=== PATIENT | female | born 1975 | race Caucasian/White ===

== ENCOUNTER 2016-10-31 08:42 | Day surgery (SDC) | payer OTHER ==
[~2016-10-31] VITALS: Ht 162.6 cm; Wt 87.5 kg
[2016-10-31] VITALS (10 sets, daily range): BP systolic 93–108; BP diastolic 40–65; PULSE 70–94; RESP 12–23; O2SAT 93–100
[~2016-10-31 08:42] MED LIST: ALBU8.5H4 IH; CARI350T PO; CeFAZolin Inj 2 GM in IV Premix 1 EACH IV SCH; DULO60CA42 PO; ESOM40CA41 PO; HYDR-3740 PO; HYDR-4150 PO; LEVO100T6 PO; MULT-1018 PO; ONDA8TAB10 PO; OXYC1TAB24 PO; PREG150C PO; RES15 PO; SIMV40TA5 PO; SUMA100T2 PO; TAMS0.4C98 PO
[2016-10-31] MEDS ORDERED: fentaNYL-PF 50 mCg/mL 2 mL Inj ONE (08:43)
[2016-10-31] MEDS ORDERED: Rocuronium 10 mg/mL 5 mL Inj ONE (08:43)
[2016-10-31] MEDS ORDERED: Dexamethasone 4 mg/mL Inj ONE (08:43)
[2016-10-31] MEDS ORDERED: Ondansetron 2 mg/mL 2 mL Inj ONE (08:43)
[2016-10-31] MEDS ORDERED: EPHEDrine/NS 5 mg/mL 5 mL Syringe ONE (08:43)
[2016-10-31] MEDS ORDERED: Propofol 10,000 mCg/mL 20 mL Inj ONE (08:43)
[2016-10-31] MEDS ORDERED: Neostigmine 1 mg/mL 5 mL Inj ONE (08:43)
[2016-10-31] MEDS ORDERED: Morphine PF 1 mg/mL 10 mL Inj ONE (08:43)
[2016-10-31] MEDS ORDERED: Remifentanil 1 mg/3 mL Inj ONE (08:43)
[2016-10-31] MEDS ORDERED: Glycopyrrolate 0.2 mg/mL 5 mL Inj ONE (08:43)
[2016-10-31] MEDS ORDERED: Phenylephrine 10,000 mCg/mL Inj ONE (08:43)
[2016-10-31] MEDS: Lactated Ringer's 1,000 ML IV SCH ×2 (09:13→11:51)
[2016-10-31] MEDS ORDERED: ALBU8.5H2 INHALATION (09:47)
[2016-10-31] MEDS ORDERED: LEVE10006 PO (09:59)
[2016-10-31] MEDS ORDERED: LEVO112T4 PO (09:59)
[2016-10-31] MEDS ORDERED: OXYC30TA77 PO (10:01)
[2016-10-31] MEDS ORDERED: BACL10TA PO (10:01)
[2016-10-31] MEDS ORDERED: CeFAZolin 2 Gm/50 mL D5W Duplex Bag IV ONE (11:47)
[2016-10-31] MEDS ORDERED: Bupivacaine-MPF 0.5% W/EPI 30 mL Inj INFILTRATE ONE (12:17)
[2016-10-31] MEDS ORDERED: Lactated Ringer's 1,000 ML IV SCH (12:23)
[2016-10-31] MEDS ORDERED: Lactated Ringer's 500 ML IV PRN (12:23)
[2016-10-31] MEDS ORDERED: hydrALAZINE 20 mg/mL Inj IVPUSH PRN (12:25)
[2016-10-31] MEDS ORDERED: Ondansetron 2 mg/mL 2 mL Inj IVPUSH PRN (12:25)
[2016-10-31] MEDS ORDERED: Atropine 0.4 mg/mL Inj IVPUSH PRN (12:25)
[2016-10-31] MEDS ORDERED: Labetalol 5 mg/mL 4 mL Inj IV PRN (12:25)
[2016-10-31] MEDS ORDERED: Phenylephrine 10,000 mCg/mL Inj IVPUSH PRN (12:25)
[2016-10-31] MEDS ORDERED: EPHEDrine Sulfate 50 mg/mL Inj IVPUSH PRN (12:25)
--- NOTE | 2016-10-31 12:25 | PCM.HPANE ---
Patient Data Date of Service: Oct 31, 2016 ([id number]) Surgeon Admitting Provider: Attending Provider:Nilesh Garrett MD Primary Care Physician:Dallin Schaefer Other Provider:Edenilson Ferrara Anesthesia Reason for Visit Right Breast Cancer Ht/WT & BMI Height (Feet): 5 Height (Inches): 4.00 Weight (Kilograms): 87.5 Body Mass Index 32.00 Allergies Coded Allergies: hydromorphone (Verified Allergy, Unknown, MAKES HER SICK, 03/01/16) meperidine (Verified Allergy, Unknown, IV - RUINS IV SITES, 03/01/16) metoclopramide (Verified Allergy, Unknown, MAKES HER FEEL LIKE SKIN CRAWLS BAD, 03/01/16) prochlorperazine (Verified Allergy, Unknown, 03/01/16) prochlorperazine edisylate (Verified Allergy, Unknown, 03/01/16) prochlorperazine maleate (Verified Allergy, Unknown, 03/01/16) promethazine (Verified Allergy, Unknown, 03/01/16) Uncoded Allergies: FLU VACCINE (Allergy, Unknown, 02/05/14) Past Anesthesia History Anesthesia History: Positive for:: Anesthesia Reactions (N/V WITH GASES ), Denies:: Abnormal Airway, Difficult Intubation, Fam Anesthesia Reaction, Fam Malignant Hypertherm, Malignant Hyperthermia Diabetes History Hx Diabetes?: No MRSA MRSA: No Medications Home Meds Incl Beta Nikolas: No Active Scripts Ondansetron ODT 8 Mg Tab.rapdis8 Mg PO QID PRN For Nausea #20 TABLET Prov:Mandeep Pickard MD 03/02/16 oxyCODONE-Acetaminophen 5-325 mg 1 Each Tablet1 Tab PO Q4H PRN For Pain #20 TABLET Prov:Mandeep Pickard MD 03/02/16 Reported Medications Baclofen 10 Mg Icubkj02 Mg PO QID #112 10/31/16 Oxycodone ER (Oxycontin)30 Mg Tab.er.12h30 Mg PO BID #60 10/31/16 Levothyroxine 112 Mcg Qdhnfe801 Mcg PO DAILY #30 10/31/16 Levetiracetam 1,000 Mg Tablet1,000 Mg PO BID #60 10/31/16 Albuterol HFA (Proair HFA)8.5 Gm Hfa.aer.ad2 Puffs INHALATION Q4H #1 INHALER 10/31/16 Duloxetine (Cymbalta)60 Mg Capsule.dr60 Mg PO DAILY Ref 0 06/08/15 Esomeprazole Magnesium (Nexium)40 Mg Capsule.dr40 Mg PO DAILY 30 Days Ref 0 03/06/15 Simvastatin 40 Mg Gyzomu78 Mg PO HS 30 Days Ref 0 03/06/15 Pregabalin (Lyrica)150 Mg Sdszvvq223 Mg PO TID Ref 0 03/06/15 Multivitamin (Multi Vitamin Daily)1 Each Tablet1 Each PO DAILY 02/05/14 Sumatriptan Succinate 100 Mg Ooqfhl76 PO PRN PRN headache Please verify dose/frequency, patient states 250mg QID. Maximum daily dosage is 200mg of sumatriptan succinate. 02/05/14 Discontinued Reported Medications Hydrocodone/Acetaminophen ([place]erson 5-325 Tablet)1 Each Tablet1 Each PO QID 06/08/15 Temazepam 15 Mg Deqiyot54 Mg PO HS PRN For Insomnia 30 Days Ref 0 03/06/15 Levothyroxine 100 Mcg Lggcfh852 Mcg PO DAILY For Thyroid Replacement Ref 0 03/06/15 Carisoprodol (Soma)350 Mg Zksbrc525 Mg PO QID PRN For Spasm 03/06/15 Ondansetron ODT 8 Mg Tab.rapdis8 Mg PO PRN PRN prn 02/20/15 Albuterol HFA 8.5 Gm Hfa.aer.ad2 Puff IH Q4-6H PRN prn Ref 0 02/05/14 Nadolol 20 Mg Agwxac92 Mg PO DAILY 30 Days Ref 0 02/05/14 Discontinued Scripts Tamsulosin (Flomax)0.4 Mg Capsule0.4 Mg PO DAILY #2 CAPSULE Ref 0 Prov:Mandeep Pickard MD 02/09/16 Ondansetron ODT 8 Mg Tab.rapdis8 Mg PO QID #10 TABLET Prov:Mandeep Pickard MD 02/09/16 Hydrocodone-Acetaminophen 10-325 mg 1 Each Tablet2 Tablet PO Q6H PRN For Pain # 30 TABLET Ref 0 Prov:Mandeep Pickard MD 02/09/16 History History of ENT Problems?: No HEENT History: Positive for:: Sinus Problem (sinus allergies) Denies:: Abnormal Airway Cataracts Difficult Intubation Dysphagia Glaucoma Hearing Problem Hx of Heart Problems?: No Cardiovascular History: Positive for:: Chest Pain (cardiology seen here in ER , everything "fine") Denies:: AICD Atrial Fibrillation Congestive Heart Failure Hypertension Pacemaker Valvular Heart Disease Hx of Respiratory Problem?: Yes Respiratory History: Positive for:: Asthma Use of Inhalers / NEBS Denies:: COPD Cough Hemoptysis Pneumonia Tuberculosis Hx Neurologic Problems?: No Neurological History: Positive for:: Headaches (migraine h/aches) Seizures (MILD COLONICS) Denies:: CVA Dementia Hx of GI Problems?: No Gastrointestinal History: Positive for:: Gastroesphageal Reflux Hiatal Hernia (FIXED WITH GASTRIC SLEEVE PROCEDURE 2013 ) Denies:: Cirrhosis Diverticulitis Rectal Bleeding Hx of Problems?: No Genitourinary History: Positive for:: Kidney Stones Urinary Tract Infection Female Hx: Denies:: Currently Endometriosis Pelvic Inflammatory Problems with Breasts? Skin History: Denies:: History Skin Disorders? Hx Musculoskeletal Problems?: Yes Musculoskeletal History: Positive for:: Back Injury (past injuries,NEURO STIMULATOR IN PLACE) Fibromyalgia Musculoskeletal Trauma (WRIST, ANKEL) Osteoarthritis (SPINE) Denies:: Joint Replacement Hx of Psycho/Social Problems?: Yes Psycho Social History: Positive for:: Anxiety (CHRONIC) Hx Depression (MAJOR) Suicide Attempt (at age 18) Denies:: Bipolar Disorder Hx Surgeries?: Yes (BREAST REDUCTION, SPINAL CORD STIM, GASTRIC SLEAVE, LAP DEVIN.) Hx Any Other Health Problems?: Yes Other History: Positive for:: Cancer (R BREAST) Hospitalization Thyroid Disease (HYPO) Denies:: Endocrine Disease History Blood Transfusions: Denies:: Blood Transfusions Hx Diabetes: No Hx Alcohol Use: NoHx Substance Use: No Smoking Status: Never Smoker Have You Smoked inLast 12 mo: No Stop/Bang S-Snoring: Do You Snore Loudly: No T-Tired: feel tired, fatigued: Yes O-Obsered: Observed not breath: No P-Blood Pressure: treated: No B- Body Mass Index > 35 kg/m2: No A- Age over 50: No N- Neck Large Circumference: No G- Gender Male: No MILLY Total Score: 1 Risk Assessment Category Category 1A: Patient has history of documented sleep apnea, and HAS NOT received any narcotic, sedative or anesthesia administration during this stay. Category 1B: Patient has history of documented sleep apnea, and HAS received any narcotic , sedative or anesthesia administration during this stay Category 2: Patient has SUSPECTED Obstructive Sleep Apnea, and HAS received any narcotic , sedative or anesthesia administration during this stay. Category 3: Patient has SUSPECTED Obstructive Sleep Apnea and HAS NOT received narcotic, sedative or anesthesia administration during this stay. Category 4: Outpatient in Procedural Areas with known sleep apnea or who screen positive for High Risk via the STOP/BANG questionnaire. Exam Exam Vital Signs Vital Signs Date Time Temp Pulse Resp B/P Pulse Ox O2 Delivery O2 Flow Rate FiO2 10/31/16 10:23 CPAP/BIPAP 10/31/16 10:22 36.4 82 16 98/65 97 Room Air General Appearance: Alert, Oriented X3, Cooperative, No Acute Distress HEENT/AIRWAY: MP 2 Lungs: Clear to Auscultation, Normal Air Movement Heart: Exam Unremarkable, Regular Rate/Rhythm, No Murmurs/Rubs/Gallops Meds/Labs/Diagnostics Admission Meds Current Medications Lactated Ringer's (Lr) 1,000 ml @ 120 mls/hr Q8H20M IV Last administered on 11:51; Start 10/31/16 at 05:00; Stop 10/31/16 at 13:19 Bupivacaine HCl/ Epinephrine Bitart (Sensorcaine-MPF 0.5% W/EPI Inj) 30 ml STK- MED ONCE INFILTRATE Last administered on 10/31/16 12:17; Start 10/31/16 at 12: 17; Stop 10/31/16 at 12:18; Status DC Plan Impression Patient chart reviewed, patient interviewed and anesthestic plan with risks, benefits, and alternatives discussed, and informed consent obtained. NPO Status: 2100 10/30/16 ASA Physical Status: ASA3 Severe Disease (Breast cancer) Anesthetic Plan: GA Bene/Risks/Altern/Consents: Yes HP Complete Prior to Induction: Yes Baltazar Paniagua MD Oct 31, 2016 12:25
--- NOTE | 2016-10-31 13:17 | PCM.SURGOP ---
Surgical Operative Report Date of Service: Oct 31, 2016 Pre Operative Diagnosis Right breast cancer Post Operative Diagnosis Same Procedure: Wire localized right partial mastectomy, right axillary sentinel lymph node biopsy Surgeon and Director Of Midwifery/Staff Midwife: Surgeon: Nilesh Garrett MD Assistants: Rosalind Melo PA-C Indication for Procedure 40-year-old woman who was found on screening mammogram to have branching heterogeneous calcifications in the right breast 11 o'clock position. 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 She could not have an MRI because of a spinal neurostimulator. After discussion of risks and benefits, she agreed to proceed with wire localized right partial mastectomy and right axillary sentinel lymph node biopsy. Findings: There were 2 sentinel nodes. The first sentinel node had an ex vivo gamma count of 509, the second sentinel node had an ex vivo count of 516, and the background count was 7. Procedure Details Preoperatively, the patient underwent wire localization in the [facility]. She then underwent right breast radiotracer injection for sentinel node identification, which was done just lateral to her breast reduction scar. She was then brought to the operating room, where she underwent smooth induction of general anesthesia with an LMA. The right breast was prepped and draped in wide sterile fashion. A procedural pause was performed according to the SCOAP checklist, and all were found to be in agreement. A transverse incision was made in the upper outer quadrant of the right breast, encompassing the wire into the lateral aspect of the incision. Skin flaps were raised superiorly and inferiorly. Once the thick part of the wire was encountered, the wire was used as a guide to perform partial mastectomy. Right breast tissue was dissected free around the wire, and the wire was not encountered during dissection. The tissue was oriented with suture, labeled as right breast tissue, upper outer quadrant, and a specimen radiograph was obtained. This confirmed that the mammographic clip and calcifications had been localized successfully. That tissue was sent for permanent pathology. Separate shave margins were sent separately from the inferior, medial, and lateral aspects of the cavity. Those specimens were 5-10 mm in thickness. There is oriented with suture, and sent for permanent pathology, labeled as inferior margin, medial margin, lateral margin respectively. The cavity was then marked with hemoclips circumferentially. The breast parenchyma was closed with a single deep 3-0 Vicryl suture. [place] lymph node biopsy was then performed through a separate incision made at the inferior border of the hairbearing skin of the right axilla. Dissection was carried down through the subcutaneous tissue until the axillary fascia was incised. Using the gamma counter as a guide, the area of maximum radiotracer activity was identified and dissected free from the surrounding tissue. There were actually 2 separate sentinel nodes. The first sentinel node had an ex vivo count of 509. The second sentinel node had an ex vivo count of 516. Both nodes were small, and not particularly firm by palpation. There were sent separately for permanent pathology. The background count in the right axilla was 7. The axillary fascia was closed with a single deep 3-0 Vicryl suture. Both skin incisions were closed using running 4-0 Vicryl subcuticular stitches. Dermabond was applied to the skin as a dressing. At the end of the case all needle and sponge counts were correct 2. The patient was awakened from anesthesia without difficulty, and taken to the recovery room in satisfactory condition, having tolerated the procedure well. Complications There were no periprocedural complications identified. Surgical Specimen Removed: Yes Specimen sent to Pathology: Yes Surgical Specimen description: Right breast tissue, upper outer quadrant. Inferior margin. Medial margin. Lateral margin. Right axillary sentinel lymph node #1. Right axillary sentinel lymph node #2. Anesthetic Plan: GA Grafts, Implants: None Output, Estimated Blood Loss: 20 Blood Administration during gurrola: No Drains: None Catheters: None copies to: Kel Santiago MD; Scott Weber MD; Dallin Schaefer Joshua D MD Oct 31, 2016 13:17
[2016-10-31] MEDS: fentaNYL-PF 50 mCg/mL 2 mL Inj IVPUSH PRN ×2 (13:30→13:38)
--- NOTE | 2016-10-31 16:24 | PCM.ANEP1 ---
Post Anesthesia Phase 1 PACU Phase 1 Assessment Date of Service: Oct 31, 2016 Vital Signs Vital Signs Date Time Temp Pulse Resp B/P Pulse Ox O2 Delivery O2 Flow Rate FiO2 10/31/16 15:15 72 13 101/48 96 Room Air 10/31/16 14:15 36.5 70 14 99/54 96 Room Air 10/31/16 14:03 36.4 77 12 98/50 93 Room Air 10/31/16 14:00 80 13 93/43 95 Room Air 10/31/16 13:50 78 15 97/40 96 Room Air 10/31/16 13:35 85 16 100/59 96 Room Air 10/31/16 13:30 89 16 96/55 96 Room Air 10/31/16 13:25 88 23 101/48 96 Room Air 10/31/16 13:21 36.4 94 13 108/63 100 Simple Mask 8 10/31/16 10:23 CPAP/BIPAP 10/31/16 10:22 36.4 82 16 98/65 97 Room Air Anesthetic Administered: GA Level of Alertness: Awake, talking SALINAS's with Equal Strength: Yes Pain: No Nausea or Vomiting: No Oxygen Delivery: Simple Mask Lungs: Clear to Auscultation, Normal Air Movement Dermatome Level: Full Sensation Baltazar Paniagua MD Oct 31, 2016 16:24
--- NOTE | 2016-10-31 16:24 | PCM.ANEP2 ---
Post Anesthesia Evaluation ASA/CMS Post Anesthesia VS in Patient's Normal Range?: Yes Resp Stable; Airway Patent?: Yes CV Function & Hydration Stable: Yes Mental Status Recovered?: Yes Pain control Satisfactory?: Yes N/V Control Satisfactory?: Yes Baltazar Paniagua MD Oct 31, 2016 16:24
--- NOTE | 2016-10-31 17:59 | DRSVH ---
PROCEDURE: NM SENTINEL NODE INJECTION ONLY, RIGHT BREAST RADIOPHARMACEUTICAL: 0.5 mCi Millipore filtered Tc-99m sulfur colloid. INDICATIONS: BREAST CANCER PROCEDURE: The indications, alternatives, benefits, risks, and complications of the procedure were explained to the patient. Written informed consent was obtained and placed in the chart. The area around the nip ple was prepped and draped in a sterile fashion. Tc-99m sulfur colloid was injected in the outer edg e of the areola in the right breast. No image was obtained. IMPRESSION: Administration of radiotracer into the right breast periareolar region for intra-operati ve sentinel lymph node localization. Dictated by: Andie Meier M.D. on 10/31/2016 at 17:58 Approved by: Andie Meier M.D. on 10/31/2016 at 17:58
--- NOTE | 2016-11-01 07:20 | DRSVH ---
SPECIMEN RIGHT BREAST: 10/31/2016 CLINICAL: Breast specimen. Correlation is made to exams dated: 10/31/2016 localization, 10/31/2016 mammogram, 10/02/2016 mammogra m, and 09/19/2016 mammogram - [facility]. A lumpectomy specimen was imaged for the concerning area of grouped pleomorphic calcifications locat ed in the right breast at 9 o'clock anterior depth. This was described on the previous mammography a nd biopsy reports. IMPRESSION: SPECIMEN The imaged specimen includes the calcifications, a biopsy clip, and the distal portion of the localiz ation wire. Waiting for pathology results. A final report will be issued when these become availabl e. This exam was interpreted at Station ID: [id number]. Mitchell butler/vivienne:10/31/2016 12:57:01 copy to: FLOYD WALDEN Additional referring physicians: EFRAIN VERMA JONATHAN WOLJO
--- NOTE | 2016-11-06 15:41 | PATH ---
SURGICAL PATHOLOGY Attending Physician:Leslye Norman CASE STATUS: Signed Out PATIENT NAME: MATTHEW PALOMARES PID: [id number] : 1975 DATE COLLECTED:10/31/2016 20:37 SPECIMEN: 1: Breast mass, oriented 2: Breast Margin 3: Breast Margin 4: Breast Margin 5: Molino Lymph Node 6: [place] Lymph Node CLINICAL HISTORY: RIGHT BREAST CANCER 1). RIGHT BREAST TISSUE LONG LATERAL SHORT SUPERIOR 2). INFERIOR MARGIN LONG LATERAL SHORT ANTERIOR 3). MEDIAL MARGIN SHORT SUPERIOR LONG ANTERIOR 4). LATERAL MARGIN SHORT SUPERIOR LONG ANTERIOR 5). SENTINEL NODE #1 6). SENTINEL NODE #2 FINAL DIAGNOSIS: 1. Right Breast Tissue: Invasive carcinoma of the breast. Procedure: Excision with image-guided localization. Lymph node sampling: Molino lymph nodes (see parts 5 and 6). Specimen laterality: Right. Tumor site: Not specified. Tumor size: Size of invasive carcinoma: 7 mm. Histologic type: Invasive ductal carcinoma, NOS. Histologic grade: ([place] histologic score): Tubular differentiation: Score 3. Nuclear pleomorphism: Score 3. Mitotic score: Score 1. Overall grade : Grade 2 (score 7/9). Tumor focality: Single focus of invasive carcinoma. Ductal carcinoma (DCIS): DCIS is present. Positive for EIC. Size (extent of DCIS): Estimated 20 mm extent plus a 2 mm focus near the lateral margin, see comment. Architectural pattern: Solid. Nuclear grade: High. Necrosis: Present. Lobular carcinoma in situ: Not identified. Margins: Invasive carcinoma: Margins are uninvolved by invasive carcinoma. Distance from closest margin: 1 mm from inferior margin (see part 2 for additional inferior margin). DCIS margin: Margin positive for DCIS: Inferior, approximately 7 mm extent (see part 2 for additional inferior margin). Lymph nodes (see parts 5 and 6): Total number of lymph nodes examined: Two. Number of sentinel lymph nodes examined: Two. Number of lymph nodes with metastases: Zero. Lymph-vascular invasion: Not identified. Pathologic staging (pTNM): Primary tumor: pT1b. Regional lymph nodes: pN0(sn). Additional pathologic findings: Core biopsy cavity identified in region of tumor. Ancillary studies: See prior core biopsy report for results of ER, MD and HER-2 studies. Microcalcifications: Present in DCIS and invasive carcinoma. 2. Inferior Margin: 2 mm focus of DCIS, 2 mm from the inferior margin. Final inked inferior margin is negative for in situ and invasive carcinoma. 3. Medial Margin: Benign breast tissue. No in situ or invasive carcinoma identified. 4. Lateral Margin: Benign breast tissue. No in situ or invasive carcinoma identified. 5. Molino Lymph Node #1: One lymph node identified, negative for metastatic carcinoma. 6. [place] Lymph Node #2: One lymph node, negative for metastatic carcinoma. ICD10: C50.411 NOTE: DCIS is present in contiguous slices from the medial portion of the lumpectomy specimen (slices 3-8), representing approximately a 20 mm span. In addition, there is a 2 mm focus of DCIS at the lateral margin (slice 14) of the lumpectomy specimen. The focus of invasive carcinoma is in slice 7, associated with the larger area of DCIS. No DCIS is present in the tissue sampled between slices 8 and 14, and the additional lateral margin tissue (specimen 4) is negative for DCIS or invasive carcinoma. There is also a 2 mm focus of DCIS in the additional inferior margin tissue (specimen 2). This is 2 mm from the final (inked) inferior margin. GROSS DESCRIPTION: The specimens are received in formalin, labeled with the patient's name, and sublabeled as the following: (1) right breast tissue; (2) inferior margin; (3) medial margin; (A4) lateral margin; (5) sentinel node #1; (6) sentinel node #2. (1) The specimen consists of a piece of breast tissue (2.8 cm AP, 3.4 cm SI, 4.6 cm ML) with no overlying skin. The specimen is oriented with 2 black sutures (long/lateral, short-superior). A localization wire is present. The specimen is serially sectioned ML into 14 slices with the medial and lateral resection margins has slices #1 and #14 respectively. The breast tissue is fatty and contains a pale yellow solid firm irregular mass (3.5 x 1.5 x 1.1 cm) within slices #2-#12. The mass is 0.6 cm from the anterior, 0.4 cm from the posterior, 1.1 cm from the superior, 0.1 cm from the inferior, 0.5 cm from the medial, and 0.6 cm of the lateral resection margins. No other nodules, masses or lesions are identified. Ink code: purple-anterior; yellow-posterior; black-superior; orange-inferior; green-medial; blue-lateral. Section code: (1A) medial resection margin, perpendicularly sectioned, entirely submitted; (1B) slice #2, entirely submitted; (1C) slice #3, entirely submitted; (1D) slice #5, entirely submitted; (1E) slice #7, trisected AP, middle third submitted; (1F) slice #8, bisected AP, anterior half submitted; (1G) slice #9, bisected SI, inferior half submitted; (1H-1I) slice #10, bisected and submitted as side, entirely submitted; (1J) slice #12, entirely submitted; (1K) slice #13, entirely submitted; (1L) lateral resection margin, perpendicularly sectioned, entirely submitted. (2) The specimen consists of a piece of breast tissue (2.7 cm AP, 1.1 cm SI, 4.6 cm ML) with no overlying skin. The specimen is oriented with 2 black sutures (long-lateral, short-anterior). No localization wire is present. The breast tissue is fatty with no nodules masses or lesions identified. Ink code: purple-anterior; yellow-posterior; black-superior; orange-inferior; green-medial; blue-lateral. Section code: (2A-2C) breast tissue, serially sectioned ML with the medial and lateral resection margins particularly sectioned, videotape sales representative. (3) The specimen consists of a piece of breast tissue (3.0 cm AP, 4.1 cm SI, 1.2 cm ML) with no overlying skin. The specimen is oriented with 2 black sutures (long-anterior, short-superior). No localization wire is present. The breast tissue is fatty with no nodules masses or lesions identified. Ink code: purple-anterior; yellow-posterior; black-superior; orange-inferior; green-medial; blue-lateral. Section code: (3A-3C) breast tissue, serially sectioned SI with the superior and inferior resection margins particularly sectioned, videotape sales representative. (4) The specimen consists of a piece of breast tissue (2.2 cm AP, 3.5 cm SI, 0.7 cm ML) with no overlying skin. The specimen is oriented with 2 black sutures (long-anterior, short-superior). No localization wire is present. The breast tissue is fatty with no nodules masses or lesions identified. Ink code: purple-anterior; yellow-posterior; black-superior; orange-inferior; green-medial; blue-lateral. Section code: (4A, 4B) breast tissue, serially sectioned SI with the superior and inferior resection margins particularly sectioned, videotape sales representative. (5) The specimen consists of a piece of adipose tissue (3.2 x 2.4 x 0.7 cm) containing a lymph node (1.1 x 0.7 x 0.5 cm). Section code: (5A) one lymph node, serially sectioned. (6 the specimen consists of a lymph node (0.8 x 0.4 x 0.2 cm). Section code: (6A) one lymph node, serially sectioned. Specimen entirely submitted. Note: Approximate total fixation time in formalin for all specimens-29 hours calculated using a collection date of October 31, 2016 with times in fixative of 6084-1959. 11/01/16 JM MICRO DESCRIPTION: 1. Sections show ductal carcinoma in situ in slices 3, 5, 7 and 8 (1C, 1D, 1E, 1F) and a focus in 1L. An area of possible invasion is identified in 1F. Immunohistochemical stains are performed to further characterize this area. The focus near the lateral margin (1L) is also evaluated with immunohistochemical stains to rule out invasion. The following blocks of patient tissue are stained with the following antibodies, with the following results. Positive and negative controls stain appropriately. Cell block 1E: Smooth muscle myosin heavy chain:No staining around the atypical cell groups in question. Interpretation: This result supports the H&E impression of invasive carcinoma. Block 1L: Smooth muscle myosin heavy chain:Patchy staining around atypical groups in question. p63: Patchy staining around atypical groups. Interpretation: This staining pattern supports the H&E impression of DCIS, but no invasion. * This test was developed and its performance characteristics determined by [facility]. It has not been cleared or approved by the U.S. Food and Drug Administration. The FDA has determined that such clearance or approval is not necessary. This test is used for clinical purposes. It should not be regarded as investigational or for research. ICD-9 CODES: CPT CODES: 1: 00374, 33534, 77195, 42605 2: 74728 3: 87995 4: 87402 5: 24659 6: 88110 PROCEDURE/ADDENDA: Addendum SPI Addendum Diagnosis Slides reviewed at [facility] Anatomic Pathology by Elba Shannon MD, PhD Pathologist Right breast, lumpectomy: Invasive ductal carcinoma with the following features (part 1): -Mirela grade 2 of 3: Poor tubule formation, high nuclear grade, low mitotic activity -Size: 0.7 cm in greatest dimension -Ductal carcinoma in-situ, high nuclear grade with necrosis and microcalcifications -No definitive lymphovascular invasion identified -Margins: oInvasive carcinoma focally present within 0.1 cm from the inferior and 0.2 cm from the lateral margins DCIS present at the inked inferior margin (approximately 0.7 cm span); see comment. Inferior margin, excision (part 2): -Negative for invasive carcinoma -Ductal carcinoma in-situ, high nuclear grade with necrosis, 0.2 cm from the final margin Medial margin, excision (part 3): -Breast tissue, negative for carcinoma Lateral margin, excision (part 4): -Breast tissue, negative for carcinoma Molino lymph node #1, excisional biopsy (part5): -1 lymph node, negative for carcinoma [place]ino lymph node #2, excisional biopsy (part 6): -1 lymph node, negative for carcinoma COMMENT: Thank you for sending us this interesting and challenging case in consultation. The focus of concern in block 1L shows a combination of regular nests of neoplastic cells with a lobular architectural pattern, as well as separate irregular nests with an infiltrative patter, morphologically similar to the dominant invasive carcinoma present within the lumpectomy. Immunohistochemical stains performed at the outside institution and reviewed at [facility] show few cells with weak staining for SMMHC, and complete loss of p63 staining around the foci suspicious for invasive carcinoma. Overall, given the loss of both myoepithelial markers around the totality of several suspicious nests, we consider this to represent invasive ductal carcinoma with an associated in-situ component. In summary, the lumpectomy specimen contains a dominant focus of invasive ductal carcinoma (0.7 cm) with a separate satellite focus of invasion lateral to the main tumor mass. Ductal carcinoma in situ spans approximately 2.0 cm within the lumpectomy. Once again, thank you for sending this challenging case. Please do not hesitate to contact us if you have any additional questions. Addendum Comment Please see [facility] report [id number] for complete details. Electronically Signed Out Leia Malave MD Addendum SPI Addendum Diagnosis TEST: Oncotype DX Breast Recurrence Score Recurrence Score Result: 33 ER Score: 9.6 Positive MD Score: 6.5 Positive HER2 Score:8.0 Negative Addendum Comment Please see [email or web address] report [id number] for complete details. Testing performed and Interpreted by [email or web address], [place], [place]. Electronically Signed Out Swathi Marques MD Electronically Signed Out Leia Malave MD [facility] Pathology [facility] [address], [place] [address] Technical component performed at [facility], [address], [place], [address]
[2016-12-20] MEDS ORDERED: DOXE10CA PO (10:52)
== END 2016-10-31 23:59 | disposition home or self-care (01) ==
LOC: SAS 08:42
PROVIDERS: ATTEND Student in an Organized Health Care Education/Training Program
DX: C50.411 Malignant neoplasm of upper-outer quadrant of right female breast (principal); Z17.0 Estrogen receptor positive status [ER+]; J45.909 Unspecified asthma, uncomplicated; M79.7 Fibromyalgia; G47.30 Sleep apnea, unspecified
CPT/HCPCS: 19301; 38745; 38792; 76098; A9541; J0690; J1100; J2250; J2270; J2274; J2370; J2405; J2710; J7120

== ENCOUNTER 2016-12-07 04:56 | Emergency (ER) | payer OTHER ==
[~2016-12-07] VITALS: Ht 162.6 cm; Wt 86.4 kg
[~2016-12-07 04:56] MED LIST changes: +ALBU8.5H2 INHALATION; -ALBU8.5H4 IH; +BACL10TA PO; -CARI350T PO; -CeFAZolin Inj 2 GM in IV Premix 1 EACH IV SCH; -HYDR-3740 PO; -HYDR-4150 PO; +LEVE10006 PO; -LEVO100T6 PO; +LEVO112T4 PO; +OXYC30TA77 PO; -RES15 PO; -TAMS0.4C98 PO
[2016-12-07 05:03] VITALS: BP 109/66; PULSE 78; RESP 16; O2SAT 97
[2016-12-07] MEDS ORDERED: Albuterol-Ipratropium 3 mL Inhalation Solution NEB ONE (05:35)
[2016-12-07] MEDS ORDERED: Albuterol 2.5 mg/3 mL Inhalation Solution NEB ONE (05:35)
[2016-12-07 05:41] VITALS: PULSE 74; RESP 20; O2SAT 97
[2016-12-07] MEDS ORDERED: GUAI400T57 PO (06:09)
[2016-12-07] MEDS ORDERED: ONDA-54 PO (06:09)
[2016-12-07] MEDS ORDERED: DOCU-41 PO (06:09)
[2016-12-07] MEDS ORDERED: LEVE500T3 PO (06:09)
[2016-12-07] MEDS ORDERED: IBUP-1827 PO (06:09)
[2016-12-07] MEDS ORDERED: 0.9% Sodium Chloride 1,000 ML IV ONE (06:18)
[2016-12-07 06:39] LABS: BASOPHILS % (AUTO) 0.2 % (0-3); EOSINOPHILS % (AUTO) 0.2 % (0-5); MONOCYTES % (AUTO) 4.1 % (4-12); Mean Corpuscular Volume 81.6 fL (81-100); NEUTROPHILS % (AUTO) 71.1 % (40-74); Platelet Count 208 bil/L (150-400)
[2016-12-07] MEDS ORDERED: CETI10CA PO (06:52)
[2016-12-07] MEDS ORDERED: ARIP20TA8 PO (06:52)
[2016-12-07] MEDS ORDERED: PRE10 PO (07:05)
[2016-12-07 07:24] LABS: TROPONIN T < 0.010 ug/L (0.0-0.011)
--- NOTE | 2016-12-07 07:30 | ED.REPORT ---
HPI-General Illness Date of Service Dec 07, 2016 ED Provider: Liliane Hooper MD Patient is a 40 year old female w/ recently diagnosed DCIS and invasive breast cancer on the right breast who presents to the ED via EMS due to chest pressure and SOB early this morning. She was seen at a walk in clinic 8 days ago for asthma symptoms and a cough, where they gave her a prednisone taper and cough suppressant. Patient heart rate is at 120 and states that it, "feels my heart is racing and an elephant is sitting on my chest." Last month, she had a partial mastectomy and 2 lymph nodes removed. Nursing Notes Stated Complaint: COUGH Chief Complaint: Respiratory Distress Nursing Notes Reviewed: Yes Allergies: Coded Allergies: hydromorphone (Verified Allergy, Unknown, MAKES HER SICK, 12/07/16) meperidine (Verified Allergy, Unknown, IV - RUINS IV SITES, 12/07/16) metoclopramide (Verified Allergy, Unknown, MAKES HER FEEL LIKE SKIN CRAWLS BAD, 12/07/16) prochlorperazine (Verified Allergy, Unknown, 12/07/16) prochlorperazine edisylate (Verified Allergy, Unknown, 03/01/16) prochlorperazine maleate (Verified Allergy, Unknown, 03/01/16) promethazine (Verified Allergy, Unknown, 03/01/16) Uncoded Allergies: FLU VACCINE (Allergy, Unknown, 02/05/14) Scheduled Albuterol HFA (Proair HFA) 8.5 Gm Hfa.aer.ad 2 PUFFS INHALATION Q4H Aripiprazole (Abilify) 20 Mg Tablet 20 MG PO DAILY Baclofen (Baclofen) 10 Mg Tablet 10 MG PO QID Cetirizine HCl (Zyrtec) 10 Mg Capsule 10 MG PO HS Duloxetine (Cymbalta) 60 Mg Capsule. 60 MG PO DAILY Esomeprazole Magnesium (Nexium) 40 Mg Capsule.dr 40 MG PO DAILY Guaifenesin (Guaifenesin) 400 Mg Tablet 400 MG PO BID Levetiracetam (Levetiracetam) 500 Mg Tablet 500 MG PO BID Levothyroxine (Levothyroxine) 112 Mcg Tablet 112 MCG PO DAILY Multivitamin (Multi Vitamin Daily) 1 Each Tablet 1 EACH PO DAILY Ondansetron (Ondansetron) 8 Mg Tablet 8 MG PO TID Oxycodone ER (Oxycontin) 30 Mg Tab.er.12h 30 MG PO BID Prednisone (PredniSONE) 10 Mg Tablet 10 MG PO DAILY 3 tabs x2 days, 2 tabs x2 days, then 1 tab x2 days Prednisone (PredniSONE) 20 Mg Tablet 20 MG PO DAILY 12/08 60mg, 12/09 40mg, 12/10,27 20mg 12/12,29 10mg then stop Pregabalin (Lyrica) 150 Mg Capsule 150 MG PO TID Simvastatin (Simvastatin) 40 Mg Tablet 40 MG PO HS Scheduled PRN Docusate Sodium (Colace) 100 Mg Capsule 200 MG PO DAILY PRN PRN For Constipation Ibuprofen (Ibuprofen) 600 Mg Tablet 600 MG PO TID PRN PRN For Pain Sumatriptan Succinate (Sumatriptan Succinate) 100 Mg Tablet 100 MG PO PRN PRN PRN headache Please verify dose/frequency, patient states 250mg QID. Maximum daily dosage is 200mg of sumatriptan succinate. oxyCODONE-Acetaminophen 5-325 mg (oxyCODONE-Acetaminophen 5-325 mg) 1 Each Tablet 1 TAB PO Q4H PRN PRN For Pain General Time Seen by MD: 06:03 Chief Complaint Other (shortness of breath) Hx Obtained From: Patient Arrived By: Ambulance Sudden in Onset?: Yes Onset Occurred: Just prior to arrival Symptom Duration: Since onset Location: : Chest Quality: Pressure Severity: Current: Mild Recent Healthcare: Recent doctor visit, Recent hospitalization, Previous surgery Similar Sx Previous: No Past Medical History Past Medical History DCIS and invasive breast cancer on right breast Fibromyalgia Sleep apnea IBS Hypothyroid Kidney stones hiatal hernia recent pyelonephritis Reports: Asthma, GERD Reports: Depression, Migraines, Thyroid disease, Urinary tract infection Past Surgical History Lithotripsy Breast reduction 2008 spinal chord stimulator 04/2015 gastric sleeve 2014 Reports: Cholecystectomy (2006) Family History A-fib Smoking History Never Smoker Social History Alcohol Use: Denies alcohol use Drug Use: Denies drug use Ambulatory Status Independent Review of Systems Full Review of Systems Respiratory: Reports: Non-productive cough, Shortness of breath Cardiovascular: Reports: Chest pain Complete sys rev & neg: except as marked. Physical Exam surgical scar on right breast healed Vital Signs Vital Signs Date Time Temp Pulse Resp B/P Pulse Ox O2 Delivery O2 Flow Rate FiO2 12/07/16 11:02 36.7 84 10 95/62 97 Room Air 1 12/07/16 10:40 84 10 95/62 97 Room Air 12/07/16 09:07 81 9 100/51 95 Nasal Cannula 1 12/07/16 05:41 74 20 97 Room Air 12/07/16 05:03 36.7 78 16 109/66 97 Nasal Cannula 2 Initial VS: Reviewed Head / Eyes: Atraumatic, Normocephalic, PERRL ENT: Mucous membranes moist, Conjunctiva normal, No scleral icterus Neck: Supple, Non-tender, Full range of motion Abdomen / GI: Soft, Non-tender, No guarding, No rebound, No distention Skin: Warm, Dry, No cyanosis Neurologic: Alert, Oriented, Nonfocal Psychiatric: Mood/affect normal, Behavior normal, Normal thought content General/Constitutional: Awake, Alert Respiratory / Chest: Atraumatic, Breath sounds NL, Breath sounds = bilat, No respiratory distress, No rales, No rhonchi, No wheezing Heart Rate / Rhythm: Positive: Tachycardia Heart Sounds / Murmur: Positive: Murmur location... (heard at upper border ), Murmur radiation... (radiating into the neck ), Systolic murmur present.. (IV/ ) Abdomen: Atraumatic, Soft, Non-tender, No guarding, No rebound, BS normoactive Lower Extremity / Pelvis / MS: No edema Interpretation & Diagnostics ANGIOGRAPHY CT IMPRESSION: 1. No evidence of pulmonary embolism. 2. Postsurgical changes in the right breast consistent with partial mastectomy. No lymphadenopathy in the chest by CT criteria. 3. Small to moderate-sized hiatal hernia with concentric wall thickening in the distal esophagus which may reflect reflux esophagitis. Dictated by: Bhupendra Cheng M.D. on 12/07/2016 at 9:00 Approved by: Bhupendra Cheng M.D. on 12/07/2016 at 9:06 Lab Results Interpretation Result Diagram: 12/07/16 0625 12/07/16 0625 Test 12/07/16 06:25 12/07/16 06:55 12/07/16 07:49 White Blood Count 4.7th/mm3 (3.8-10.1) Red Blood Count 4.35mil/mm3 (3.90-5.20) Hemoglobin 11.3g/dL (12.0-15.6) Hematocrit 35.5% (35.0-46.0) Mean Corpuscular Volume 81.6fL (81-100) Mean Corpuscular Hemoglobin 26.0pg (27.0-35.0) Mean Corpuscular Hemoglobin Concent 31.8% (32.0-37.0) Red Cell Distribution Width 14.9% (12.3-15.4) Platelet Count 208bil/L (150-400) Neutrophils (%) (Auto) 71.1% (40-74) Lymphocytes (%) (Auto) 24.0% (14-46) Monocytes (%) (Auto) 4.1% (4-12) Eosinophils (%) (Auto) 0.2% (0-5) Basophils (%) (Auto) 0.2% (0-3) Sodium Level 141mEq/L (134-144) Potassium Level 3.6mEq/L (3.5-5.2) Chloride Level 102mEq/L (97-108) Carbon Dioxide Level 24mmol/L (18-29) Blood Urea Nitrogen 12mg/dL (6-24) Creatinine 0.95mg/dL (0.57-1.00) Estimat Glomerular Filtration Rate 92mL/min (>59) Glucose Level 137mg/dL (60-99) Lactic Acid Level 2.9mmol/L (0.4-2.0) Calcium Level 8.7mg/dL (8.5-10.1) Total Bilirubin 0.2mg/dL (0.0-1.2) Aspartate Amino Transf (AST/SGOT) 18U/L (0-50) Alanine Aminotransferase (ALT/SGPT) 19U/L (0-32) Alkaline Phosphatase 121U/L (25-150) Troponin T < 0.010ug/L (0.0-0.011) Total Protein 6.9g/dL (6.4-8.4) Albumin 3.9g/dL (3.4-5.0) Hold Johnson Top Tube Received (Received) Urine Color Straw (YELLOW) Urine Appearance Clear (CLEAR,HAZY) Urine pH 7.0 (5.0-8.0) Urine Specific [place] 1.010 (1.003-1.035) Urine Protein Negativemg/dL (NEG,TRACE) Urine Glucose (UA) Negativemg/dL (NEGATIVE) Urine Ketones Negativemg/dL (NEGATIVE) Urine Occult Blood Trace (NEGATIVE) Urine Nitrite Negative (NEGATIVE) Urine Bilirubin Negative (NEGATIVE) Urine Urobilinogen Normalmg/dL (NORMAL) Urine Leukocyte Esterase Trace (NEGATIVE) Urine RBC 0-2/hpf (0-2) Urine WBC 0-5/hpf (0-5) Urine Epithelial Cells Occasional/hpf (NONE-MOD) Urine Crystals None seen (NONE SEEN) Urine Bacteria Moderate/hpf (NONE-FEW) Urine Hyaline Casts None/lpf (NONE) Urine Granular Casts None seen (NONE SEEN) Urine Waxy Casts None seen (NONE SEEN) Urine Red Blood Cell Casts None seen (NONE SEEN) Urine White Blood Cell Casts None seen (NONE SEEN) Urine Mucus None seen (None Seen) Urine Trichomonas None seen (NONE SEEN) Urine Yeast None (NONE SEEN) Urinalysis Comment None Urine Culture Reflexed Indicated Lab Results Interpretation: ua with mod bacteria (clean catch) no sx, will await cx ECG Interpretation Time: 06:35 Interpreted by: ED physician Normal ECG Interpretation: No acute ischemic changes Rhythm / Conduction: Tachycardia (105) Re-Eval/Medical Decision Med Decision/Clinical Course presenting with dyspnea (nl sats), chest heaviness, feels like asthma but minimal wheeze and already completed PO steroid course. Recent surgery and cancer diagnosis, unexplained tach - high risk for PE. PE, STEMI, pneumonia, pneumothorax, pericardial effusion, sepsis all ruled out. Blood cx have been drawn and doubt endocarditis. Most likely remaining dx is continued actue asthma exacerbation. Loud heart murmur noted. Pt has never been told she had a murmur. Will benefit from ECHO as an out patient. Shared this recommendation with her and encouraged out pt follow up Counseled Regarding: Diagnosis, Lab results, Need for follow-up, When/why to return to ED Discharge & Departure Primary Impression: Acute asthma exacerbation Asthma severity: unspecified severity Qualified Code: J45.901 - Unspecified asthma with (acute) exacerbation Additional Impression: Heart murmur Ruled Out: Pulmonary embolism, STEMI (ST elevation myocardial infarction), Pneumonia, Sepsis Disposition: Home Discharge Condition All VS Reviewed: Yes Condition: Stable Additional Instructions: Your CT scan does not show any signs of a blood clot, pneumonia, inflammation or heart problems. Your symptoms are most likely due to asthma exacerbation. I am going to put you on a longer prednisone taper. Continue the inhalers. Please discuss your heart murmur with you doctor. I've given you a dose of steroid via IV, so you don't need to start the taper by mouth until tomorrow. Referrals: Dallin Schaefer (PCP) Scribe Attestation Portion of this note were transcribed by Stephen Rodriguez. I, Dr. Hooper, personally performed the history, physical exam, and medical decision-making: I reviewed and confirmed the accuracy for the information in the transcribed note. Signed by: guerrero Healy, 12/07/16 1100 copies to: Dallin Schaefer Shawna L MD Dec 07, 2016 07:29 STEPHEN RODRIGUEZ Dec 07, 2016 07:32
[2016-12-07] MEDS ORDERED: Ondansetron 2 mg/mL 2 mL Inj ONE (08:00)
[2016-12-07 08:04] LABS: APPEARANCE,URINE CLEAR (CLEAR,HAZY); COLOR,URINE STRAW (YELLOW); OCCULT BLOOD,URINE TRACE (NEGATIVE); UROBILINOGEN,URINE NORMAL (NORMAL)
[2016-12-07] MEDS ORDERED: Ondansetron 2 mg/mL 2 mL Inj IVPUSH PRN (08:55)
[2016-12-07 09:07] VITALS: BP 100/51; PULSE 81; RESP 9; O2SAT 95
--- NOTE | 2016-12-07 09:08 | DRSVH ---
PROCEDURE: CT ANGIO CHEST PULMONARY EMBOLISM ([id number]) INDICATIONS: 40 year-old female with recent diagnosis of breast cancer presenting with dyspnea and ta chycardia. TECHNIQUE: After the administration of intravenous contrast, 2 mm thick sections acquired from the pulmonary api felipe to the posterior costophrenic angles. 3-dimensional maximum intensity projection (MIP) coronal a nd sagittal reformats were then acquired through the thorax. For radiation dose reduction, the follo wing was used: automated exposure control, adjustment of mA and/or kV according to patient size. COMPARISON: [facility], CT, CT KUB, 02/09/2016, 20:14. [facility], CR, XR C HEST 2VW, 09/15/2016, 12:57. FINDINGS: Image quality: Excellent. Pulmonary arteries: Pulmonary arteries are normal in size, and demonstrate no intraluminal filling d efects to suggest central pulmonary embolism. Lungs and pleura: There is dependent atelectasis bilaterally. No acute consolidation. No pleural e ffusions or pneumothorax. Central and peripheral airways are patent. Mediastinum: Heart size is normal, without pericardial effusion. No mediastinal or hilar adenopathy . Thoracic aorta is normal in caliber and enhancement. There is a small to moderate-sized hiatal he rnia with post surgical changes along the visualized stomach. Mild concentric wall thickening is dem onstrated in the distal esophagus. Bones and chest wall: There are multiple surgical clips in the right breast as well as associated sc arring. No axillary or supraclavicular adenopathy. No suspicious bony lesions. Ribs and thoracic s pine appear intact throughout. There are epidural neurostimulator leads partially visualized and the spinal canal. Thyroid gland is partially visualized with no discrete nodules identified. Abdomen: Visualized upper abdomen demonstrates postsurgical changes along the stomach which is parti ally visualized. There is also surgical absence of the gallbladder with mild biliary ductal dilatati on redemonstrated likely related to prior cholecystectomy. IMPRESSION: 1. No evidence of pulmonary embolism. 2. Postsurgical changes in the right breast consistent with partial mastectomy. No lymphadenopathy in the chest by CT criteria. 3. Small to moderate-sized hiatal hernia with concentric wall thickening in the distal esophagus whi ch may reflect reflux esophagitis. Dictated by: Bhupendra Cheng M.D. on 12/07/2016 at 9:00 Approved by: Bhupendra Cheng M.D. on 12/07/2016 at 9:06
[2016-12-07] MEDS ORDERED: PRE20 PO (10:02)
[2016-12-07] MEDS: fentaNYL-PF 50 mCg/mL 2 mL Inj IVPUSH PRN ×2 (10:36→10:37)
[2016-12-07] MEDS: MethylprednisoLONE Sodium Succinate 62.5 mg/mL 2 mL Inj IVPUSH ONE ×2 (10:38→11:00)
[2016-12-07 10:40] VITALS: BP 95/62; PULSE 84; RESP 10; O2SAT 97
[2016-12-07 11:02] VITALS: BP 95/62; PULSE 84; RESP 10; O2SAT 97
[2016-12-20] MEDS ORDERED: DOXE10CA PO (10:52)
== END 2016-12-07 11:08 | disposition home or self-care (01) ==
LOC: SED 04:56
DX: J45.901 Unspecified asthma with (acute) exacerbation (principal); R01.1 Cardiac murmur, unspecified; K21.9 Gastro-esophageal reflux disease without esophagitis; Z87.442 Personal history of urinary calculi; Z98.84 Bariatric surgery status; Z86.39 Personal history of other endocrine, nutritional and metabolic disease; Z85.3 Personal history of malignant neoplasm of breast; Z90.11 Acquired absence of right breast and nipple; Z79.52 Long term (current) use of systemic steroids; Z79.51 Long term (current) use of inhaled steroids; Z88.5 Allergy status to narcotic agent; Z88.8 Allergy status to other drugs, medicaments and biological substances
CPT/HCPCS: 36415; 71275; 80053; 81000; 83605; 84484; 85025; 87040; 87086; 87088; 93005; 96361; 96374; 96375; 99285; J2405; J2930; J7030; J7613; J7620; Q9967

== ENCOUNTER 2016-12-12 07:00 | Day surgery (SDC) | payer OTHER ==
--- NOTE | 2016-12-08 14:56 | PCM.ANEPRE ---
Anesthesia Pre-Op Review Reason for Review: asthma, murmre Anesthesia Recommendations: Proceed with Procedure Additional Comments recent asthma exacerbation on steroids murmer heard in ER, Echo F/U recommended. Proceed with portacath under MAC after evaluation Ricki Phan MD Dec 08, 2016 14:56
[~2016-12-12] VITALS: Ht 162.6 cm; Wt 92.0 kg
[2016-12-12] VITALS (7 sets, daily range): BP systolic 96–117; BP diastolic 48–73; PULSE 63–100; RESP 14–18; O2SAT 95–99
[~2016-12-12 07:00] MED LIST changes: +ARIP20TA8 PO; +CETI10CA PO; +CeFAZolin Inj 2 GM in IV Premix 1 EACH IV ONE; +DOCU-41 PO; +GUAI400T57 PO; +IBUP-1827 PO; -LEVE10006 PO; +LEVE500T3 PO; +Lactated Ringer's 1,000 ML IV SCH; +ONDA-54 PO; -ONDA8TAB10 PO; +PRE10 PO; +PRE20 PO
[2016-12-12] MEDS ORDERED: Dexamethasone 4 mg/mL Inj ONE (07:01)
[2016-12-12] MEDS ORDERED: Ondansetron 2 mg/mL 2 mL Inj ONE (07:01)
[2016-12-12] MEDS ORDERED: Propofol 10,000 mCg/mL 20 mL Inj ONE (07:01)
[2016-12-12] MEDS ORDERED: CeFAZolin Inj 2 gm / 50mL D5W IV ONE (07:08)
--- NOTE | 2016-12-12 09:59 | PCM.HPANE ---
Patient Data Surgeon Admitting Provider: Attending Provider:Casimiro Lewis MD Primary Care Physician:Dallin Schaefer Other Provider:Edenilson Ferrara Anesthesia Reason for Visit Right Breast Cancer Ht/WT & BMI Height (Feet): 5 Height (Inches): 4.00 Weight (Kilograms): 92.0 Body Mass Index 34.00 Allergies Coded Allergies: hydromorphone (Verified Allergy, Unknown, MAKES HER SICK, 12/07/16) meperidine (Verified Allergy, Unknown, IV - RUINS IV SITES, 12/07/16) metoclopramide (Verified Allergy, Unknown, MAKES HER FEEL LIKE SKIN CRAWLS BAD, 12/07/16) prochlorperazine (Verified Allergy, Unknown, 12/07/16) prochlorperazine edisylate (Verified Allergy, Unknown, 03/01/16) prochlorperazine maleate (Verified Allergy, Unknown, 03/01/16) promethazine (Verified Allergy, Unknown, 03/01/16) Uncoded Allergies: FLU VACCINE (Allergy, Unknown, 02/05/14) Past Anesthesia History Anesthesia History: Denies:: Abnormal Airway, Anesthesia Reactions (nausea), Difficult Intubation, Fam Anesthesia Reaction, Fam Malignant Hypertherm, Malignant Hyperthermia Diabetes History Hx Diabetes?: No MRSA MRSA: No Medications Home Meds Incl Beta Nikolas: No Active Scripts Prednisone (PredniSONE)20 Mg Prjwni66 Mg PO DAILY #10 TABLET 12/08 60mg, 12/09 40mg, 12/10,27 20mg 12/12,29 10mg then stop Prov:Liliane Hooper MD 12/07/16 oxyCODONE-Acetaminophen 5-325 mg 1 Each Tablet1 Tab PO Q4H PRN For Pain #20 TABLET Prov:Mandeep Pickard MD 03/02/16 Reported Medications Prednisone (PredniSONE)10 Mg Qdjdam25 Mg PO DAILY Ref 0 3 tabs x2 days, 2 tabs x2 days, then 1 tab x2 days 12/07/16 Aripiprazole (Abilify)20 Mg Rtoayx91 Mg PO DAILY Ref 0 12/07/16 Cetirizine HCl (Zyrtec)10 Mg Aiwhqmq89 Mg PO HS #30 CAPSULE Ref 0 12/07/16 Levetiracetam 500 Mg Mmrqgd029 Mg PO BID 12/07/16 Docusate Sodium (Colace)100 Mg Rathmec121 Mg PO DAILY PRN For Constipation Ref 0 12/07/16 Ibuprofen 600 Mg Gtxwop177 Mg PO TID PRN For Pain Ref 0 12/07/16 Guaifenesin 400 Mg Yekstt201 Mg PO BID 30 Days 12/07/16 Ondansetron 8 Mg Tablet8 Mg PO TID 12/07/16 Baclofen 10 Mg Ubswte34 Mg PO QID #112 10/31/16 Oxycodone ER (Oxycontin)30 Mg Tab.er.12h30 Mg PO BID #60 10/31/16 Levothyroxine 112 Mcg Mmfhby340 Mcg PO DAILY #30 10/31/16 Albuterol HFA (Proair HFA)8.5 Gm Hfa.aer.ad2 Puffs INHALATION Q4H #1 INHALER 10/31/16 Duloxetine (Cymbalta)60 Mg Capsule.dr60 Mg PO DAILY Ref 0 06/08/15 Esomeprazole Magnesium (Nexium)40 Mg Capsule.dr40 Mg PO DAILY 30 Days Ref 0 03/06/15 Simvastatin 40 Mg Ojyrgg84 Mg PO HS 30 Days Ref 0 03/06/15 Pregabalin (Lyrica)150 Mg Xtapjyp582 Mg PO TID Ref 0 03/06/15 Multivitamin (Multi Vitamin Daily)1 Each Tablet1 Each PO DAILY 02/05/14 Sumatriptan Succinate 100 Mg Gzaulw847 Mg PO PRN PRN headache Please verify dose/frequency, patient states 250mg QID. Maximum daily dosage is 200mg of sumatriptan succinate. 02/05/14 Discontinued Reported Medications Levetiracetam 1,000 Mg Tablet1,000 Mg PO BID #60 10/31/16 Discontinued Scripts Ondansetron ODT 8 Mg Tab.rapdis8 Mg PO QID PRN For Nausea #20 TABLET Prov:Mandeep Pickard MD 03/02/16 History History of ENT Problems?: No HEENT History: Positive for:: Sinus Problem (sinus allergies) Denies:: Abnormal Airway Cataracts Difficult Intubation Dysphagia Hearing Problem Hx of Heart Problems?: No Cardiovascular History: Positive for:: Chest Pain (cardiology seen here in ER , everything "fine") Heart Murmur (loud murmur heard on ED visit 12/07/16) Denies:: AICD Atrial Fibrillation Congestive Heart Failure Hypertension Pacemaker Valvular Heart Disease Hx of Respiratory Problem?: Yes Respiratory History: Positive for:: Asthma (exacerbation 12/07- currently on prednisone taper pack) Use of C-PAP Machine Use of Inhalers / NEBS Denies:: COPD Cough Hemoptysis Pneumonia Tuberculosis Hx Neurologic Problems?: No Neurological History: Positive for:: Headaches (migraine h/aches) Seizures (mild colonic) Denies:: CVA Dementia Hx of GI Problems?: No Gastrointestinal History: Positive for:: Gall Bladder Disease (removed) Gastroesphageal Reflux Hiatal Hernia (gastric sleeve procedure) Denies:: Cirrhosis Diverticulitis Rectal Bleeding Hx of Problems?: No Genitourinary History: Positive for:: Kidney Stones Urinary Tract Infection Female Hx: Positive for:: Problems with Breasts? (right brest cancer- recent rt partial mastectomy,ax node) Denies:: Currently Endometriosis Pelvic Inflammatory Skin History: Denies:: History Skin Disorders? Hx Musculoskeletal Problems?: Yes Musculoskeletal History: Positive for:: Back Injury (spinal cord stim in place ) Fibromyalgia (chronic pain) Musculoskeletal Trauma (past hx of) Osteoarthritis Denies:: Joint Replacement Hx of Psycho/Social Problems?: Yes Psycho Social History: Positive for:: Anxiety Hx Depression Suicide Attempt (at age 18) Denies:: Bipolar Disorder Hx Surgeries?: Yes (mj, breast reduction, right partial mastectomy, gastric sleeve.) Hx Any Other Health Problems?: Yes Other History: Positive for:: Cancer (right breast) Hospitalization Thyroid Disease (hypo) Denies:: Endocrine Disease History Blood Transfusions: Denies:: Blood Transfusions Hx Diabetes: No Hx Alcohol Use: NoHx Substance Use: No Smoking Status: Never Smoker Have You Smoked inLast 12 mo: No Stop/Bang Treated for Sleep Apnea?: Yes Do You Have a CPAP Machine?: Yes P-Blood Pressure: treated: No B- Body Mass Index > 35 kg/m2: No A- Age over 50: No N- Neck Large Circumference: No G- Gender Male: No MILLY Risk Assessment: High Risk, =/>3 Yes Risk Assessment Category Category 1A: Patient has history of documented sleep apnea, and HAS NOT received any narcotic, sedative or anesthesia administration during this stay. Category 1B: Patient has history of documented sleep apnea, and HAS received any narcotic , sedative or anesthesia administration during this stay Category 2: Patient has SUSPECTED Obstructive Sleep Apnea, and HAS received any narcotic , sedative or anesthesia administration during this stay. Category 3: Patient has SUSPECTED Obstructive Sleep Apnea and HAS NOT received narcotic, sedative or anesthesia administration during this stay. Category 4: Outpatient in Procedural Areas with known sleep apnea or who screen positive for High Risk via the STOP/BANG questionnaire. Exam Exam Vital Signs Vital Signs Date Time Temp Pulse Resp B/P Pulse Ox O2 Delivery O2 Flow Rate FiO2 12/12/16 07:29 CPAP/BIPAP 12/12/16 07:28 36.3 78 16 117/73 96 Room Air General Appearance: Oriented X3 HEENT/AIRWAY: MP 2 Lungs: Normal Air Movement Heart: Regular Rate/Rhythm Plan Impression Patient chart reviewed, patient interviewed and anesthestic plan with risks, benefits, and alternatives discussed, and informed consent obtained. NPO Status: 12/11 at 2200 ASA Physical Status: ASA2 Mod Systemic Disease Anesthetic Plan: GA Bene/Risks/Altern/Consents: Yes HP Complete Prior to Induction: Yes Senthil Higginbotham MD Dec 12, 2016 09:59
[2016-12-12] MEDS ORDERED: Bupivacaine-MPF 0.5% 30 mL Inj INJ ONE (10:13)
[2016-12-12] MEDS ORDERED: HepLOK Flush 100 unit/mL 5 mL Inj IVFLUSH ONE (10:13)
[2016-12-12] MEDS ORDERED: Lactated Ringer's 1,000 ML IV SCH (10:28)
[2016-12-12] MEDS ORDERED: Lactated Ringer's 500 ML IV PRN (10:28)
[2016-12-12] MEDS ORDERED: Labetalol 5 mg/mL 4 mL Inj IV PRN (10:30)
[2016-12-12] MEDS ORDERED: Dexamethasone 4 mg/mL Inj IVPUSH PRN (10:30)
[2016-12-12] MEDS ORDERED: Phenylephrine 10,000 mCg/mL Inj IVPUSH PRN (10:30)
[2016-12-12] MEDS ORDERED: Ondansetron 2 mg/mL 2 mL Inj IVPUSH PRN (10:30)
[2016-12-12] MEDS ORDERED: EPHEDrine Sulfate 50 mg/mL Inj IVPUSH PRN (10:30)
[2016-12-12] MEDS: fentaNYL-PF 50 mCg/mL 2 mL Inj IVPUSH PRN ×2 (11:42→11:48)
--- NOTE | 2016-12-12 12:16 | OP ---
[address] [address] OPERATIVE REPORT PATIENT: MATTHEW PALOMARES : 1975 MR#: [id number] ADMIT: 12/12/2016 JOB ID: [id number] DATE OF SURGERY: 12/12/2016 PREOPERATIVE DIAGNOSIS(ES): Right breast cancer. POSTOPERATIVE DIAGNOSIS(ES): Right breast cancer. PROCEDURE PERFORMED: Left subclavian tunneled central venous catheter placement with subcutaneous port, intraoperative fluoroscopy. SURGEON: Casimiro Lewis MD KNOTTER HAND: None. 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 Scott Weber. She had wire localized right partial mastectomy with right axillary sentinel lymph node biopsy by Dr. Broderick Garrett on October 31, 2016. After discussing the risks, benefits, and alternatives, she is here today for a central venous catheter placement with port. PROCEDURE DETAILS: She was placed in a supine position and underwent smooth induction of general anesthesia. The neck and chest were prepped and draped in the usual sterile fashion. Surgical time-out was undertaken using safety checklist, and all were in agreement. She was placed in steep Trendelenburg position, and the left subclavian vein was accessed using Seldinger technique. Wire placement was confirmed fluoroscopically, and the required length of the catheter was measured based on the wire position. I then made a subcutaneous pocket for the port and then attached the port to the catheter and cut the catheter to the right upper quadrant. I then dilated the wire with introducer dilator and then threaded the catheter through the introducer sheath and removed the tear away sheath. After confirming good placement, the catheter also was found to be flushing and aspirating well. The sutures anchoring the port with PDS were tied down, and the skin was reapproximated with two layers of 4-0 Monocryl. Dermabond was applied as a dressing. Patient was recovered from anesthesia and was taken to the recovery room in stable condition.
--- NOTE | 2016-12-12 13:07 | DRSVH ---
PROCEDURE: X-RAY CHEST ONE VIEW ([id number]) INDICATIONS: PORT PLACEMENT TECHNIQUE: One view of the chest was acquired. COMPARISON: [facility], , XR CHEST 2VW, 09/15/2016, 12:57. FINDINGS: Surgical changes and devices: Left Port-A-Cath is present with distal tip overlying the distal SVC/ri ght atrial junction. Lungs and pleura: No pleural effusions or pneumothorax. Mild increased pulmonary vascularity. Mediastinum: Mediastinal contours appear normal. Heart size is enlarged. Bones and chest wall: No suspicious bony lesions. Overlying soft tissues appear unremarkable. IMPRESSION: Port placement as above. Dictated by: Andie Meier M.D. on 12/12/2016 at 13:05 Approved by: Andie Meier M.D. on 12/12/2016 at 13:06
--- NOTE | 2016-12-12 15:04 | PCM.ANEP2 ---
Post Anesthesia Evaluation ASA/CMS Post Anesthesia VS in Patient's Normal Range?: Yes Resp Stable; Airway Patent?: Yes CV Function & Hydration Stable: Yes Mental Status Recovered?: Yes Pain control Satisfactory?: Yes N/V Control Satisfactory?: Yes Snethil Higginbotham MD Dec 12, 2016 15:04
--- NOTE | 2016-12-12 15:04 | PCM.ANEP1 ---
Post Anesthesia Phase 1 PACU Phase 1 Assessment Vital Signs Vital Signs Date Time Temp Pulse Resp B/P Pulse Ox O2 Delivery O2 Flow Rate FiO2 12/12/16 12:45 73 18 96/50 95 Room Air 12/12/16 12:01 63 18 101/48 97 Room Air 12/12/16 11:30 100 15 100/62 95 12/12/16 11:25 66 17 100/62 95 Room Air 12/12/16 11:20 69 14 96/53 99 Simple Mask 10 12/12/16 11:15 36.7 65 15 103/49 99 Simple Mask 10 12/12/16 07:29 CPAP/BIPAP 12/12/16 07:28 36.3 78 16 117/73 96 Room Air Anesthetic Administered: GA Level of Alertness: Awake, talking Pain: No Nausea or Vomiting: No Oxygen Delivery: Room Air Lungs: Normal Air Movement Senthil Higginbotham MD Dec 12, 2016 15:04
[2016-12-20] MEDS ORDERED: DOXE10CA PO (10:52)
== END 2016-12-12 23:59 | disposition home or self-care (01) ==
LOC: SAS 07:00
PROVIDERS: ATTEND Student in an Organized Health Care Education/Training Program
DX: C50.411 Malignant neoplasm of upper-outer quadrant of right female breast (principal); M79.7 Fibromyalgia; G89.29 Other chronic pain; F41.9 Anxiety disorder, unspecified; F32.9 Major depressive disorder, single episode, unspecified; E03.9 Hypothyroidism, unspecified; J45.909 Unspecified asthma, uncomplicated; K21.9 Gastro-esophageal reflux disease without esophagitis; E78.5 Hyperlipidemia, unspecified; E66.9 Obesity, unspecified; Z68.32 Body mass index [BMI] 32.0-32.9, adult; Z87.442 Personal history of urinary calculi
CPT/HCPCS: 36561; 71010; 77001; C1788; C1894; J0690; J1100; J1642; J2405; J3010; J7120

== ENCOUNTER 2016-12-27 22:38 | Observation (INO) | payer OTHER ==
[~2016-12-27] VITALS: Ht 162.6 cm; Wt 88.2 kg
[~2016-12-27 22:38] MED LIST changes: -CeFAZolin Inj 2 GM in IV Premix 1 EACH IV ONE; +DOXE10CA PO; -Lactated Ringer's 1,000 ML IV SCH
--- NOTE | 2016-12-27 23:08 | ED.REPORT ---
HPI-NVD Date of Service Dec 27, 2016 ED Provider: Denisha Irvin MD Patient is a 41 year old female with a history of resected stage Ia HER2- negative breast cancer on adjuvant chemotherapy, fibromyalgia with chronic pain , generalized anxiety disorder, depression, and hypothyroidism who presents to the ED via EMS with nausea, vomiting, and diarrhea since starting chemotherapy 1 week ago, worsening since starting a Zarxio this afternoon. Patient states that she has generally felt unwell since chemotherapy, with malaise and diffuse aches. She has a history of fibromyalgia, with her current pain above what she typically experiences. Patient subsequently developed nausea, vomiting, and diarrhea. Patient was seen by her oncologist today due to her ongoing symptoms. Patient was found to have a WBC of 800 today, started on Zarxio. Patient reports feeling worse since starting this medication. Her oncologist is Dr. Weber, who sent the patient to the ED tonight with the intent of hospital admission. Patient denies a fever, shortness of breath, chest pain or cough. Nursing Notes Stated Complaint: DIZZINESS, ON CHEMO Chief Complaint: General Complaint Nursing Notes Reviewed: Yes Allergies: Coded Allergies: Cantaloupe (Verified Allergy, Mild, 12/28/16) Makes ears itch Influenza Virus Vaccines (Verified Allergy, Unknown, 12/28/16) hydromorphone (Verified Allergy, Unknown, MAKES HER SICK, 12/27/16) meperidine (Verified Allergy, Unknown, IV - RUINS IV SITES, 12/27/16) metoclopramide (Verified Allergy, Unknown, MAKES HER FEEL LIKE SKIN CRAWLS BAD, 12/27/16) prochlorperazine (Verified Allergy, Unknown, 12/27/16) prochlorperazine edisylate (Verified Allergy, Unknown, 12/27/16) prochlorperazine maleate (Verified Allergy, Unknown, 12/27/16) promethazine (Verified Allergy, Unknown, 12/27/16) Uncoded Allergies: Honey Dew Melon (Allergy, Mild, 12/28/16) Makes ears itch Scheduled Albuterol HFA (Proair HFA) 8.5 Gm Hfa.aer.ad 2 PUFFS INHALATION Q4H Baclofen (Baclofen) 10 Mg Tablet 10 MG PO QID Cetirizine HCl (Zyrtec) 10 Mg Capsule 10 MG PO HS Doxepin (Doxepin) 10 Mg Capsule 10 MG PO HS Duloxetine (Cymbalta) 60 Mg Capsule.dr 60 MG PO DAILY Esomeprazole Magnesium (Nexium) 40 Mg Capsule.dr 40 MG PO DAILY Levetiracetam (Levetiracetam) 500 Mg Tablet 500 MG PO BID Levothyroxine (Levothyroxine) 112 Mcg Tablet 112 MCG PO DAILY Ondansetron (Ondansetron) 8 Mg Tablet 8 MG PO TID Oxycodone ER (Oxycontin) 30 Mg Tab.er.12h 30 MG PO BID Pregabalin (Lyrica) 150 Mg Capsule 150 MG PO TID Simvastatin (Simvastatin) 40 Mg Tablet 40 MG PO HS Scheduled PRN Docusate Sodium (Colace) 100 Mg Capsule 200 MG PO DAILY PRN PRN For Constipation Ibuprofen (Ibuprofen) 600 Mg Tablet 600 MG PO TID PRN PRN For Pain Sumatriptan Succinate (Sumatriptan Succinate) 100 Mg Tablet 100 MG PO PRN PRN PRN headache Please verify dose/frequency, patient states 250mg QID. Maximum daily dosage is 200mg of sumatriptan succinate. 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, on chemotherapy Fibromyalgia Sleep apnea IBS Hypothyroid Kidney stones hiatal hernia recent pyelonephritis Reports: Asthma, GERD Reports: Depression, Migraines, Thyroid disease, Urinary tract infection Past Surgical History Lithotripsy Breast reduction 2007 spinal chord stimulator 04/2015 gastric sleeve 2014 Reports: Cholecystectomy Family History A-fib Smoking History Never Smoker Social History Alcohol Use: Denies alcohol use Drug Use: Denies drug use Other Social History: Local resident Ambulatory Status Independent Review of Systems Review of Systems Note: + decreased PO intake Constitutional: Reports: Malaise, Denies: Fever GI: Reports: Diarrhea, Nausea, Vomiting Complete sys rev & neg: except as marked. Respiratory: Denies: Non-productive cough, Shortness of breath Cardiovascular: Denies: Chest pain Musculoskeletal: Reports: Extremity pain, Myalgia Physical Exam Initial Vital Signs Vital Signs (First) Date Time Temp Pulse Resp B/P Pulse Ox O2 Delivery O2 Flow Rate FiO2 12/27/16 23:26 36.9 100 12 112/69 96 Room Air Initial VS: Reviewed Head / Eyes: Atraumatic, Normocephalic, PERRL ENT: Conjunctiva normal, No scleral icterus Neck: Supple, Full range of motion Extremities: Vascular intact, Neuro intact, No swelling Skin: Warm, Dry, No cyanosis Neurologic: Alert, Oriented, Nonfocal Psychiatric: Mood/affect normal, Behavior normal, Normal thought content General/Constitutional: Awake, Alert, No acute distress Abdomen: Soft, Non-tender, No guarding, No rebound Respiratory / Chest: Breath sounds NL, Breath sounds = bilat, No respiratory distress, No rales, No rhonchi, No wheezing port left upper chest, no surrounding erythema or swelling Cardiovascular: Regular rhythm, Heart sounds NL, No murmurs Heart Rate / Rhythm: Positive: Tachycardia Interpretation & Diagnostics ECG Interpretation ECG Interpretation: Sinus tachycardia, rate [address] elevations Q waves in lead 3 T wave inverions in AVL, lead 1, lead 3 Time: 23:17 Interpreted by: ED physician Normal ECG Interpretation: No change from prior ECGs X-Ray Chest Interpretation Chest Xray Interpretation: Impression: Port in the left upper chest. No acute cardiopulmonary abnormality. View: AP & lat Interpretation / Wet Read by: Wet read ED physician X-Ray Abdominal Interpretation Impression: Air fluid levels, no evidnece of obstruction. Mostly likely constipation. Interpretation / Wet Read by: Wet read ED physician Re-Eval/Medical Decision Med Decision/Clinical Course 41-year-old female with past medical history of chronic pain, fibromyalgia, with recent diagnosis of breast cancer status post her first chemotherapy approximately 1 week ago here with intractable nausea and vomiting. Differential diagnosis includes but is not limited to nausea and vomiting from chemotherapy versus neutropenia versus pneumonia versus anemia. Labs are remarkable for neutropenia with ANC of 160. CMP from earlier today was unremarkable. Patient was given fluids in the emergency department, and per request of her oncologist, was admitted to the hospitalist service. Her pain was addressed while in the emergency department. She is aware and amenable to admission at this time. Source of Hx: Old records Re-Evaluation/Progress : Time of Eval: 00:59 Patient Status: Condition improved Re-Evaluation/Progress Note: Rechecked the patient. Discussed her x-ray results. Patient was informed of the plan for hospital admission. Patient understands and agrees with this plan. All questions were addressed. Consultation : Referral / Consult Name: Alba Vaughn MD Consulted With: Hospitalist Call Returned at: 00:55 Insurance Account Executive: Will see patient, Agrees with eval, Agrees with plan, Accepts admit Note: Spoke with Dr Vaughn, hospitalist, who agrees to accept admit. Counseled Regarding: Diagnosis, Lab results, Need for admission Discharge & Departure Impression: Primary Impression: Neutropenia Neutropenia type: secondary to cancer chemotherapy Qualified Code: D70.1 - Agranulocytosis secondary to cancer chemotherapy Additional Impressions: Chemotherapy adverse reaction Encounter type: initial encounter Qualified Code: T45.1X5A - Adverse effect of antineoplastic and immunosuppressive drugs, initial encounter Intractable nausea and vomiting Vomiting type: unspecified Qualified Code: R11.2 - Nausea with vomiting, unspecified Disposition: ADMITTED TO HOSPITAL Discharge Condition All VS Reviewed: Yes Condition: Stable Referrals: Dallin Schaefer (PCP) Scott Weber MD Attestation Portions of this note were transcribed by Faustina Petit. I, Dr. Irvin personally performed the history, physical exam and medical decision-making; I reviewed and confirmed the accuracy of the information in the transcribed note. Signed by: Haroon Ann, 12/28/2016 0056 copies to: Scott Weber MD; Dallin Schaefer Rebecca A MD Dec 27, 2016 23:08 Faustina Petit Dec 27, 2016 23:16
[2016-12-27 23:26] VITALS: BP 112/69; PULSE 100; RESP 12; O2SAT 96
[2016-12-27] MEDS ORDERED: 0.9% Sodium Chloride 1,000 ML IV ONE (23:50)
[2016-12-27] MEDS ORDERED: oxyCODONE ER 10 mg ER12 Tablet PO ONE (23:50)
[2016-12-28] MEDS ORDERED: Ondansetron 2 mg/mL 2 mL Inj IVPUSH ONE
[2016-12-28] MEDS ORDERED: Alum-Mag Hydrox-Simeth 30 mL Suspension PO PRN (01:00)
[2016-12-28 01:58] LABS: APPEARANCE,URINE SLIGHTLY CLOUDY (CLEAR,HAZY); COLOR,URINE DARK YELLOW (YELLOW); OCCULT BLOOD,URINE MODERATE (NEGATIVE); PH,URINE 5.5 (5.0-8.0); UROBILINOGEN,URINE NORMAL (NORMAL)
[2016-12-28] MEDS ORDERED: oxyCODONE ER 10 mg ER12 Tablet PO SCH ×2 (02:00→09:08)
[2016-12-28 02:28] VITALS: BP 105/64; PULSE 90; RESP 16; O2SAT 96
[2016-12-28 02:32] VITALS: BP 117/65; PULSE 88; RESP 17; O2SAT 98
--- NOTE | 2016-12-28 02:41 | NUR ---
Admit Note Pt. arrived on floor at 0217. Alert and oriented x3. Pt. has had no emesis since arrival. Will continue to monitor.
[2016-12-28] MEDS ORDERED: OXYC10TA8 PO (02:53)
[2016-12-28 04:26] VITALS: BP 94/60; PULSE 81; RESP 16; O2SAT 94
--- NOTE | 2016-12-28 04:41 | PCM.HPMED ---
Subjective Date of Service Dec 28, 2016 Primary Provider: Admitting Physician: Alba Vaughn MD Primary Care Physician: Dallin Schaefer Attending Physician: Alba Vaughn MD Admit Status: From the Emergency Department Chief Complaint: N/V/D Neutropenia History of Present Illness: Patient is a pleasant 41-year-old woman with history of resected stage IA HER-2 negative breast cancer currently on adjuvant chemotherapy, 1 dose, fibromyalgia with chronic pain, generalized anxiety disorder, depression, hypothyroidism, presented to the emergency department via EMS with nausea, vomiting, diarrhea which is been present for 1 week since starting the chemotherapy. Nausea vomiting diarrhea worsened this afternoon after starting Zarxio. She was seen by her oncologist, Dr. Weber, today she was found to have a white blood cell count of 800, and thus started on Zarxio. She denies any blood in her stool, or vomitus. No dysuria, no fevers, no chills, no new weakness, no rashes, no shortness of breath. She does endorse having lightheadedness and dizziness for the last day and half particularly after giving herself medication, she has abdominal pain which she describes as cramping that has been present and worsening over the last week since receiving chemotherapy. In the emergency department her heart rate was found to be 100 beats per minute , respirations 12 per minute, 96% on room air, blood pressure 112/69 was afebrile at 36.9C No hematologic or chemistry studies were performed by the emergency department. EKG sinus tachycardia, heart rate 100, MS interval 164, axis is normal, QTC 454. No signs of acute infarct or ischemia. Chest x-ray did not demonstrate any foci of infection, abdominal series showed distended bowel loops representing constipation. Review of Systems: Operations of ROS negative unless specified in history of present illness Allergies Coded Allergies: Cantaloupe (Verified Allergy, Mild, 12/28/16) Makes ears itch Influenza Virus Vaccines (Verified Allergy, Unknown, 12/28/16) hydromorphone (Verified Allergy, Unknown, MAKES HER SICK, 12/27/16) meperidine (Verified Allergy, Unknown, IV - RUINS IV SITES, 12/27/16) metoclopramide (Verified Allergy, Unknown, MAKES HER FEEL LIKE SKIN CRAWLS BAD, 12/27/16) prochlorperazine (Verified Allergy, Unknown, 12/27/16) prochlorperazine edisylate (Verified Allergy, Unknown, 12/27/16) prochlorperazine maleate (Verified Allergy, Unknown, 12/27/16) promethazine (Verified Allergy, Unknown, 12/27/16) Uncoded Allergies: Honey Dew Melon (Allergy, Mild, 12/28/16) Makes ears itch Home Medications Albuterol HFA (Proair HFA) 8.5 Gm Hfa.aer.ad 2 PUFFS INHALATION Q4H Aripiprazole (Abilify) 20 Mg Tablet 20 MG PO DAILY Baclofen (Baclofen) 10 Mg Tablet 10 MG PO QID Cetirizine HCl (Zyrtec) 10 Mg Capsule 10 MG PO HS Doxepin (Doxepin) 10 Mg Capsule 10 MG PO HS Duloxetine (Cymbalta) 60 Mg Capsule.dr 60 MG PO DAILY Esomeprazole Magnesium (Nexium) 40 Mg Capsule.dr 40 MG PO DAILY Guaifenesin (Guaifenesin) 400 Mg Tablet 400 MG PO BID Levetiracetam (Levetiracetam) 500 Mg Tablet 500 MG PO BID Levothyroxine (Levothyroxine) 112 Mcg Tablet 112 MCG PO DAILY Multivitamin (Multi Vitamin Daily) 1 Each Tablet 1 EACH PO DAILY Ondansetron (Ondansetron) 8 Mg Tablet 8 MG PO TID Oxycodone ER (Oxycontin) 30 Mg Tab.er.12h 30 MG PO BID Prednisone (PredniSONE) 10 Mg Tablet 10 MG PO DAILY 3 tabs x2 days, 2 tabs x2 days, then 1 tab x2 days Prednisone (PredniSONE) 20 Mg Tablet 20 MG PO DAILY 12/08 60mg, 12/09 40mg, 2,27 20mg 2,29 10mg then stop Pregabalin (Lyrica) 150 Mg Capsule 150 MG PO TID Simvastatin (Simvastatin) 40 Mg Tablet 40 MG PO HS Scheduled PRN Docusate Sodium (Colace) 100 Mg Capsule 200 MG PO DAILY PRN PRN For Constipation Ibuprofen (Ibuprofen) 600 Mg Tablet 600 MG PO TID PRN PRN For Pain Sumatriptan Succinate (Sumatriptan Succinate) 100 Mg Tablet 100 MG PO PRN PRN PRN headache Please verify dose/frequency, patient states 250mg QID. Maximum daily dosage is 200mg of sumatriptan succinate. 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, on chemotherapy Fibromyalgia Sleep apnea IBS Hypothyroid Kidney stones hiatal hernia recent pyelonephritis Reports: Asthma, GERD Reports: Depression, Migraines, Thyroid disease, Urinary tract infection Surgical History Lithotripsy Breast reduction 2007 spinal chord stimulator 04/2015 gastric sleeve 2014 Reports: Cholecystectomy Family History Father hyperthyroidism Mother hypothyroidism, otherwise limited knowledge of medical history of family Social History Hx Alcohol Use: No Hx Substance Use: No Hx Tobacco Use: No Smoking Status: Never Smoker Exam Vital Signs Vital Sign - Last Date Time Temp Pulse Resp B/P Pulse Ox O2 Delivery O2 Flow Rate FiO2 12/28/16 04:26 37.0 81 16 94/60 94 Room Air Exam General: Laying in bed, no apparent distress. A surgical mask on her face HEENT: Normocephalic, atraumatic, EOMI grossly, mucous membranes moist, neck is supple, no lymphadenopathy Cardiovascular: Regular rate and rhythm, no clicks murmurs rubs, peripheral pulses 2/4 equal bilaterally -Port-A-Cath in place Pulmonary: Clear to auscultation bilaterally, no W/R/R. Abdominal: Soft to palpation, bowel sounds present 4, no hepatosplenomegaly. Negative rebound. Mild diffusely tender Extremities: No edema appreciated. No tenderness, asymmetry. Neuro: Neurologically grossly intact, strength is equal bilaterally upper and lower extremities. MSK: Able to move extremities on their own volition, strength 5 out of 5 equal bilaterally to upper and lower extremities. Lab and Diagnostics Labs Urinalysis: 5.5, specific gravity 1.025, trace ketones, moderate occult blood, negative nitrites, negative leukocyte esterase, 3-5 RBCs, 0-5 WBCs, many epithelial cells Microbiology Clean-catch urine is pending X-Rays, CTs and MRIs X-Ray Chest Interpretation Chest Xray Interpretation: Impression: Port in the left upper chest. No acute cardiopulmonary abnormality. View: AP & lat Interpretation / Wet Read by: Wet read ED physician X-Ray Abdominal Interpretation Impression: Air fluid levels, no evidnece of obstruction. Mostly likely constipation. 12-lead ECG See history of present illness Assessment & Plan 41-year-old woman status post partial mastectomy for stage IA HER-2 negative breast cancer currently receiving adjuvant chemotherapy, chronic pain from fibromyalgia, generalized anxiety, hypothyroid presents 1 week with nausea, vomiting, diarrhea, and found to be neutropenic at 800. #1 acute moderate neutropenia, present on admission, evaluation treatment ongoing Attributed to chemotherapy Patient reportedly had a white blood cell count 800 when evaluated by Continues Zarxio daily -the dose is not then updated on the patient's medication reconciliation, requesting the correct dose to be Continued Neutropenic precautions Recheck CBC with differential in the a.m. #2 nausea vomiting diarrhea, present on admission, ongoing Attributed to chemotherapy and upset from multiple medications. Attributing patient's tachycardia on presentation to depleted volume status Due to numerous allergies, antinausea medication and Zofran remains the best option. Consider Decadron if refractory to Zofran QTC was optimal, 4-8 milligrams IV Zosyn every 4 hours IV hydration normal saline 100 mL per hour. Recheck CMP in the morning #3 breast cancer, status post resection, ongoing chemotherapy Dr. Weber is aware of patient's admission Continue with all outpatient therapies, and consider contacting Dr. Weber if any complications. #4: Medication reconciliation to be performed. Chronic stable Asthma -Albuterol inhaler as needed Fibromyalgia/anxiety/depression -Continue duloxetine, Lyrica, baclofen, doxepin GERD -Protonix twice a day as an inpatient. Consider IV if unable to tolerate oral. Hypothyroidism -Levothyroxine Hyperlipidemia -Simvastatin Migraine headaches -Sumatriptan when necessary VTE Prophylaxis with SCD GI prophylaxis: PPI Pain management: Oxycodone, her outpatient record. Medication reconciliation to be performed, once this is done continue home/outpatient pain management. Please note CODE STATUS, patient is no compressions, no defibrillation, however stated she is okay with intubation if no cardiac arrest. Pain Evaluation: Pain not Controlled GI Prophylaxis: Proton Pump Inhibitor VTE Prophylaxis: SCDs VTE Mechanical Devices: Intermittant Pneumatic CD Resuscitation Status: Limited Interventions (no chest compressions, no defibrillation. Intubation okay if no cardiac arrest.) Attending Statement Pt seen and examined by myself and agree with above plan. Sridhar Byers DO Dec 28, 2016 04:41 Alba Vaughn MD Dec 28, 2016 06:08
[2016-12-28] MEDS: 0.9% Sodium Chloride 1,000 ML IV SCH ×3 (05:16→19:54)
[2016-12-28] MEDS ORDERED: FILG480S2 IJ (05:25)
[2016-12-28] MEDS ORDERED: cefTRIAXone Inj 2,000 MG in Dextrose 5% Minibag Plus 50 ML IV ONE (07:20)
[2016-12-28] MEDS: Ondansetron 2 mg/mL 2 mL Inj IVPUSH PRN ×3 (08:27→18:08)
[2016-12-28] MEDS: Pantoprazole 40 mg ER24 Tablet PO SCH ×2 (08:29→18:05)
[2016-12-28] MEDS: oxyCODONE ER 10 MG, oxyCODONE ER 20 MG PO SCH ×4 (08:29→20:37)
[2016-12-28] MEDS ORDERED: oxyCODONE ER 20 mg ER12 Tablet PO SCH (08:30)
[2016-12-28] MEDS ORDERED: Albuterol 2.5 mg/3 mL Inhalation Solution NEB PRN (09:03)
--- NOTE | 2016-12-28 09:51 | DRSVH ---
PROCEDURE: X-RAY CHEST, TWO VIEWS ([id number]) INDICATIONS: cough TECHNIQUE: 2 views of the chest were acquired. COMPARISON: [facility], CR, XR CHEST 1VW, 12/12/2016, 11:18. [facility], CR , XR CHEST 2VW, 09/15/2016, 12:57. FINDINGS: Surgical changes and devices: Right breast surgical clips, left chest Port-A-Cath and neural stimulat or post generator as well as multiple catheters. Lungs and pleura: No pleural effusions or pneumothorax. Lungs are clear. Mediastinum: Mediastinal contours are normal. Heart size is normal. Bones and chest wall: No suspicious bony abnormalities. Soft tissues appear unremarkable. IMPRESSION: No acute cardiopulmonary disease. Dictated by: Juan C WAYNE Interpreted: Andie Meier MD on 12/28/2016 at 9:49 Transcribed by: JAMIL on 12/28/2016 at 9:50 Approved by: Andie Meier M.D. on 12/28/2016 at 21:13
--- NOTE | 2016-12-28 09:51 | DRSVH ---
PROCEDURE: X-RAY ABDOMEN, ONE VIEW ([id number]) INDICATIONS: nausea/voimiting last7 days TECHNIQUE: One view of the abdomen acquired. COMPARISON: None. FINDINGS: Surgical changes and devices: Nerve stimulator posterior and catheters noted. IUD projected over the mid pelvis. Bowel: Short air-fluid levels present on the upright exam otherwise bowel gas pattern is normal. Soft tissues: No suspicious abdominal calcifications. Visualized solid organ contours appear normal in size. Bones: No suspicious bony lesions. IMPRESSION: Nonspecific bowel gas pattern. If patient's symptoms persist, recommend repeat imaging or CT. Dictated by: Juan C Peterson [facility] Interpreted: Andie Meier MD on 12/28/2016 at 9:50 Transcribed by: JAMIL on 12/28/2016 at 9:51 Approved by: Andie Meier M.D. on 12/28/2016 at 21:13
[2016-12-28] MEDS: 0.9% Sodium Chloride 250 ML IV SCH (10:09)
[2016-12-28] MEDS ORDERED: Sodium Chloride LOK Flush 10 mL Syringe IVFLUSH PRN ×2 (10:10)
[2016-12-28] MEDS ORDERED: HepLOK Flush 100 unit/mL 5 mL Inj IVFLUSH PRN (10:10)
[2016-12-28] MEDS: levETIRAcetam 500 mg Tablet PO SCH ×2 (13:07→20:27)
[2016-12-28] MEDS: DULoxetine 30 mg DR Capsule PO SCH (13:07)
--- NOTE | 2016-12-28 13:39 | NUR ---
Social Work- Brief Note Data: Pt is a 41 year old female admitted 12/28/16 for neutropenia per H&P. Pt's insurance is [employer] and [employer]. Pt[facility] PCP is the [facility], Aura Dallas MD. Pt is followed by MD Cordao. SW met with pt regarding discharge plan, SW role explained. Pt resides in [place]. [place] and [place]. Pt has no HH or SNF history. Pt's designated DPOA is Nai Guzman, . SW encouraged pt to bring copy to the hospital. Pt to discharge home with mother to transport via POV. No anticipated discharge needs. SW will continue to follow if needs arise. Assessment: Pt [place]. Plan: Pt to discharge home with mother to transport via POV. No anticipated discharge needs. SW will continue to follow if needs arise. DEEPA Brush
[2016-12-28] MEDS: Filgrastim 480 mCg/1.6 mL Inj SUBQ SCH (13:41)
[2016-12-28 14:40] VITALS: BP 80/43; PULSE 70; RESP 15; O2SAT 95
[2016-12-28] MEDS ORDERED: 0.9% Sodium Chloride 1,000 ML IV ONE ×2 (14:50→17:50)
--- NOTE | 2016-12-28 14:51 | PCM.PNMED ---
Subjective Date of Service Dec 28, 2016 Subjective Patient was seen and examined today agree with current plan. Exam Vital Signs Vital Sign - Last Date Time Temp Pulse Resp B/P Pulse Ox O2 Delivery O2 Flow Rate FiO2 12/28/16 14:40 36.8 70 15 80/43 95 Room Air Intake and Output 12/27/16 12/27/16 12/28/16 Cumulative From/Thru 15:00 23:00 07:00 12/28/16 02:57 - 12/28/16 06:08 Intake Total 73 ml 73 ml Output Total 100 ml 100 ml Balance -27 ml -27 ml Intake Oral 0 ml 0 ml IV Total 73 ml 73 ml Output Urine Total 100 ml 100 ml # Bowel Movements 0 0 Exam Physical Exam: GEN: Patient was awake, alert, responding appropriately to questions HEENT: PERRLA, EOMI, Neck soft supple, trachea midline, nomocephalic/atraumatic CV: +S1/S2, RRR, no murmur auscultated Respiratory: CTAB, no wheezes, rales, rhonchi GI: +bowel sounds x4, soft, compressible, non TTP EXT: no c/c/e Neuro: CN II-XII grossly intact Psych: mood and affect were appropriate IVs and Medications Medications Reviewed: Medications were reviewed in detail Lab and Diagnostics Microbiology Clean-catch urine is pending X-Rays, CTs and MRIs X-Ray Chest Interpretation Chest Xray Interpretation: Impression: Port in the left upper chest. No acute cardiopulmonary abnormality. View: AP & lat Interpretation / Wet Read by: Wet read ED physician X-Ray Abdominal Interpretation Impression: Air fluid levels, no evidnece of obstruction. Mostly likely constipation. 12-lead ECG See history of present illness Assessment & Plan 41-year-old woman status post partial mastectomy for stage IA HER-2 negative breast cancer currently receiving adjuvant chemotherapy, chronic pain from fibromyalgia, generalized anxiety, hypothyroid presents 1 week with nausea, vomiting, diarrhea, and found to be neutropenic at 800. #1 acute moderate neutropenia, present on admission, evaluation treatment ongoing Attributed to chemotherapy Patient reportedly had a white blood cell count 800 when evaluated by Continues Zarxio daily -the dose is not then updated on the patient's medication reconciliation, requesting the correct dose to be Continued Neutropenic precautions Recheck CBC with differential in the a.m. #2 nausea vomiting diarrhea, present on admission, ongoing Attributed to chemotherapy and upset from multiple medications. Attributing patient's tachycardia on presentation to depleted volume status Due to numerous allergies, antinausea medication and Zofran remains the best option. Consider Decadron if refractory to Zofran QTC was optimal, 4-8 milligrams IV Zosyn every 4 hours IV hydration normal saline 100 mL per hour. Recheck CMP in the morning #3 breast cancer, status post resection, ongoing chemotherapy Dr. Weber is aware of patient's admission Continue with all outpatient therapies, and consider contacting Dr. Weber if any complications. #4: Medication reconciliation to be performed. Chronic stable Asthma -Albuterol inhaler as needed Fibromyalgia/anxiety/depression -Continue duloxetine, Lyrica, baclofen, doxepin GERD -Protonix twice a day as an inpatient. Consider IV if unable to tolerate oral. Hypothyroidism -Levothyroxine Hyperlipidemia -Simvastatin Migraine headaches -Sumatriptan when necessary VTE Prophylaxis with SCD GI prophylaxis: PPI Pain management: Oxycodone, her outpatient record. Medication reconciliation to be performed, once this is done continue home/outpatient pain management. Please note CODE STATUS, patient is no compressions, no defibrillation, however stated she is okay with intubation if no cardiac arrest. GI Prophylaxis: Proton Pump Inhibitor VTE Prophylaxis: SCDs VTE Mechanical Devices: Intermittant Pneumatic CD Resuscitation Status: Limited Interventions (no chest compressions, no defibrillation. Intubation okay if no cardiac arrest.) Lovely Larkin DO Dec 28, 2016 14:51
--- NOTE | 2016-12-28 15:20 | NUR ---
manager learningcoremaker helper note: Met with patient and re-introduce myself. Patient reports her diarrhea is under control at this time. Still c/o of nausea. Patient reports she is having a hard time with side effects related to Chemotherapy. I asked patient if she still has my card because I could give her another one. She said she did. I encouraged patient to please call me with any concerns or medical questions. I explained our goal is to try to keep her out of the hospital. No care needs identified at this time. Will continue to address any needs as they arise.
--- NOTE | 2016-12-28 16:28 | PROG NOTE ---
[address] [address] PROGRESS NOTE PATIENT: MATTHEW PALOMARES : 1975 MR#: [id number] ADMIT: 12/28/2016 JOB ID: [id number] DATE: 12/28/2016 DIAGNOSIS: 1. Current admission for intractable nausea and vomiting after chemotherapy. 2. Resected stage I, ER positive, breast cancer. HISTORY OF PRESENT ILLNESS: The patient is a very pleasant 41-year-old premenopausal woman with fibromyalgia, chronic pain, chronic depression, generalized anxiety disorder, hypothyroidism, migraines, myoclonus degenerative spine disease and gastroesophageal reflux disease. She underwent partial mastectomy with axillary sentinel lymph node biopsy in October 2016 for a stage I, ER positive, HER-2 two negative breast cancer, but had a high Oncotype DX recurrence score. She was given first dose of adjuvant TC chemotherapy on December 20. She has had significant nausea and vomiting since then, and has felt quite poorly. I saw her in clinic yesterday and gave her 1 L normal saline, and a dose of ondansetron 8 mg IV, but she still had vomiting afterwards in clinic. Later in the evening, she called and reported ongoing vomiting, and was referred to ED. At ED, abdominal x-ray is negative for bowel distention. She actually had a bowel movement yesterday. She has been admitted and has been placed on IV fluids and IV Zofran. Despite IV fluids, she became hypotensive today with a blood pressure down to 80/43 at 2 p.m. She is currently receiving an extra liter bolus. She complains of pain in her left chest when her Port-A-Cath is accessed. She has not had fever or chills so far, but is neutropenic, and received Neupogen yesterday and today. Currently her nausea is only slightly better, and is now only intermittent as opposed to constant until yesterday. She denies fever, chills or sweats. She is still very weak. She threw up her lunch. Her urine is dark but no dysuria. UA is abnormal with many bacteria, and culture has been placed. OBJECTIVE: She appears weak. Awake, alert, oriented x3. She ambulates to bathroom. Last blood pressure 80/43, heart rate 70, temperature 36.8. RECOMMENDATIONS: 1. Continue IV hydration and IV antiemetics. 2. If fever, should be cultured and empiric antibiotics started. I have placed an order for blood culture p.r.n. 3. Continue Neupogen 480 mcg subcutaneously daily. 4. Awaiting urine culture report. She was given a dose of Rocephin 2 g but apparently half of it was not given to her as it was not properly connected to tubing. 5. I have placed an order for Doppler ultrasound of left arm and neck, rule out DVT. I will return tomorrow for followup.
[2016-12-28] MEDS ORDERED: cefTRIAXone Inj 1,000 MG in Dextrose 5% Minibag Plus 50 ML IV ONE (16:30)
[2016-12-28 17:26] VITALS: BP 83/51; PULSE 64; RESP 16; O2SAT 98
--- NOTE | 2016-12-28 19:13 | NUR ---
Hypotensive Pt with hypotension, BP 80/43 in afternoon. MD aware and ordered liter NS bolus. On reassessment, post bolus, BP with minimal improvement = BP 83/51. Pt asymptomatic, denies dizziness when up and about, no c/o SOB or feeling fluid overloaded - pt tolerating. Additional liter bolus hanging at change of shift. NOC RN aware. Care continues
[2016-12-28 19:54] VITALS: BP 107/68; PULSE 85; RESP 16; O2SAT 96
[2016-12-28 22:22] LABS: Mean Corpuscular Volume 79.9 fL (81-100)
[2016-12-28 22:23] LABS: BASOPHILS % (AUTO) 0 % (0-3); EOSINOPHILS % (AUTO) 0 % (0-5); MONOCYTES % (AUTO) 22.5 % (4-12); Mean Corpuscular Hemoglobin 25.7 pg (27.0-35.0); NEUTROPHILS % (AUTO) 23.6 % (40-74); Platelet Count 212 bil/L (150-400)
[2016-12-29 00:02] VITALS: BP 96/59; PULSE 78; RESP 16; O2SAT 92
--- NOTE | 2016-12-29 04:00 | NUR ---
Pain Pt. reports pain getting worse. Oxycodone PO PRN given with relief from pain. Will continue to monitor.
[2016-12-29] MEDS: 0.9% Sodium Chloride 1,000 ML IV SCH ×3 (04:15→21:37)
[2016-12-29 05:07] VITALS: BP 97/65; PULSE 72; RESP 16; O2SAT 96
[2016-12-29 07:26] LABS: BASOPHILS % (AUTO) 1.3 % (0-3); EOSINOPHILS % (AUTO) 1.3 % (0-5); MONOCYTES % (AUTO) 22.9 % (4-12); Mean Corpuscular Hemoglobin 25.8 pg (27.0-35.0); Platelet Count 217 bil/L (150-400)
[2016-12-29 08:03] LABS: Magnesium 1.7 mg/dL (1.6-2.6)
[2016-12-29] MEDS ORDERED: cefTRIAXone Inj 2,000 MG in Dextrose 5% Minibag Plus 50 ML IV ONE (08:15)
[2016-12-29] MEDS: levETIRAcetam 500 mg Tablet PO SCH ×2 (08:36→20:21)
[2016-12-29] MEDS: DULoxetine 30 mg DR Capsule PO SCH (08:36)
[2016-12-29] MEDS: Pantoprazole 40 mg ER24 Tablet PO SCH ×2 (08:37→16:24)
[2016-12-29] MEDS: oxyCODONE ER 10 MG, oxyCODONE ER 20 MG PO SCH ×4 (08:38→20:22)
[2016-12-29] MEDS: Ondansetron 2 mg/mL 2 mL Inj IVPUSH PRN ×2 (08:38→17:52)
[2016-12-29] MEDS: 0.9% Sodium Chloride 250 ML IV SCH (10:09)
--- NOTE | 2016-12-29 10:28 | NUR ---
Social Work- Readiness for Discharge Data: EMR reviewed. Pt is on day 1 of hospitalization for neutropenia per H&P. Pt is not medically stable, anticipate discharge tomorrow. Pt to discharge home with mother to transport via POV. No anticipated discharge needs. SW will continue to follow if needs arise. Assessment: [place] Plan: Pt to discharge home with mother to transport via POV. No anticipated discharge needs. SW will continue to follow if needs arise. Bev [place] MSW
--- NOTE | 2016-12-29 12:06 | DRSVH ---
PROCEDURE: US VENOUS ARM DUPLEX UNILATERAL, LEFT INDICATIONS: ASSESS FOR DVT TECHNIQUE: Real-time imaging, as well as color and pulse Doppler interrogation, was performed of the left upper extremity deep veins from the inferior neck to the antecubital fossa. COMPARISON: None. FINDINGS: The internal jugular vein, visualized portions of the subclavian vein, axillary, and brach ial veins are free of intraluminal thrombus. Where physically possible, the veins are normally compr essible. Color and pulse Doppler demonstrate normal intraluminal flow, with expected phasicity and p ulsatility. Additional scanning of the cephalic and basilic veins of the superficial system demonstr ate normal compressibility, without thrombus. IMPRESSION: No left upper extremity venous thrombosis identified. Dictated by: Juan C Peterson [facility] Interpreted: Annie Martell MD on 12/29/2016 at 12:06 Transcribed by: ZECHARIAH on 12/29/2016 at 12:06 Approved by: Annie Martell MD, PhD on 12/29/2016 at 16:57
[2016-12-29] MEDS: Filgrastim 480 mCg/1.6 mL Inj SUBQ SCH (12:45)
[2016-12-29 15:34] VITALS: BP 99/65; PULSE 92; RESP 16; O2SAT 94
--- NOTE | 2016-12-29 16:37 | PCM.PNMED ---
Subjective Date of Service Dec 29, 2016 Subjective Patient was seen and examined at bedside today. Patient denies any chest pain, shortness of breath, diarrhea. Patient states that her nausea and vomiting have improved significantly however she still having some flank pain but is no longer having the pelvic pressure. Exam Vital Signs Vital Sign - Last Date Time Temp Pulse Resp B/P Pulse Ox O2 Delivery O2 Flow Rate FiO2 12/29/16 15:34 36.8 92 16 99/65 94 Room Air Intake and Output 12/28/16 12/28/16 12/29/16 Cumulative From/Thru 15:00 23:00 07:00 12/28/16 02:57 - 12/29/16 06:05 Intake Total 2452 ml 3330 ml 5855 ml Output Total 1250 ml 1750 ml 3100 ml Balance 1202 ml 1580 ml 2755 ml Intake Oral 400 ml 1200 ml 1600 ml IV Total 2052 ml 2130 ml 4255 ml Output Urine Total 1250 ml 1750 ml 3100 ml # Bowel Movements 0 0 Exam Physical Exam: GEN: Patient was awake, alert, responding appropriately to questions HEENT: PERRLA, EOMI, Neck soft supple, trachea midline, nomocephalic/atraumatic CV: +S1/S2, RRR, no murmur auscultated Respiratory: CTAB, no wheezes, rales, rhonchi GI: +bowel sounds x4, soft, compressible, non TTP, mild CVA tenderness bilaterally EXT: no c/c/e Neuro: CN II-XII grossly intact Psych: mood and affect were appropriate IVs and Medications Medications Reviewed: Medications were reviewed in detail Lab and Diagnostics Result Diagram: 12/29/1635 12/29/1635 Microbiology Clean-catch urine is pending X-Rays, CTs and MRIs X-Ray Chest Interpretation Chest Xray Interpretation: Impression: Port in the left upper chest. No acute cardiopulmonary abnormality. View: AP & lat Interpretation / Wet Read by: Wet read ED physician X-Ray Abdominal Interpretation Impression: Air fluid levels, no evidnece of obstruction. Mostly likely constipation. 12-lead ECG See history of present illness Assessment & Plan 41-year-old woman status post partial mastectomy for stage IA HER-2 negative breast cancer currently receiving adjuvant chemotherapy, chronic pain from fibromyalgia, generalized anxiety, hypothyroid presents 1 week with nausea, vomiting, diarrhea, and found to be neutropenic at 800. #1 acute moderate neutropenia, present on admission, evaluation treatment ongoing Attributed to chemotherapy Patient reportedly had a white blood cell count 800 when evaluated by Continues Zarxio daily -the dose is not then updated on the patient's medication reconciliation, requesting the correct dose to be Continued Neutropenic precautions Recheck CBC with differential in the a.m. #2 nausea vomiting diarrhea, present on admission, (improved) Attributed to chemotherapy and upset from multiple medications. Attributing patient's tachycardia on presentation to depleted volume status Due to numerous allergies, antinausea medication and Zofran remains the best option. Consider Decadron if refractory to Zofran QTC was optimal, 4-8 milligrams IV Zosyn every 4 hours IV hydration normal saline 100 mL per hour. Recheck CMP in the morning #3 breast cancer, status post resection, ongoing chemotherapy Dr. Weber is aware of patient's admission Continue with all outpatient therapies, and consider contacting Dr. Weber if any complications. #4: Medication reconciliation to be performed. Chronic stable Asthma -Albuterol inhaler as needed Fibromyalgia/anxiety/depression -Continue duloxetine, Lyrica, baclofen, doxepin GERD -Protonix twice a day as an inpatient. Consider IV if unable to tolerate oral. Hypothyroidism -Levothyroxine Hyperlipidemia -Simvastatin Migraine headaches -Sumatriptan when necessary VTE Prophylaxis with SCD GI prophylaxis: PPI Pain management: Oxycodone, her outpatient record. Medication reconciliation to be performed, once this is done continue home/outpatient pain management. Please note CODE STATUS, patient is no compressions, no defibrillation, however stated she is okay with intubation if no cardiac arrest. Disposition: The patient seems to be responding well to the IV antibiotics with Rocephin for possible UTI. The patient's flank pain however may be secondary to the use of Neupogen. I discussed this case with Dr. Weber and he feels that the flank pain is secondary to use of Neupogen. The patient seems to be progressing well and feels that she should be ready to be discharged home tomorrow. Patient's symptomatically improving and will most likely be discharged home tomorrow. GI Prophylaxis: Proton Pump Inhibitor VTE Prophylaxis: SCDs VTE Mechanical Devices: Intermittant Pneumatic CD Resuscitation Status: Limited Interventions (no chest compressions, no defibrillation. Intubation okay if no cardiac arrest.) Time spent Greater than 35 minutes Lovely Larkin DO Dec 29, 2016 16:37
--- NOTE | 2016-12-29 18:22 | NUR ---
Pain/Activity Pt stating decreased pain; able to tolerate food this shift. Premedicated for breakfast and dinner with 8mg IVP Zofran. States back pain from being in the bed - stated heat helps. Kpad obtained and placed at low back, pt stating effective. Able to sleep last night and then took nap this afternoon. States having much more energy than at arrival, not quite ready to discharge today. Able to make needs known - Care continues.
[2016-12-29 19:50] VITALS: BP 91/63; PULSE 60; RESP 20; O2SAT 94
--- NOTE | 2016-12-29 22:59 | PROG NOTE ---
[address] [address] PROGRESS NOTE PATIENT: MATTHEW PALOMARES : 1975 MR#: [id number] ADMIT: 12/28/2016 JOB ID: [id number] INPATIENT MEDICAL ONCOLOGY PROGRESS REPORT DATE: 12/29/2016 DIAGNOSES: 1. Current admission for intractable nausea and vomiting, dehydration, all improved. 2. Resected stage I high risk breast cancer undergoing adjuvant chemotherapy. SUBJECTIVE: She feels quite better today. She has not had any more vomiting since yesterday noon. She does not feel nauseated any more. She has not had a bowel movement yet today, although normally she is constipated. She is still slightly weak but much improved. She complains of some bilateral flank pain, which I suspect is from Neupogen. OBJECTIVE: Awake, alert, oriented times three and resting comfortably in bed. Blood pressure 91/63, heart rate 60, temperature 36.7, O2 saturation 94% on room air. LABORATORY DATA: WBC count has increased to 1500 with 13% neutrophils, hemoglobin 8.7, and platelet count 217,000. Complete metabolic profile is normal. IMPRESSION/RECOMMENDATIONS: 1. This patient's nausea and vomiting have resolved. I think she is adequately rehydrated. At baseline she is mildly hypotensive, and this current blood pressure is considered her baseline. 2. Urinary tract infection being treated with intravenous ceftriaxone. Urine culture is still pending. 3. Neutropenia. One more dose Neupogen tomorrow December 30 is sufficient. 4. Resected stage I breast cancer. Subsequent cycle of chemotherapy will be given with major dose reduction.
--- NOTE | 2016-12-29 23:39 | NUR ---
PAIN/ACTIVITY: Pt. resting in bed during initial evening assessment, reports pain at 8/10 requesting pain medication and HS meds. Given her meds as requested. Requested breakthrough pain medication, not given at this time as it was given only 2 hr ago. Given all other meds. Pt. has been up ambulating to the bathroom independently. A & O, vss. On going care.
[2016-12-30 00:50] VITALS: BP 91/61; PULSE 80; RESP 20; O2SAT 94
[2016-12-30 04:56] VITALS: BP 97/62; PULSE 74; RESP 20; O2SAT 95
[2016-12-30 05:49] LABS: Mean Corpuscular Hemoglobin 25.6 pg (27.0-35.0); Mean Corpuscular Volume 81.4 fL (81-100)
[2016-12-30] MEDS: Pantoprazole 40 mg ER24 Tablet PO SCH (06:44)
[2016-12-30] MEDS: 0.9% Sodium Chloride 1,000 ML IV SCH (06:46)
[2016-12-30] MEDS: DULoxetine 30 mg DR Capsule PO SCH (08:28)
[2016-12-30] MEDS: levETIRAcetam 500 mg Tablet PO SCH (08:29)
[2016-12-30] MEDS ORDERED: cefTRIAXone Inj 2,000 MG in Dextrose 5% Minibag Plus 50 ML IV ONE (08:30)
[2016-12-30] MEDS: oxyCODONE ER 10 MG, oxyCODONE ER 20 MG PO SCH ×2 (08:31)
--- NOTE | 2016-12-30 09:17 | PCM.DIMED ---
Discharge Instructions Date of Service Dec 30, 2016 Dates of Hospitalization Dec 28, 2016 at 01:25 Discharge Diagnosis Discharge Diagnosis UTI Moderate neutropenia Breast cancer Diet No restrictions Activity No restrictions (gradually return to her activities of daily living) Call your provider Fever or Chills, Bleeding, Chest pain, Vomitting, Excessive diarrhea Patient Instructions Follow-up Provider: Dallin Schaefer Follow-up with PCP in: 1 week (please follow-up with your PCP if an appointment has not been made please call to make an appointment) Provider: Scott Weber MD Follow-up in: 2 weeks (please follow-up with Dr. Olson irregularly scheduled visit) Lovely Larkin DO Dec 30, 2016 09:17
--- NOTE | 2016-12-30 09:24 | PCM.DC.MED ---
Discharge Summary Date of Service Dec 30, 2016 Dates of Hospitalization Date of Hospital Admission Dec 28, 2016 at 01:25 Date of Discharge: Dec 30, 2016 Providers: Admitting Physician: Alba Vaughn MD Primary Care Physician: Dlalin Schaefer Attending Physician: Alba Vaughn MD Diagnosis at Time of Discharge Diagnosis at Time of Discharge UTI Moderate neutropenia Breast cancer Procedures XRay, CTs & MRIs X-Ray Chest Interpretation Chest Xray Interpretation: Impression: Port in the left upper chest. No acute cardiopulmonary abnormality. View: AP & lat Interpretation / Wet Read by: Wet read ED physician X-Ray Abdominal Interpretation Impression: Air fluid levels, no evidnece of obstruction. Mostly likely constipation. ECG 12 Lead See history of present illness Brief History Patient is a pleasant 41-year-old woman with history of resected stage IA HER-2 negative breast cancer currently on adjuvant chemotherapy, 1 dose, fibromyalgia with chronic pain, generalized anxiety disorder, depression, hypothyroidism, presented to the emergency department via EMS with nausea, vomiting, diarrhea which is been present for 1 week since starting the chemotherapy. Nausea vomiting diarrhea worsened this afternoon after starting Zarxio. She was seen by her oncologist, Dr. Weber, today she was found to have a white blood cell count of 800, and thus started on Zarxio. She denies any blood in her stool, or vomitus. No dysuria, no fevers, no chills, no new weakness, no rashes, no shortness of breath. She does endorse having lightheadedness and dizziness for the last day and half particularly after giving herself medication, she has abdominal pain which she describes as cramping that has been present and worsening over the last week since receiving chemotherapy. In the emergency department her heart rate was found to be 100 beats per minute , respirations 12 per minute, 96% on room air, blood pressure 112/69 was afebrile at 36.9C No hematologic or chemistry studies were performed by the emergency department. EKG sinus tachycardia, heart rate 100, GA interval 164, axis is normal, QTC 454. No signs of acute infarct or ischemia. Chest x-ray did not demonstrate any foci of infection, abdominal series showed distended bowel loops representing constipation. Hospital Course 41-year-old woman status post partial mastectomy for stage IA HER-2 negative breast cancer currently receiving adjuvant chemotherapy, chronic pain from fibromyalgia, generalized anxiety, hypothyroid presents 1 week with nausea, vomiting, diarrhea, and found to be neutropenic at 800. Patient was admitted for intractable nausea and vomiting and pelvic pain and pressure. It was thought that the patient may have a urinary tract infection and was treated with 2 g of Rocephin 3 doses. The patient stated that her pelvic and flank pain and urinary frequency improved. Patient received a full course of antibiotic coverage. The patient's urinary culture came back negative for any organisms. After discussing the case with Dr. Weber it was decided that the patient's flank pain and pelvic pressure was most likely secondary to Neupogen. The patient was fluid resuscitated and her nausea and vomiting resolved. The patient is being discharged home in stable condition and she should follow- up with her primary care physician and Dr. Weber. acute moderate neutropenia, present on admission, evaluation treatment ongoing -Attributed to chemotherapy -Patient reportedly had a white blood cell count 800 when evaluated by -Continues Zarxio daily -the dose is not then updated on the patient's medication reconciliation, requesting the correct dose to be Continued -Neutropenic precautions -Recheck CBC with differential in the a.m. Possible UTI -Rocephin 2 g every 24 hours 3 doses -Urine culture negative nausea vomiting diarrhea, present on admission, (improved) Attr-ibuted to chemotherapy and upset from multiple medications. Attributing patient's tachycardia on presentation to depleted volume status -Due to numerous allergies, antinausea medication and Zofran remains the best option. -Consider Decadron if refractory to Zofran -QTC was optimal, -4-8 milligrams IV Zosyn every 4 hours -IV hydration normal saline 100 mL per hour. -Recheck CMP in the morning breast cancer, status post resection, ongoing chemotherapy -Dr. Weber is aware of patient's admission -Continue with all outpatient therapies, and consider contacting Dr. Weber if any complications. Chronic stable Asthma -Albuterol inhaler as needed Fibromyalgia/anxiety/depression -Continue duloxetine, Lyrica, baclofen, doxepin GERD -Protonix twice a day as an inpatient. Consider IV if unable to tolerate oral. Hypothyroidism -Levothyroxine Hyperlipidemia -Simvastatin Migraine headaches -Sumatriptan when necessary VTE Prophylaxis with SCD GI prophylaxis: PPI Pain management: Oxycodone, her outpatient record. Medication reconciliation to be performed, once this is done continue home/outpatient pain management. Please note CODE STATUS, patient is no compressions, no defibrillation, however stated she is okay with intubation if no cardiac arrest. Disposition: The patient seems to be responding well to the IV antibiotics with Rocephin for possible UTI. The patient's flank pain however may be secondary to the use of Neupogen. I discussed this case with Dr. Weber and he feels that the flank pain is secondary to use of Neupogen. The patient seems to be progressing well and feels that she should be ready to be discharged home tomorrow. Patient's symptomatically improving and will most likely be discharged home tomorrow. Exam Vital Signs (Last) Date Time Temp Pulse Resp B/P Pulse Ox O2 Delivery O2 Flow Rate FiO2 12/30/16 04:56 36.5 74 20 97/62 95 Room Air Exam Physical Exam: GEN: Patient was awake, alert, responding appropriately to questions HEENT: PERRLA, EOMI, Neck soft supple, trachea midline, nomocephalic/atraumatic CV: +S1/S2, RRR, no murmur auscultated Respiratory: CTAB, no wheezes, rales, rhonchi GI: +bowel sounds x4, soft, compressible, non TTP EXT: no c/c/e Neuro: CN II-XII grossly intact Psych: mood and affect were appropriate Test 12/28/16 01:35 12/28/16 21:00 12/29/16 06:35 12/30/16 05:30 Urine Color Dark yellow (YELLOW) Urine Appearance Slightly cloudy Urine pH 5.5 (5.0-8.0) Urine Specific [place] 1.025 (1.003-1.035) Urine Protein Negativemg/dL (NEG,TRACE) Urine Glucose (UA) Negativemg/dL (NEGATIVE) Urine Ketones Tracemg/dL (NEGATIVE) Urine Occult Blood Moderate (NEGATIVE) Urine Nitrite Negative (NEGATIVE) Urine Bilirubin Negative (NEGATIVE) Urine Urobilinogen Normalmg/dL (NORMAL) Urine Leukocyte Esterase Negative (NEGATIVE) Urine RBC 3-10/hpf (0-2) Urine WBC 0-5/hpf (0-5) Urine Epithelial Cells Many/hpf (NONE-MOD) Urine Crystals None seen (NONE SEEN) Urine Bacteria Many/hpf (NONE-FEW) Urine Hyaline Casts None/lpf (NONE) Urine Granular Casts None seen (NONE SEEN) Urine Waxy Casts None seen (NONE SEEN) Urine Red Blood Cell Casts None seen (NONE SEEN) Urine White Blood Cell Casts None seen (NONE SEEN) Urine Mucus Present (None Seen) Urine Trichomonas None seen (NONE SEEN) Urine Yeast None (NONE SEEN) Urinalysis Comment None Urine Culture Reflexed Indicated Band Neutrophils % 1% (1-5) Neutrophils (%) (Auto) 13.0% (40-74) Lymphocytes (%) (Auto) 60.8% (14-46) Monocytes (%) (Auto) 22.9% (4-12) Eosinophils (%) (Auto) 1.3% (0-5) Basophils (%) (Auto) 1.3% (0-3) Magnesium Level 1.7mg/dL (1.6-2.6) Procalcitonin 0.06ng/mL (0.00-0.08) White Blood Count 2.9th/mm3 (3.8-10.1) Red Blood Count 3.44mil/mm3 (3.90-5.20) Hemoglobin 8.8g/dL (12.0-15.6) Hematocrit 28.0% (35.0-46.0) Mean Corpuscular Volume 81.4fL (81-100) Mean Corpuscular Hemoglobin 25.6pg (27.0-35.0) Mean Corpuscular Hemoglobin Concent 31.4% (32.0-37.0) Red Cell Distribution Width 15.4% (12.3-15.4) Platelet Count 241bil/L (150-400) Sodium Level 144mEq/L (134-144) Potassium Level 3.6mEq/L (3.5-5.2) Chloride Level 110mEq/L (97-108) Carbon Dioxide Level 24mmol/L (18-29) Blood Urea Nitrogen 4mg/dL (6-24) Creatinine 0.79mg/dL (0.57-1.00) Estimat Glomerular Filtration Rate 114mL/min (>59) Glucose Level 88mg/dL (60-99) Calcium Level 7.8mg/dL (8.5-10.1) Total Bilirubin 0.3mg/dL (0.0-1.2) Aspartate Amino Transf (AST/SGOT) 16U/L (0-50) Alanine Aminotransferase (ALT/SGPT) 10U/L (0-32) Alkaline Phosphatase 77U/L (25-150) Total Protein 5.1g/dL (6.4-8.4) Albumin 3.0g/dL (3.4-5.0) Microbiology Results Clean-catch urine is pending Discharge Medications Discharge Medications Albuterol HFA (Proair HFA) 8.5 Gm Hfa.aer.ad 2 PUFFS INHALATION Q4H (Reported) Baclofen (Baclofen) 10 Mg Tablet 10 MG PO QID (Reported) Cetirizine HCl (Zyrtec) 10 Mg Capsule 10 MG PO HS (Reported) Doxepin (Doxepin) 10 Mg Capsule 10 MG PO HS (Reported) Duloxetine (Cymbalta) 60 Mg Capsule.dr 60 MG PO DAILY (Reported) Esomeprazole Magnesium (Nexium) 40 Mg Capsule.dr 40 MG PO DAILY (Reported) Filgrastim-Sndz (Zarxio) 480 Mcg/0.8 Ml Syringe 480 MCG IJ DAILY (Reported) Levetiracetam (Levetiracetam) 500 Mg Tablet 500 MG PO BID (Reported) Levothyroxine (Levothyroxine) 112 Mcg Tablet 112 MCG PO DAILY (Reported) Ondansetron (Ondansetron) 8 Mg Tablet 8 MG PO TID (Reported) Oxycodone ER (Oxycontin) 30 Mg Tab.er.12h 30 MG PO BID (Reported) Pregabalin (Lyrica) 150 Mg Capsule 150 MG PO TID (Reported) Simvastatin (Simvastatin) 40 Mg Tablet 40 MG PO HS (Reported) As needed Docusate Sodium (Colace) 100 Mg Capsule 200 MG PO DAILY PRN PRN For Constipation (Reported) Ibuprofen (Ibuprofen) 600 Mg Tablet 600 MG PO TID PRN PRN For Pain (Reported) Sumatriptan Succinate (Sumatriptan Succinate) 100 Mg Tablet 100 MG PO PRN PRN PRN headache (Reported) Please verify dose/frequency, patient states 250mg QID. Maximum daily dosage is 200mg of sumatriptan succinate. oxyCODONE (oxyCODONE) 10 Mg Tablet 10 MG PO Q6H PRN PRN For Pain (Reported) Followup Plan Discharge Diet: No restrictions Discharge Activity: No restrictions (gradually return to her activities of daily living) Follow-up Provider: Dallin Schaefer Follow-up with PCP in: 1 week (please follow-up with your PCP if an appointment has not been made please call to make an appointment) Provider: Scott Weber MD Follow-up in: 2 weeks (please follow-up with Dr. Olson irregularly scheduled visit) Time spent Greater than 35 minutes copies to: Dallin Schaefer Precious L DO Dec 30, 2016 09:24
--- NOTE | 2016-12-30 09:57 | NUR ---
Social Work- Discharge Data: EMR reviewed. Pt is on day 2 of hospitalization for neutropenia per H&P. Pt to discharge today. Pt to discharge home with mother to transport via POV. No discharge needs. Assessment: Pt who is independent at base. Plan: Pt to discharge home with mother to transport via POV. No discharge needs. DEEPA Brush
[2016-12-30] MEDS: 0.9% Sodium Chloride 250 ML IV SCH (10:09)
--- NOTE | 2016-12-30 12:00 | NUR ---
discharged home with family. Eating/drinking, ambulatory. No nausea or diarrhea. Will have f/u appts with Dr Weber and her PCP. No new prescriptions
== END 2016-12-30 13:05 | disposition home or self-care (01) ==
LOC: SED 22:38 → EDUNIT# 22:38 → EDBD 22:38 → OSC 12-28 01:25
PROVIDERS: ADMIT Specialist; ATTEND Specialist
DX: D70.1 Agranulocytosis secondary to cancer chemotherapy (principal); T45.1X5S Adverse effect of antineoplastic and immunosuppressive drugs, sequela; C50.911 Malignant neoplasm of unspecified site of right female breast; N39.0 Urinary tract infection, site not specified; R11.2 Nausea with vomiting, unspecified; R19.7 Diarrhea, unspecified; M79.7 Fibromyalgia; G89.3 Neoplasm related pain (acute) (chronic); F41.8 Other specified anxiety disorders; E03.9 Hypothyroidism, unspecified; J45.909 Unspecified asthma, uncomplicated; K21.9 Gastro-esophageal reflux disease without esophagitis; E78.5 Hyperlipidemia, unspecified; G43.909 Migraine, unspecified, not intractable, without status migrainosus; G47.00 Insomnia, unspecified; K58.9 Irritable bowel syndrome, unspecified; N12 Tubulo-interstitial nephritis, not specified as acute or chronic; Z90.11 Acquired absence of right breast and nipple; Z92.21 Personal history of antineoplastic chemotherapy; Z87.442 Personal history of urinary calculi; Z98.84 Bariatric surgery status; Z79.51 Long term (current) use of inhaled steroids
CPT/HCPCS: 36415; 71020; 74000; 80053; 81000; 81025; 83735; 84145; 85025; 85027; 87086; 93005; 93971; 96361; 96365; 96366; 96375; 96376; 99285; G0378; J0696; J1442; J1642; J2405; J7030

== ENCOUNTER 2017-05-03 10:42 | Inpatient (IN) | payer OTHER ==
[~2017-05-03] VITALS: Ht 162.6 cm; Wt 103.0 kg
[~2017-05-03 10:42] MED LIST changes: -ARIP20TA8 PO; +FILG480S2 IJ; -GUAI400T57 PO; -MULT-1018 PO; +OXYC10TA8 PO; -OXYC1TAB24 PO; -PRE10 PO; -PRE20 PO
--- NOTE | 2017-05-03 10:52 | ED.REPORT ---
HPI-Dyspnea / Wheezing Date of Service May 03, 2017 ED Provider: Omar Rubi MD Patient is a 41 year old female with a hx of asthma, breast cancer, and hypothyroid who presents to the ED via EMS complaining of SOB onset this morning. She has had a cold for the last several days including cough with sputum and a fever (101 yesterday and today). Associated symptoms include mild chest pain which the patient attributes to her fibromyalgia. She denies nausea, vomiting, extremity swelling, or any other symptoms. She does not have a hx of PE. She last had chemotherapy in February and last had radiation yesterday. Nursing Notes Stated Complaint: SOB Chief Complaint: Respiratory Complaints Nursing Notes Reviewed: Yes Allergies: Coded Allergies: Cantaloupe (Verified Allergy, Mild, 12/28/16) Makes ears itch Influenza Virus Vaccines (Verified Allergy, Unknown, 12/28/16) hydromorphone (Verified Allergy, Unknown, MAKES HER SICK, 12/27/16) meperidine (Verified Allergy, Unknown, IV - RUINS IV SITES, 12/27/16) metoclopramide (Verified Allergy, Unknown, MAKES HER FEEL LIKE SKIN CRAWLS BAD, 12/27/16) prochlorperazine (Verified Allergy, Unknown, 12/27/16) prochlorperazine edisylate (Verified Allergy, Unknown, 12/27/16) prochlorperazine maleate (Verified Allergy, Unknown, 12/27/16) promethazine (Verified Allergy, Unknown, 12/27/16) Uncoded Allergies: Honey Dew Melon (Allergy, Mild, 12/28/16) Makes ears itch Scheduled Albuterol HFA (Proair HFA) 8.5 Gm Hfa.aer.ad 2 PUFFS INHALATION Q4H Baclofen (Baclofen) 10 Mg Tablet 10 MG PO QID Cetirizine HCl (Zyrtec) 10 Mg Capsule 10 MG PO HS Doxepin (Doxepin) 10 Mg Capsule 20 MG PO HS Duloxetine (Cymbalta) 60 Mg Capsule.dr 60 MG PO DAILY Esomeprazole Magnesium (Nexium) 40 Mg Capsule.dr 40 MG PO DAILY Filgrastim-Sndz (Zarxio) 480 Mcg/0.8 Ml Syringe 480 MCG IJ DAILY Levetiracetam (Levetiracetam) 500 Mg Tablet 500 MG PO BID Levothyroxine (Levothyroxine) 112 Mcg Tablet 112 MCG PO DAILY Ondansetron (Ondansetron) 8 Mg Tablet 8 MG PO TID Oxycodone ER (Oxycontin) 30 Mg Tab.er.12h 30 MG PO BID Pregabalin (Lyrica) 150 Mg Capsule 150 MG PO TID Simvastatin (Simvastatin) 40 Mg Tablet 40 MG PO HS Scheduled PRN Docusate Sodium (Colace) 100 Mg Capsule 200 MG PO DAILY PRN PRN For Constipation Ibuprofen (Ibuprofen) 600 Mg Tablet 600 MG PO TID PRN PRN For Pain Sumatriptan Succinate (Sumatriptan Succinate) 100 Mg Tablet 100 MG PO PRN PRN PRN headache Please verify dose/frequency, patient states 250mg QID. Maximum daily dosage is 200mg of sumatriptan succinate. 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, finished chemotherapy 02/2017, on radiation Fibromyalgia Sleep apnea IBS Hypothyroid Kidney stones hiatal hernia recent pyelonephritis colonic seizures Reports: Asthma, GERD Reports: Depression, Migraines, Thyroid disease, Urinary tract infection Past Surgical History Lithotripsy Breast reduction 2007 spinal chord stimulator 04/2015 gastric sleeve 2015 R partial mastectomy Reports: Cholecystectomy Family History A-fib Smoking History Never Smoker Social History Previous suicide attempt Alcohol Use: Denies alcohol use Drug Use: Denies drug use Other Social History: Local resident Ambulatory Status Independent Review of Systems Constitutional: Reports: Fever Respiratory: Reports: Prod cough, clear, Shortness of breath Cardiovascular: Reports: Chest pain Musculoskeletal: Denies: Extremity swelling Complete sys rev & neg: except as marked. GI: Denies: Nausea, Vomiting Physical Exam Initial Vital Signs Vital Signs (First) Date Time Temp Pulse Resp B/P Pulse Ox O2 Delivery O2 Flow Rate FiO2 05/03/17 10:54 38.3 130 26 117/63 100 Nasal Cannula 3 Initial VS: Reviewed, Vital signs abnormal Head / Eyes: Atraumatic, Normocephalic Abdomen / GI: Soft, Non-tender Neurologic: Alert, Oriented, Nonfocal Psychiatric: Mood/affect normal, Behavior normal, Normal thought content General/Constitutional: Awake, Alert Distress / Hydration: Positive: Distress moderate Neck: Atraumatic, Full range of motion Respiratory / Chest: Atraumatic Bibasilar crackles Port in L chest, no surrounding erythema L chest pain reproduced with palpation Cardiovascular: Heart sounds NL, No gallop, No murmurs, No rubs Heart Rate / Rhythm: Positive: Tachycardia Lower Extremity / Pelvis / MS: No edema Interpretation & Diagnostics Lab Results Interpretation Result Diagram: 05/03/17 1100 05/03/17 1100 Test 05/03/17 11:00 05/03/17 11:39 White Blood Count 4.4th/mm3 (3.8-10.1) Red Blood Count 3.76mil/mm3 (3.90-5.20) Hemoglobin 9.3g/dL (12.0-15.6) Hematocrit 29.9% (35.0-46.0) Mean Corpuscular Volume 79.5fL (81-100) Mean Corpuscular Hemoglobin 24.7pg (27.0-35.0) Mean Corpuscular Hemoglobin Concent 31.1% (32.0-37.0) Red Cell Distribution Width 15.5% (12.3-15.4) Platelet Count 169bil/L (150-400) Neutrophils (%) (Auto) 82.1% (40-74) Lymphocytes (%) (Auto) 10.4% (14-46) Monocytes (%) (Auto) 4.1% (4-12) Eosinophils (%) (Auto) 2.9% (0-5) Basophils (%) (Auto) 0.5% (0-3) Sodium Level 139mEq/L (134-144) Potassium Level 3.7mEq/L (3.5-5.2) Chloride Level 101mEq/L (97-108) Carbon Dioxide Level 22mmol/L (18-29) Blood Urea Nitrogen 8mg/dL (6-24) Creatinine 0.79mg/dL (0.57-1.00) Estimat Glomerular Filtration Rate 114mL/min (>59) Glucose Level 95mg/dL (60-99) Lactic Acid Level 1.6mmol/L (0.4-2.0) Calcium Level 9.1mg/dL (8.5-10.1) Total Bilirubin 0.4mg/dL (0.0-1.2) Aspartate Amino Transf (AST/SGOT) 36U/L (0-50) Alanine Aminotransferase (ALT/SGPT) 18U/L (0-32) Alkaline Phosphatase 120U/L (25-150) Troponin T 0.010ug/L (0.0-0.011) Pro-B-Type Natriuretic Peptide 159.3pg/mL (0-130) Total Protein 6.3g/dL (6.4-8.4) Albumin 3.4g/dL (3.4-5.0) Procalcitonin 0.08ng/mL (0.00-0.08) D-Dimer 1.44mg/L FEU (<0.50) ECG Interpretation ECG Interpretation: sinus tachy [address], T changes Time: 11:25 Interpreted by: ED physician X-Ray Chest Interpretation Chest Xray Interpretation: IMPRESSION: New thoracic and cervical spine stimulator leads. New left-sided portacatheter. No radiographic evidence of acute cardiopulmonary pathology. Dictated by: Obey Riddle M.D. on 05/03/2017 at 11:42 Approved by: Obey Riddle M.D. on 05/03/2017 at 11:43 View: Portable, 1 view Interpretation / Wet Read by: Interpret - Radiologist CT Chest Interpretation IMPRESSION: 1. No pulmonary emboli. 2. Mild airspace disease within the bilateral lungs is most compatible with pneumonia. 3. Postoperative changes of the stomach are likely related to prior gastric bypass. There may be a hiatal hernia. Fluid within the distal esophagus suggests reflux. 4. Enlargement of the spleen. 5. Intrahepatic and extrahepatic biliary dilatation may be within normal limits given the patient's prior cholecystectomy. However, correlation with patient's liver function tests is recommended. Dictated by: Maury Srinivasan M.D. on 05/03/2017 at 11:58 Approved by: Maury Srinivasan M.D. on 05/03/2017 at 12:04 Study type: CT pulm angiogram Interpretation / Wet Read by: Interpret - Radiologist Re-Eval/Medical Decision Med Decision/Clinical Course 41-year-old female history of breast cancer status post partial right mastectomy 2 months status post chemotherapy currently on radiation presenting with dyspnea times several days. Denies known metastatic disease. On arrival she is tachycardic in the 130s. Requiring 3 L nasal cannula. Troponins are negative. CT scan suggestive of pneumonia. Her heart rate came down to the 120s with 2 L of normal saline. Her lactate is normal. Patient will be admitted for tachycardia and pneumonia. Rocephin and azithromycin given. Blood culture sent. Admitted to hospitalist. Re-Evaluation/Progress : Time of Eval: 13:23 Re-Evaluation/Progress Note: Discussed plan for admission. Patient understands and agrees with plan. All questions addressed at this time. Patient is DNR Consultation : Referral / Consult Name: Kermit Coello MD Consulted With: Hospitalist Call Returned at: 13:31 Business Integration Manager: Will see patient, Agrees with eval, Agrees with plan, Accepts admit Note: Discussed pt's case. Accepts admit. Counseled Regarding: Diagnosis, Lab results, Need for admission Discharge & Departure Impression: Primary Impression: Pneumonia Pneumonia type: due to unspecified organism Laterality: unspecified laterality Lung location: unspecified part of lung Qualified Code: J18.9 - Pneumonia, unspecified organism Additional Impression: Tachycardia Disposition: ADMITTED TO HOSPITAL Discharge Condition All VS Reviewed: Yes Condition: Stable Referrals: Dallin Schaefer (PCP) Haroon Attestation Portions of this note were transcribed by Hans Ramon. I, Dr. Rubi personally performed the history, physical exam and medical decision-making; I reviewed and confirmed the accuracy of the information in the transcribed note. Signed by: Haroon Vazquez, 05/03/17 at 1335 copies to: Dallin Schaefer Ben M MD May 03, 2017 10:52 HANS RAMON May 03, 2017 11:24
[2017-05-03 10:54] VITALS: BP_SYST 117; BP_SYST 177; BP_DIAS 63; PULSE 130; RESP 26; O2SAT 100
[2017-05-03] MEDS ORDERED: 0.9% Sodium Chloride 1,000 ML IV ONE ×2 (11:22→13:20)
[2017-05-03 11:25] VITALS: BP 82/60; PULSE 131
[2017-05-03 11:34] LABS: BASOPHILS % (AUTO) 0.5 % (0-3); EOSINOPHILS % (AUTO) 2.9 % (0-5); MONOCYTES % (AUTO) 4.1 % (4-12); Mean Corpuscular Hemoglobin 24.7 pg (27.0-35.0); Mean Corpuscular Volume 79.5 fL (81-100); NEUTROPHILS % (AUTO) 82.1 % (40-74); Platelet Count 169 bil/L (150-400)
--- NOTE | 2017-05-03 11:46 | DRSVH ---
PROCEDURE: X-RAY CHEST ONE VIEW, PORTABLE ([id number]) INDICATIONS: SOB TECHNIQUE: One view of the chest was acquired. COMPARISON: [facility], , CHEST 1VW (PORTABLE), 02/20/2015, 13:40. FINDINGS: Surgical changes and devices: New spinal stimulator leads in the thoracic and cervical spine. Left-si ded portacatheter tip in the low SVC. Right breast postoperative change. Lungs and pleura: Shallow inspiration. No pleural effusions or pneumothorax. Lungs are clear. Mediastinum: Mediastinal contours appear normal. Heart size is normal. Bones and chest wall: No suspicious bony lesions. Overlying soft tissues appear unremarkable. IMPRESSION: New thoracic and cervical spine stimulator leads. New left-sided portacatheter. No radiog raphic evidence of acute cardiopulmonary pathology. Dictated by: Obey Riddle M.D. on 05/03/2017 at 11:42 Approved by: Obey Riddle M.D. on 05/03/2017 at 11:43
[2017-05-03] MEDS ORDERED: Ondansetron 2 mg/mL 2 mL Inj IVPUSH PRN ×2 (12:00→13:35)
--- NOTE | 2017-05-03 13:06 | DRSVH ---
PROCEDURE: CT ANGIO CHEST PULMONARY EMBOLISM ([id number]) INDICATIONS: breast ca pt, sob, r/o PE TECHNIQUE: After the administration of intravenous contrast, 2 mm thick sections acquired from the pulmonary api felipe to the posterior costophrenic angles. 3-dimensional maximum intensity projection (MIP) coronal a nd sagittal reformats were then acquired through the thorax. For radiation dose reduction, the follo wing was used: automated exposure control, adjustment of mA and/or kV according to patient size. COMPARISON: [facility], CT, CT ANGIO CHEST PE, 12/07/2016, 7:55. FINDINGS: Image quality: Excellent. Pulmonary arteries: Pulmonary arteries are normal in size, and demonstrate no intraluminal filling d efects to suggest central pulmonary embolism. Lungs and pleura: Airspace disease is identified involving the posterior right upper lobe as well as the right lower lobe and left lower lobe. No large effusion or pneumothorax is appreciated. Mild br onchiectasis may be present within the lung bases. Mediastinum: Heart size is normal, without pericardial effusion. No mediastinal or hilar adenopathy . Thoracic aorta is normal in caliber and enhancement. A left-sided central line catheter is noted. Postoperative changes at the gastroesophageal junction are present. The esophagus is fluid-filled and which may represent reflux. There may be a hiatal hernia. However, given postoperative changes, it is difficult to ascertain the normal anatomy. Bones and chest wall: No suspicious bony lesions. Ribs and thoracic spine appear intact throughout. Age-appropriate degenerative changes of the spine are present. 2 spinal stimulator apparatus is no [place]. Thyroid gland is small in size. No axillary or supraclavicular adenopathy. Postoperative chavarria ges of the right breast are noted. Abdomen: The imaged portions of the upper abdomen demonstrate the spleen to be enlarged and measures at least 14.8 cm in length. Postoperative changes of the stomach are present. There also postoperat lewis changes related to a prior cholecystectomy. There is intrahepatic and extrahepatic biliary dilat ation. The common bile duct measures up to approximately 9 mm in diameter. Moderate residual stool seen within the imaged portions of the transverse colon. IMPRESSION: 1. No pulmonary emboli. 2. Mild airspace disease within the bilateral lungs is most compatible with pneumonia. 3. Postoperative changes of the stomach are likely related to prior gastric bypass. There may be a hiatal hernia. Fluid within the distal esophagus suggests reflux. 4. Enlargement of the spleen. 5. Intrahepatic and extrahepatic biliary dilatation may be within normal limits given the patient's prior cholecystectomy. However, correlation with patient's liver function tests is recommended. Dictated by: Maury Srinivasan M.D. on 05/03/2017 at 11:58 Approved by: Maury Srinivasan M.D. on 05/03/2017 at 12:04
[2017-05-03] MEDS ORDERED: Azithromycin Inj 500 MG in Dextrose 5% 250 ML IV ONE (13:20)
[2017-05-03] MEDS ORDERED: cefTRIAXone Inj 2,000 MG in Dextrose 5% Minibag Plus 50 ML IV ONE (13:20)
[2017-05-03] MEDS ORDERED: Alum-Mag Hydrox-Simeth 30 mL Suspension PO PRN ×2 (13:35→16:05)
[2017-05-03 14:26] VITALS: BP 87/61; PULSE 121; RESP 21; O2SAT 100
[2017-05-03] MEDS ORDERED: Polyethylene Glycol (PEG) 17 Gm Powder PO PRN (16:05)
[2017-05-03 16:10] VITALS: PULSE 129
[2017-05-03] MEDS ORDERED: oxyCODONE ER 80 mg ER12 Tablet PO SCH (16:10)
[2017-05-03 16:11] VITALS: BP 89/50; PULSE 128; RESP 18; O2SAT 100
--- NOTE | 2017-05-03 16:14 | PCM.HPMED ---
Subjective Date of Service May 03, 2017 Primary Provider: Admitting Physician: Kermit Coello MD Primary Care Physician: Yessi Dallas MD Attending Physician: Kermit Coello MD Admit Status: From the Emergency Department, 23-Hour Observation, [facility] Telemetry Chief Complaint: Cough, weakness. History of Present Illness: Patient is a 41-year-old female who is very ill for about 3 days with weakness and a productive cough with srivastava phlegm. She has had really no dyspnea at rest or with exertion. No fevers but she has had some chills. No night sweats. No oral intake has been decreased and she feels generally weak as well as dehydrated and thirsty. He developed some pleuritic chest pain. This pain is anterior chest and increases with coughing. This brought her to the ER today. There was initial concern for pulmonary embolism and a CT angiogram was ordered. This was negative for pulmonary embolism and positive for pneumonia. The patient has had no pedal or leg edema. Denies any nausea or diarrhea. She has had some rhinorrhea but this is more consistent she thinks with her allergies. Review of Systems: She has been more anxious and depressed lately. She has had some scalp itchiness with her chemotherapy. She has chronic GERD and this is also been more active recently. She has had a couple of episodes of blood-tinged sputum. She did have a gastric sleeve in the past and lost 80 pounds but since her recent diagnosis of breast cancer she is doing back 70 pounds. All else reviewed and otherwise noncontributory except as noted in the history of present illness. Allergies Coded Allergies: Cantaloupe (Verified Allergy, Mild, 12/28/16) Makes ears itch Influenza Virus Vaccines (Verified Allergy, Unknown, 12/28/16) hydromorphone (Verified Allergy, Unknown, MAKES HER SICK, 12/27/16) meperidine (Verified Allergy, Unknown, IV - RUINS IV SITES, 12/27/16) metoclopramide (Verified Allergy, Unknown, MAKES HER FEEL LIKE SKIN CRAWLS BAD, 12/27/16) prochlorperazine (Verified Allergy, Unknown, 12/27/16) prochlorperazine edisylate (Verified Allergy, Unknown, 12/27/16) prochlorperazine maleate (Verified Allergy, Unknown, 12/27/16) promethazine (Verified Allergy, Unknown, 12/27/16) Uncoded Allergies: Honey Dew Melon (Allergy, Mild, 12/28/16) Makes ears itch Home Medications Uncoded Allergies: Honey Dew Melon (Allergy, Mild, 12/28/16) Makes ears itch Scheduled Albuterol HFA (Proair HFA) 8.5 Gm Hfa.aer.ad 2 PUFFS INHALATION Q4H Baclofen (Baclofen) 10 Mg Tablet 10 MG PO QID Cetirizine HCl (Zyrtec) 10 Mg Capsule 10 MG PO HS Doxepin (Doxepin) 10 Mg Capsule 20 MG PO HS Duloxetine (Cymbalta) 60 Mg Capsule.dr 60 MG PO DAILY Esomeprazole Magnesium (Nexium) 40 Mg Capsule.dr 40 MG PO DAILY Filgrastim-Sndz (Zarxio) 480 Mcg/0.8 Ml Syringe 480 MCG IJ DAILY Levetiracetam (Levetiracetam) 500 Mg Tablet 500 MG PO BID Levothyroxine (Levothyroxine) 112 Mcg Tablet 112 MCG PO DAILY Ondansetron (Ondansetron) 8 Mg Tablet 8 MG PO TID Oxycodone ER (Oxycontin) 30 Mg Tab.er.12h 30 MG PO BID Pregabalin (Lyrica) 150 Mg Capsule 150 MG PO TID Simvastatin (Simvastatin) 40 Mg Tablet 40 MG PO HS Scheduled PRN Docusate Sodium (Colace) 100 Mg Capsule 200 MG PO DAILY PRN PRN For Constipation Ibuprofen (Ibuprofen) 600 Mg Tablet 600 MG PO TID PRN PRN For Pain Sumatriptan Succinate (Sumatriptan Succinate) 100 Mg Tablet 100 MG PO PRN PRN PRN headache Please verify dose/frequency, patient states 250mg QID. Maximum daily dosage is 200mg of sumatriptan succinate. oxyCODONE (oxyCODONE) 10 Mg Tablet 10 MG PO Q6H PRN PRN For Pain PMH Fibromyalgia Breast cancer with recent lumpectomy and chemoradiation therapy. She is still finishing radiation therapy. Chronic pain syndrome, continuous opiate dependence While clonus Recent pneumonia 2 months ago Dyslipidemia Hypothyroidism GERD Depression Anxiety Surgical History Cholecystectomy Gastric sleeve Breast reduction surgery. Lumpectomy Social History Occupation: disabled Hx Alcohol Use: No Hx Substance Use: No Hx Tobacco Use: No Smoking Status: Never Smoker Living Arrangement: Alone Exam Vital Signs Vital Sign - Last Date Time Temp Pulse Resp B/P Pulse Ox O2 Delivery O2 Flow Rate FiO2 05/03/17 14:26 121 21 87/61 100 Nasal Cannula 3 05/03/17 10:54 38.3 Exam Oriented 3. No distress. Fluent speech. Normal affect. Hair loss from recent chemotherapy. Normal skull. Normal nose and ears. Anicteric sclera, symmetric pupils Oropharynx is unremarkable, no facial droop. Neck is supple, normal thyroid. No adenopathy. Lungs are clear, normal effort rate. Heart is regular without murmur gallop or rub. Abdomen soft, nondistended or tender. Extremities are free of pedal edema. Good radial and pedal pulses. Skin is free of rash, lesions. No petechiae or ecchymosis. Joints are grossly normal. Cranial nerves are grossly normal. Motor strength is normal in all extremities. Normal muscular tone. Lab and Diagnostics Result Diagram: 05/03/17 1100 05/03/17 1100 X-Rays, CTs and MRIs Chest CT angiogram IMPRESSION: 1. No pulmonary emboli. 2. Mild airspace disease within the bilateral lungs is most compatible with pneumonia. 3. Postoperative changes of the stomach are likely related to prior gastric bypass. There may be a hiatal hernia. Fluid within the distal esophagus suggests reflux. 4. Enlargement of the spleen. 5. Intrahepatic and extrahepatic biliary dilatation may be within normal limits given the patient's prior cholecystectomy. However, correlation with patient's liver function tests is recommended. Dictated by: Maury Srinivasan M.D. on 05/03/2017 at 11:58 Approved by: Maury Srinivasan M.D. on 05/03/2017 at 12:04 Chest x-ray IMPRESSION: New thoracic and cervical spine stimulator leads. New left-sided portacatheter. No radiographic evidence of acute cardiopulmonary pathology. Dictated by: Obey Riddle M.D. on 05/03/2017 at 11:42 Approved by: Obey Riddle M.D. on 05/03/2017 at 11:43 12-lead ECG Normal sinus rhythm. Assessment & Plan Community required pneumonia, POA. Ceftriaxone and azithromycin. Blood cultures and sputum culture if obtainable. Volume depletion, POA. Normal saline at 100 per hour Fibromyalgia, continuous opiate dependence, POA. Resume usual medications of OxyContin and oxycodone. Hypothyroidism, POA. Resume usual medication dosage. Breast cancer, POA. Follow clinically. Hyperlipidemia, POA. Resume usual medication. Anxiety, and depression. POA. Resume usual medication. Patient is admitted observation status with anticipated length of stay of one night. Full resuscitation, confirmed the time of admission. Pain Evaluation: Adequate Pain Control Resuscitation Status: CPR: Attempt Resuscitation Time spent 40 minutes Kermit Coello MD May 03, 2017 16:14
[2017-05-03] MEDS: 0.9% Sodium Chloride 1,000 ML IV SCH (16:45)
[2017-05-03] MEDS: Heparin 5,000 Unit/mL Inj SUBQ SCH (16:45)
[2017-05-03] MEDS: DULoxetine 30 mg DR Capsule PO SCH (16:45)
[2017-05-03] MEDS ORDERED: ALBU1.25 INHALATION (17:12)
[2017-05-03] MEDS ORDERED: DIPH25CA6 PO (17:12)
[2017-05-03] MEDS: 0.9% Sodium Chloride 250 ML IV SCH (17:37)
[2017-05-03] MEDS ORDERED: HepLOK Flush 100 unit/mL 5 mL Inj IVFLUSH PRN (17:40)
[2017-05-03] MEDS ORDERED: Sodium Chloride LOK Flush 10 mL Syringe IVFLUSH PRN ×2 (17:40)
[2017-05-03] MEDS ORDERED: Albuterol 1.25 mg/3 mL Inhalation Solution NEB PRN (17:45)
--- NOTE | 2017-05-03 18:31 | NUR ---
Arrived, Temperature 1501 - Received report from Halina Lyn RN in the ED. 1520 - She arrived to [facility] 2000 from the ED and was settled into her room. She had a temperature of 38 C. She was given 650 mg Tylenol by mouth. (Repeat temperature at 1830 revealed 38.4 C. Will assess her and see if there are other medications she could receive to cool her down). 0872 - Paged Dr. Coello as she was requesting her home prn nebulizer treatments for when she will need them. He gave a telephone order that was written and scanned to pharmacy. Admission completed including Medication Req and H/P. Care continues. Addendum: 05/03/17 at 1938 by RISHI PALAFOX RN [id number] - Called Dr. Coello and got an order for Ibuprofen as her temperature was still elevated. medical geneticist to give. Placed a fan on her which is helping to cool her down. Care continues.
[2017-05-03 18:42] LABS: APPEARANCE,URINE CLEAR (CLEAR,HAZY); COLOR,URINE YELLOW (YELLOW)
[2017-05-03 18:43] LABS: OCCULT BLOOD,URINE TRACE (NEGATIVE); UROBILINOGEN,URINE NORMAL (NORMAL)
[2017-05-03] MEDS: Ondansetron 2 mg/mL 2 mL Inj IVPUSH PRN (18:50)
[2017-05-03 20:25] VITALS: BP 98/61; PULSE 119; RESP 20; O2SAT 97
[2017-05-03] MEDS: oxyCODONE ER 10 mg ER12 Tablet PO SCH (20:35)
[2017-05-03] MEDS: levETIRAcetam 500 mg Tablet PO SCH (22:02)
[2017-05-04] VITALS (9 sets, daily range): BP systolic 87–116; BP diastolic 54–70; PULSE 72–97; RESP 16–24; O2SAT 94–100
[2017-05-04] MEDS: Heparin 5,000 Unit/mL Inj SUBQ SCH ×3 (00:24→16:16)
[2017-05-04] MEDS: 0.9% Sodium Chloride 1,000 ML IV SCH (02:09)
[2017-05-04 05:55] LABS: BASOPHILS % (AUTO) 0.5 % (0-3); EOSINOPHILS % (AUTO) 4.9 % (0-5); MONOCYTES % (AUTO) 8.2 % (4-12); Mean Corpuscular Hemoglobin 25.1 pg (27.0-35.0); Platelet Count 154 bil/L (150-400)
--- NOTE | 2017-05-04 07:24 | NUR ---
Pain/Temperature/BPs/Weight Gain/HR/Sputum Sample Pt continues to have 7/10 pain that only goes to a 6/10 with pain meds. Pt did receive one dose of 4mg morphine IVP to help with the pain and pt did seem to get some relief since the pt was sleeping on reassessment. Pt continued to be afebrile during the shift. At the beginning of the shift the pt was 37.2 C. Pt's SBP has increased and is now in the 100s. Pt did have a weight gain of 2.2lbs during the night. Pt's HR at the beginning of the shift was ST 100s-120s and began to decrease throughout the shift. Pt is currently SR 70s-80s. Pt was able to provide a sputum sample that was sent.
[2017-05-04] MEDS ORDERED: DULoxetine 30 mg DR Capsule PO SCH (08:30)
[2017-05-04] MEDS ORDERED: oxyCODONE ER 10 mg ER12 Tablet PO SCH (08:30)
[2017-05-04] MEDS: cefTRIAXone Inj 1,000 MG in Dextrose 5% Minibag Plus 50 ML IV SCH (09:41)
[2017-05-04] MEDS: oxyCODONE ER 10 mg ER12 Tablet PO SCH ×2 (09:41→20:56)
[2017-05-04] MEDS: levETIRAcetam 500 mg Tablet PO SCH ×2 (09:42→20:55)
[2017-05-04] MEDS: DULoxetine 30 mg DR Capsule PO SCH (09:42)
[2017-05-04] MEDS: Pantoprazole 40 mg ER24 Tablet PO SCH (09:42)
--- NOTE | 2017-05-04 10:03 | NUR ---
Social Work: Initial Assessment/Multidisciplinary Rounds D: Per EMR review, pt is a 41 year old female admitted for pneumonia, tachycardia. Pt is [facility] with [facility]. Pt has no LTC or VA benefits. PCP is Yessi Dallas MD. NOK is Nai Guzman, mother, . AD information provided- ACCESSIONER requested copy. Readmit score is high, 6/8. Pt discussed in am rounds. Pt discussed in am rounds. Capacity for self care discussed; no concerns or needs at this time. ACCESSIONER met with the patient at bedside. Sw role explained. Contact info and discharge planning checklist provided. Pt lives in a ground level apartment in [facility]. Pt has no steps to enter, uses no DME and is I with ambulation, ADLs and self care. Pt continues to drive, has never had HH or skilled rehab. Pt anticipates discharging back home with no sw needs but is receptive to discharge planning if needs arise. Pt's mother will transport. A: Pt who is I at baseline. P: Evolving; Anticipate pt to discharge home via POV and no sw needs; ACCESSIONER to continue to follow to assess for d/c needs. DEEPA Molina Addendum: 05/04/17 at 1008 by TRINO BROOKS Amended: Links added.
--- NOTE | 2017-05-04 10:43 | PCM.PNMED ---
Subjective Date of Service May 04, 2017 Subjective She is feeling better today. Less cough, still productive of srivastava sputum. She has a mild headache which is typical. No fevers or chills. Some weakness and some dyspnea. No nausea. No abdominal pain or diarrhea. No overnight events noted. Exam Vital Signs Vital Sign - Last Date Time Temp Pulse Resp B/P Pulse Ox O2 Delivery O2 Flow Rate FiO2 05/04/17 09:38 37.0 90 17 96/63 100 Nasal Cannula 3.00 Intake and Output 05/03/17 05/03/17 05/04/17 Cumulative From/Thru 15:00 23:00 07:00 05/03/17 10:54 - 05/04/17 06:03 Intake Total 2000 ml 945 ml 2172 ml 5117 ml Output Total 700 ml 1900 ml 2600 ml Balance 2000 ml 245 ml 272 ml 2517 ml Intake Oral 776 ml 850 ml 1626 ml IV Total 2000 ml 169 ml 1322 ml 3491 ml Output Urine Total 700 ml 1900 ml 2600 ml Exam Alert and oriented -3, no distress. Fluent speech Anicteric sclera. Lungs are clear with normal rate and effort Heart is regular without murmur gallop or rub Abdomen soft nontender, flat Extremities are free of edema. Skin is free of rash or lesions. IVs and Medications Medications Reviewed: Medications were reviewed in detail Lab and Diagnostics Result Diagram: 05/04/1745 05/04/1745 X-Rays, CTs and MRIs Chest CT angiogram IMPRESSION: 1. No pulmonary emboli. 2. Mild airspace disease within the bilateral lungs is most compatible with pneumonia. 3. Postoperative changes of the stomach are likely related to prior gastric bypass. There may be a hiatal hernia. Fluid within the distal esophagus suggests reflux. 4. Enlargement of the spleen. 5. Intrahepatic and extrahepatic biliary dilatation may be within normal limits given the patient's prior cholecystectomy. However, correlation with patient's liver function tests is recommended. Dictated by: Maury Srinivasan M.D. on 05/03/2017 at 11:58 Approved by: Maury Srinivasan M.D. on 05/03/2017 at 12:04 Chest x-ray IMPRESSION: New thoracic and cervical spine stimulator leads. New left-sided portacatheter. No radiographic evidence of acute cardiopulmonary pathology. Dictated by: Obey Riddle M.D. on 05/03/2017 at 11:42 Approved by: Obey Riddle M.D. on 05/03/2017 at 11:43 12-lead ECG Normal sinus rhythm. Assessment & Plan Community required pneumonia, POA. Activated improving. We will continue Ceftriaxone and azithromycin. Blood cultures and sputum culture pending. Volume depletion, POA. Resolved after IV fluids. Fibromyalgia, continuous opiate dependence, POA. Stable. Resume usual medications of OxyContin and oxycodone. Hypothyroidism, POA. Stable. Resume usual medication dosage. Breast cancer, POA. Stable. Follow clinically. Hyperlipidemia, POA. Resume usual medication. Anxiety, and depression. POA. Resume usual medication. Anticipate one additional day in the hospital. Inpatient status. Full resuscitation, confirmed the time of admission. Resuscitation Status: CPR: Attempt Resuscitation Kermit Coello MD May 04, 2017 10:43
[2017-05-04] MEDS: diphenhydrAMINE 25 mg Capsule PO PRN ×2 (11:01→21:02)
[2017-05-04] MEDS: 0.9% Sodium Chloride 250 ML IV SCH (16:12)
--- NOTE | 2017-05-04 17:41 | NUR ---
Pain 0930 - Discussed her care with Dr. Coello and the rest of the multidisciplinary care team during morning rounds. Asked if her IV fluids could be turned off as she was feeling "puffy" and if she could get Benadryl for headaches she gets from the Oxycodone. Dr. Coello said yes. Her IV fluids were saline locked and she was given Benadryl which did help decrease her headache. 3912 - Paged Dr. Coello as she was feeling like she needed something for her breakthrough fibromyalgia pain and was requesting Morphine. Dr. Coello said he would put an order in. She was given 2mg of IV Morphine and was able to fall asleep for awhile. Care continues.
[2017-05-05] MEDS: Heparin 5,000 Unit/mL Inj SUBQ SCH ×2 (00:55→10:07)
[2017-05-05] MEDS: Ondansetron 2 mg/mL 2 mL Inj IVPUSH PRN (01:18)
[2017-05-05 01:25] VITALS: BP 101/68; PULSE 88; RESP 24; O2SAT 95
[2017-05-05 03:36] VITALS: BP 92/62; PULSE 93; RESP 20; O2SAT 93
[2017-05-05 05:23] VITALS: PULSE 93
[2017-05-05] MEDS: diphenhydrAMINE 25 mg Capsule PO PRN (06:14)
--- NOTE | 2017-05-05 06:45 | NUR ---
Pain/Afebrile/Headache/Fluid Retention Pt continues to have pain 9/10 that is only partially relieved by pain meds. Pt remained afebrile throughout the shift. Pt c/o headache which was relieved by taking benadryl prior to pain medications and along with caffeine. Pt realized that she had not had any caffeine since admission so requested a caffeinated drink which pt said helped to resolve her headache. Pt feels bloated r/t fluid resuscitation and the bases or the lungs have crackles. Pt would like to consider the possibility of diuresis if she is unable to urinate more fluid on her own.
[2017-05-05 08:50] VITALS: PULSE 78
[2017-05-05 09:59] VITALS: BP 109/73; PULSE 87; RESP 24; O2SAT 98
[2017-05-05] MEDS: cefTRIAXone Inj 1,000 MG in Dextrose 5% Minibag Plus 50 ML IV SCH (10:05)
[2017-05-05] MEDS: Pantoprazole 40 mg ER24 Tablet PO SCH (10:05)
[2017-05-05] MEDS: levETIRAcetam 500 mg Tablet PO SCH (10:06)
[2017-05-05] MEDS: DULoxetine 30 mg DR Capsule PO SCH (10:06)
[2017-05-05] MEDS: oxyCODONE ER 10 mg ER12 Tablet PO SCH (10:06)
--- NOTE | 2017-05-05 11:26 | PCM.DIMED ---
Discharge Instructions Date of Service May 05, 2017 Dates of Hospitalization May 03, 2017 at 14:03 Discharge Diagnosis Discharge Diagnosis Community required pneumonia, improved. Volume depletion, improved. Fibromyalgia, stable. Continuous opiate dependence, stable. Hypothyroidism, stable. Breast cancer, stable. Hyperlipidemia, stable. Anxiety, and depression. Stable. Diet Discharge Diet: No restrictions Activity Discharge Activity: No restrictions Call your provider Call your provider for: Fever or Chills, Shortness of breath Patient Instructions Follow-up Provider: Yessi Dallas MD Follow-up with PCP in: 1 week Kermit Coello MD May 05, 2017 11:26
[2017-05-05] MEDS ORDERED: CEFU500T61 PO (11:27)
[2017-05-05] MEDS ORDERED: AZIT500T5 PO (11:27)
--- NOTE | 2017-05-05 13:19 | NUR ---
Discharge pt ordered for discharge home, pt aware and agreeable discharge instructions and medications reviewed with patient and family. denies questions concerns for care. pt escorted to main elevators with steady gait and all belongings at about 1315.
--- NOTE | 2017-05-05 13:29 | PCM.DC.MED ---
Discharge Summary Date of Service May 05, 2017 Dates of Hospitalization Date of Hospital Admission May 03, 2017 at 14:03 Date of Discharge: May 05, 2017 Providers: Admitting Physician: Kermit Grande MD Primary Care Physician: Yessi Dallas MD Attending Physician: Kermit Grande MD Diagnosis at Time of Discharge Diagnosis at Time of Discharge Community required pneumonia, improved. Volume depletion, improved. Fibromyalgia, stable. Continuous opiate dependence, stable. Hypothyroidism, stable. Breast cancer, stable. Hyperlipidemia, stable. Anxiety, and depression. Stable. Consultations None Procedures XRay, CTs & MRIs Chest CT angiogram IMPRESSION: 1. No pulmonary emboli. 2. Mild airspace disease within the bilateral lungs is most compatible with pneumonia. 3. Postoperative changes of the stomach are likely related to prior gastric bypass. There may be a hiatal hernia. Fluid within the distal esophagus suggests reflux. 4. Enlargement of the spleen. 5. Intrahepatic and extrahepatic biliary dilatation may be within normal limits given the patient's prior cholecystectomy. However, correlation with patient's liver function tests is recommended. Dictated by: Maury Srinivasan M.D. on 05/03/2017 at 11:58 Approved by: Maury Srinivasan M.D. on 05/03/2017 at 12:04 Chest x-ray IMPRESSION: New thoracic and cervical spine stimulator leads. New left-sided portacatheter. No radiographic evidence of acute cardiopulmonary pathology. Dictated by: Obey Riddle M.D. on 05/03/2017 at 11:42 Approved by: Obey Riddle M.D. on 05/03/2017 at 11:43 ECG 12 Lead Normal sinus rhythm. Brief History Patient is a 41-year-old female who is very ill for about 3 days with weakness and a productive cough with srivastava phlegm. She has had really no dyspnea at rest or with exertion. No fevers but she has had some chills. No night sweats. No oral intake has been decreased and she feels generally weak as well as dehydrated and thirsty. He developed some pleuritic chest pain. This pain is anterior chest and increases with coughing. This brought her to the ER today. There was initial concern for pulmonary embolism and a CT angiogram was ordered. This was negative for pulmonary embolism and positive for pneumonia. The patient has had no pedal or leg edema. Denies any nausea or diarrhea. She has had some rhinorrhea but this is more consistent she thinks with her allergies. Hospital Course #. Community required pneumonia, POA. Activated improving. We will continue Ceftriaxone and azithromycin. Blood cultures and sputum culture pending. This improved a daily basis with IV antibiotics. #. Volume depletion, POA. Resolved after IV fluids. This improved with fluid resuscitation. Fibromyalgia, continuous opiate dependence, POA. Stable. Resume usual medications of OxyContin and oxycodone. Remained stable. Hypothyroidism, POA. Stable. Resume usual medication dosage. Remained stable. Breast cancer, POA. Stable. Follow clinically. Remained stable. Hyperlipidemia, POA. Resume usual medication. Remained stable. Anxiety, and depression. POA. Resume usual medication. Remained stable. Exam Vital Signs (Last) Date Time Temp Pulse Resp B/P Pulse Ox O2 Delivery O2 Flow Rate FiO2 05/05/17 09:59 37.0 87 24 109/73 98 05/05/17 03:36 Room Air 05/04/17 09:38 3.00 Exam Patient was seen and examined on the day of discharge Test 05/03/17 11:00 05/03/17 11:39 05/03/17 18:25 05/04/17 05:45 Lactic Acid Level 1.6mmol/L (0.4-2.0) Troponin T 0.010ug/L (0.0-0.011) Pro-B-Type Natriuretic Peptide 159.3pg/mL (0-130) D-Dimer 1.44mg/L FEU (<0.50) Urine Color Yellow (YELLOW) Urine Appearance Clear (CLEAR,HAZY) Urine pH 5.0 (5.0-8.0) Urine Specific [place] 1.005 (1.003-1.035) Urine Protein Negativemg/dL (NEG,TRACE) Urine Glucose (UA) Negativemg/dL (NEGATIVE) Urine Ketones Negativemg/dL (NEGATIVE) Urine Occult Blood Trace (NEGATIVE) Urine Nitrite Negative (NEGATIVE) Urine Bilirubin Negative (NEGATIVE) Urine Urobilinogen Normalmg/dL (NORMAL) Urine Leukocyte Esterase Negative (NEGATIVE) Urine RBC 0-2/hpf (0-2) Urine WBC 0-5/hpf (0-5) Urine Epithelial Cells Few/hpf (NONE-MOD) Urine Crystals None seen (NONE SEEN) Urine Bacteria Few/hpf (NONE-FEW) Urine Hyaline Casts None/lpf (NONE) Urine Granular Casts None seen (NONE SEEN) Urine Waxy Casts None seen (NONE SEEN) Urine Red Blood Cell Casts None seen (NONE SEEN) Urine White Blood Cell Casts None seen (NONE SEEN) Urine Mucus None seen (None Seen) Urine Trichomonas None seen (NONE SEEN) Urine Yeast None (NONE SEEN) Urinalysis Comment None Urine Culture Reflexed Not indicated Urine Opiates Screen Negative Urine Methadone Screen Negative Urine Barbiturates Screen Negative Urine Amphetamines Screen Negative Urine Benzodiazepines Screen Negative Urine Cocaine Metabolite Screen Negative Urine Cannabinoids Screen Negative White Blood Count 4.3th/mm3 (3.8-10.1) Red Blood Count 3.11mil/mm3 (3.90-5.20) Hemoglobin 7.8g/dL (12.0-15.6) Hematocrit 25.2% (35.0-46.0) Mean Corpuscular Volume 81.0fL (81-100) Mean Corpuscular Hemoglobin 25.1pg (27.0-35.0) Mean Corpuscular Hemoglobin Concent 31.0% (32.0-37.0) Red Cell Distribution Width 15.9% (12.3-15.4) Platelet Count 154bil/L (150-400) Neutrophils (%) (Auto) 73.0% (40-74) Lymphocytes (%) (Auto) 13.4% (14-46) Monocytes (%) (Auto) 8.2% (4-12) Eosinophils (%) (Auto) 4.9% (0-5) Basophils (%) (Auto) 0.5% (0-3) Sodium Level 142mEq/L (134-144) Potassium Level 4.1mEq/L (3.5-5.2) Chloride Level 109mEq/L (97-108) Carbon Dioxide Level 23mmol/L (18-29) Blood Urea Nitrogen 9mg/dL (6-24) Creatinine 0.78mg/dL (0.57-1.00) Estimat Glomerular Filtration Rate 115mL/min (>59) Glucose Level 95mg/dL (60-99) Calcium Level 8.5mg/dL (8.5-10.1) Total Bilirubin 0.3mg/dL (0.0-1.2) Aspartate Amino Transf (AST/SGOT) 35U/L (0-50) Alanine Aminotransferase (ALT/SGPT) 26U/L (0-32) Alkaline Phosphatase 123U/L (25-150) Total Protein 5.0g/dL (6.4-8.4) Albumin 3.1g/dL (3.4-5.0) Procalcitonin 9.54ng/mL (0.00-0.08) Discharge Medications Discharge Medications Azithromycin (Azithromycin) 500 Mg Tablet 500 MG PO DAILY Prescribed by: KERMIT GRANDE MD Baclofen (Baclofen) 10 Mg Tablet 10 MG PO QID (Reported) Cefuroxime Axetil (Cefuroxime) 500 Mg Tablet 500 MG PO BID Prescribed by: KERMIT GRANDE MD Cetirizine HCl (Zyrtec) 10 Mg Capsule 10 MG PO HS (Reported) Doxepin (Doxepin) 10 Mg Capsule 20 MG PO HS (Reported) Duloxetine (Cymbalta) 60 Mg Capsule.dr 60 MG PO DAILY (Reported) Esomeprazole Magnesium (Nexium) 40 Mg Capsule.dr 40 MG PO DAILY (Reported) Levetiracetam (Levetiracetam) 500 Mg Tablet 1,000 MG PO BID (Reported) Levothyroxine (Levothyroxine) 112 Mcg Tablet 112 MCG PO DAILY (Reported) Ondansetron (Ondansetron) 8 Mg Tablet 8 MG PO TID (Reported) Oxycodone ER (Oxycontin) 30 Mg Tab.er.12h 30 MG PO BID (Reported) Pregabalin (Lyrica) 150 Mg Capsule 150 MG PO TID (Reported) Simvastatin (Simvastatin) 40 Mg Tablet 40 MG PO HS (Reported) As needed Albuterol Neb Soln (Albuterol Neb Soln) 1.25 Mg/3 Ml Vial.neb Unknown Dose INHALATION Q4H PRN PRN For Shortness of Breath (Reported) Docusate Sodium (Colace) 100 Mg Capsule 200 MG PO DAILY PRN PRN For Constipation (Reported) Ibuprofen (Ibuprofen) 600 Mg Tablet 600 MG PO TID PRN PRN For Pain (Reported) Sumatriptan Succinate (Sumatriptan Succinate) 100 Mg Tablet 100 MG PO PRN PRN PRN headache (Reported) Please verify dose/frequency, patient states 250mg QID. Maximum daily dosage is 200mg of sumatriptan succinate. diphenhydrAMINE HCl (Benadryl) 25 Mg Capsule 25 MG PO TID PRN PRN For Itching ( Reported) oxyCODONE (oxyCODONE) 10 Mg Tablet 10 MG PO Q6H PRN PRN For Pain (Reported) Followup Plan Disposition: Home Discharge Diet: No restrictions Discharge Activity: No restrictions Follow-up Provider: Yessi Dallas MD Follow-up with PCP in: 1 week Time spent 40 minutes Kermit Grande MD May 05, 2017 13:29
--- NOTE | 2017-05-05 14:24 | NUR ---
Social Work- Discharge Data: Pt to discharge today. Pt discharged home with her mother, no discharge needs. Assessment: Pt who is independent at baseline. Plan: Pt discharged home with her mother, no discharge needs. DEEPA Brush
== END 2017-05-05 13:15 | disposition home or self-care (01) | DRG 195 ==
LOC: SED 10:42 → PCC 14:03
PROVIDERS: ADMIT Hospitalist; ATTEND Hospitalist
DX: J18.9 Pneumonia, unspecified organism (principal); E03.9 Hypothyroidism, unspecified; J45.909 Unspecified asthma, uncomplicated; M79.7 Fibromyalgia; Z66 Do not resuscitate; R25.8 Other abnormal involuntary movements; E86.0 Dehydration; K21.9 Gastro-esophageal reflux disease without esophagitis; F41.8 Other specified anxiety disorders; Z79.51 Long term (current) use of inhaled steroids; Z79.891 Long term (current) use of opiate analgesic

== ENCOUNTER 2017-05-28 17:36 | Inpatient (IN) | payer OTHER ==
[~2017-05-28] VITALS: Ht 162.6 cm; Wt 103.0 kg
[~2017-05-28 17:36] MED LIST changes: +ALBU1.25 INHALATION; -ALBU8.5H2 INHALATION; +AZIT500T5 PO; +CEFU500T61 PO; +DIPH25CA6 PO; -FILG480S2 IJ
[2017-05-28 17:39] VITALS: BP 126/77; PULSE 131; RESP 36; O2SAT 95
--- NOTE | 2017-05-28 18:14 | DRSVH ---
PROCEDURE: X-RAY CHEST ONE VIEW, PORTABLE ([id number]) INDICATIONS: chest pain, cough TECHNIQUE: One view of the chest was acquired. COMPARISON: [facility], CR, XR CHEST 2VW, 12/28/2016, 0:19. FINDINGS: Surgical changes and devices: Neuro stimulator leads. Left breast and cholecystectomy clips. Lungs and pleura: No pleural effusions or pneumothorax. Lung patchy opacity noted in the left lung base which could represent atelectasis versus developing pneumonia. Mediastinum: Mediastinal contours appear normal. Heart size is normal. Bones and chest wall: No suspicious bony lesions. Overlying soft tissues appear unremarkable. IMPRESSION: Left basilar opacity compatible atelectasis versus early pneumonia. Please correlate wi th clinical and laboratory findings. Dictated by: Annie Martell MD, PhD on 05/28/2017 at 18:12 Approved by: Annie Martell MD, PhD on 05/28/2017 at 18:13
[2017-05-28 19:09] LABS: BASOPHILS % (AUTO) 0.7 % (0-3); EOSINOPHILS % (AUTO) 0.4 % (0-5); MONOCYTES % (AUTO) 10.6 % (4-12); Mean Corpuscular Hemoglobin 23.9 pg (27.0-35.0); Mean Corpuscular Volume 75.6 fL (81-100); NEUTROPHILS % (AUTO) 79.1 % (40-74); Platelet Count 179 bil/L (150-400)
[2017-05-28 19:25] VITALS: PULSE 112
[2017-05-28] MEDS ORDERED: Ondansetron 2 mg/mL 2 mL Inj IVPUSH ONE (19:55)
[2017-05-28] MEDS: Piperacillin-Tazo 3.375 Gm Inj 3.375 GM in Dextrose 5% Minibag Plus 50 ML IV ONE ×2 (20:17→20:25)
[2017-05-28] MEDS ORDERED: levETIRAcetam 500 mg Tablet PO ONE (20:40)
[2017-05-28] MEDS ORDERED: 0.9% Sodium Chloride 1,000 ML IV ONE ×2 (20:45→23:45)
--- NOTE | 2017-05-28 20:57 | ED.REPORT ---
HPI-General Illness Date of Service May 28, 2017 ED Provider: Abebe Cassidy DO Patient is a 41-year-old woman with breast cancer currently on radiation, fibromyalgia, depression, and myoclonus who presents to the emergency department with acute onset shortness of breath, fever, cough, chest and back pain that started this morning. She describes waking up feeling like she was wheezing and Dramamine. She was diagnosed with pneumonia 2 weeks ago had a 3 day hospital stay, and had a Z-Kwaku and cefuroxime at home. She was not able to take her last 2 doses as cefuroxime due to GI upset. The highest temperature recorded at home was 103.5. She has had a cough since her pneumonia started 2 weeks ago, it worsened today. Her chest and back pain are noted or so she describes it as a deep ache without radiation. She additionally endorses a headache in the halo distribution, she has some chills. She denies vision changes, abdominal pain, dysuria, melena, hematochezia. Nursing Notes Stated Complaint: SOB, HIGH FEVER, COUGH, CHEST/BACK PAIN Chief Complaint: General Complaint Nursing Notes Reviewed: Yes Allergies: Coded Allergies: Cantaloupe (Verified Allergy, Mild, 05/29/17) Makes ears itch Influenza Virus Vaccines (Verified Allergy, Unknown, 05/29/17) hydromorphone (Verified Allergy, Unknown, MAKES HER SICK, 05/29/17) meperidine (Verified Allergy, Unknown, IV - RUINS IV SITES, 05/29/17) metoclopramide (Verified Allergy, Unknown, MAKES HER FEEL LIKE SKIN CRAWLS BAD, 05/29/17) prochlorperazine (Verified Allergy, Unknown, 05/29/17) prochlorperazine edisylate (Verified Allergy, Unknown, 05/29/17) prochlorperazine maleate (Verified Allergy, Unknown, 05/29/17) promethazine (Verified Allergy, Unknown, 05/29/17) Uncoded Allergies: Honey Dew Melon (Allergy, Mild, 12/28/16) Makes ears itch Scheduled Ascorbic Acid (Vitamin C) 250 Mg Tab.chew 250 MG PO DAILY Baclofen (Baclofen) 10 Mg Tablet 10 MG PO QID Cetirizine HCl (Zyrtec) 10 Mg Capsule 10 MG PO prn Doxepin (Doxepin) 10 Mg Capsule 20 MG PO HS Duloxetine (Cymbalta) 60 Mg Capsule.dr 60 MG PO DAILY Esomeprazole Magnesium (Nexium) 40 Mg Capsule.dr 40 MG PO DAILY Ferrous Sulfate (Iron) 325 Mg Tablet 325 MG PO DAILY Levetiracetam (Levetiracetam) 500 Mg Tablet 1,000 MG PO BID Levothyroxine (Levothyroxine) 112 Mcg Tablet 112 MCG PO DAILY Oxycodone ER (Oxycontin) 30 Mg Tab.er.12h 30 MG PO BID Pregabalin (Lyrica) 150 Mg Capsule 150 MG PO TID Simvastatin (Simvastatin) 40 Mg Tablet 40 MG PO HS Scheduled PRN Albuterol Neb Soln (Albuterol Neb Soln) 1.25 Mg/3 Ml Vial.neb Unknown Dose INHALATION Q4H PRN PRN For Shortness of Breath Docusate Sodium (Colace) 100 Mg Capsule 200 MG PO DAILY PRN PRN For Constipation Ibuprofen (Ibuprofen) 600 Mg Tablet 600 MG PO TID PRN PRN For Pain Ondansetron (Ondansetron) 8 Mg Tablet 8 MG PO TID PRN PRN For Nausea Sumatriptan Succinate (Sumatriptan Succinate) 100 Mg Tablet 100 MG PO PRN PRN PRN headache Please verify dose/frequency, patient states 250mg QID. Maximum daily dosage is 200mg of sumatriptan succinate. 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, finished chemotherapy 02/2017, on radiation Fibromyalgia Sleep apnea IBS Hypothyroid Kidney stones hiatal hernia recent pyelonephritis colonic seizures Reports: Asthma, GERD Reports: Depression, Migraines, Thyroid disease, Urinary tract infection Past Surgical History Lithotripsy Breast reduction 2008 spinal chord stimulator 04/2015 gastric sleeve 2015 R partial mastectomy Reports: Cholecystectomy Family History A-fib Smoking History Never Smoker Social History Previous suicide attempt Alcohol Use: Denies alcohol use Drug Use: Denies drug use Other Social History: Local resident Ambulatory Status Independent Review of Systems A comprehensive review of systems was conducted with the patient and found to be negative except as above in the History of Present Illness. Physical Exam Vital Signs Vital Signs Date Time Temp Pulse Resp B/P Pulse Ox O2 Delivery O2 Flow Rate FiO2 05/28/17 23:41 37.5 99 22 85/52 96 Room Air 05/28/17 19:25 112 05/28/17 17:39 38.6 131 36 126/77 95 Room Air Initial VS: Reviewed, Vital signs abnormal (tachypnea, febrile) General/Constitutional: Well-developed, Well-nourished Head / Eyes: Atraumatic, Normocephalic, PERRL ENT: Mucous membranes moist, Conjunctiva normal, No scleral icterus Neck: Supple, Non-tender, Full range of motion Abdomen / GI: Soft, Non-tender, No guarding, No rebound, No distention Back: No CVA tenderness Lymphatic: No lymphadenopathy Extremities: Vascular intact, Neuro intact, No swelling, No tenderness Skin: Warm, Dry, No cyanosis Neurologic: Alert, Oriented, Nonfocal Psychiatric: Mood/affect normal, Behavior normal, Normal thought content General/Constitutional: Awake, Alert Distress / Hydration: Positive: Distress mild Respiratory / Chest: Atraumatic Resp Distress / Stridor: Positive: Resp distress mild Diminished Breath Sounds: Positive: Decreased L (base) Cardiovascular: Regular rhythm, No murmurs, Peripheral circulation NL Heart Rate / Rhythm: Positive: Tachycardia Interpretation & Diagnostics Lab Results Interpretation Result Diagram: 05/29/17 0520 05/29/17 0520 Test 05/28/17 18:57 05/28/17 20:25 05/28/17 21:43 D-Dimer 1.81mg/L FEU (<0.50) Lactic Acid Level 2.0mmol/L (0.4-2.0) Phosphorus Level 3.6mg/dL (2.5-4.9) Magnesium Level 1.7mg/dL (1.6-2.6) Troponin T 0.010ug/L (0.0-0.011) Hold Urine Received (Received) Urine Color Yellow (YELLOW) Urine Appearance Clear (CLEAR,HAZY) Urine pH 7.0 (5.0-8.0) Urine Specific Ernest 1.005 (1.003-1.035) Urine Protein Negativemg/dL (NEG,TRACE) Urine Glucose (UA) Negativemg/dL (NEGATIVE) Urine Ketones Negativemg/dL (NEGATIVE) Urine Occult Blood Negative (NEGATIVE) Urine Nitrite Negative (NEGATIVE) Urine Bilirubin Negative (NEGATIVE) Urine Urobilinogen Normalmg/dL (NORMAL) Urine Leukocyte Esterase Negative (NEGATIVE) Urine RBC 0-2/hpf (0-2) Urine WBC 0-5/hpf (0-5) Urine Epithelial Cells Few/hpf (NONE-MOD) Urine Crystals None seen (NONE SEEN) Urine Bacteria Few/hpf (NONE-FEW) Urine Hyaline Casts None/lpf (NONE) Urine Granular Casts None seen (NONE SEEN) Urine Waxy Casts None seen (NONE SEEN) Urine Red Blood Cell Casts None seen (NONE SEEN) Urine White Blood Cell Casts None seen (NONE SEEN) Urine Mucus None seen (None Seen) Urine Trichomonas None seen (NONE SEEN) Urine Yeast None (NONE SEEN) Urinalysis Comment None Urine Culture Reflexed Not indicated Urine Legionella pneumophilia Ag Negative (Negative) ECG Interpretation ECG Interpretation: Sinus tachycardia at a rate of [address] changes Time: 18:36 Interpreted by: ED physician X-Ray Chest Interpretation Chest Xray Interpretation: Left basilar opacity, atelectasis versus early pneumonia View: Portable Interpretation / Wet Read by: Interpret - Radiologist CT Chest Interpretation IMPRESSION: 1. Study limited by suboptimal contrast opacification of the segmental and subsegmental pulmonary arteries. 2. A large central pulmonary embolus. Small pulmonary emboli involving the segmental and subsegmental pulmonary arteries cannot be excluded. 3. Status post gastric bypass. 4. Small hiatal hernia with concentric distal esophageal thickening. The esophagus is diffusely patulous and fluid-filled. Distal esophageal obstructing mass or benign stricture cannot be excluded. Recommend either endoscopy or barium contrast upper GI series for further evaluation. 5. Splenomegaly. Dictated by: Annie Martell MD, PhD on 05/28/2017 at 21:09 Re-Eval/Medical Decision Med Decision/Clinical Course Patient is a 41-year-old woman with breast cancer currently on radiation, fibromyalgia, depression, and myoclonus who presents to the emergency department with acute onset shortness of breath, fever, cough, chest and back pain that started this morning. She continues to be febrile, tachypneic, and tachycardic in the emergency department. She was given her home dose of pain medication, Zosyn, 1 L normal saline, CT angiogram shows no large PE though was a suboptimal exam. Additionally she has fluid in her esophagus with a hiatal hernia, Patient may need endoscopy. She has elevated transaminases since her last admission which is unknown determined etiology. Patient is not having any right upper quadrant pain. Respiratory viral PCR, and broad-spectrum antibiotics for HCAP were initiated. Lab, imaging results, and need for admission were discussed with patient, questions were answered. Discussed patient's case with hospitalist who accepted admit. Consultation : Referral / Consult Name: Alba Vaughn MD Consulted With: Hospitalist Call Returned at: 10:30 Scruff Worker: Agrees with eval, Agrees with plan, Accepts admit Counseled Regarding: Diagnosis, Lab results, Need for admission Discharge & Departure Primary Impression: HCAP (healthcare-associated pneumonia) Additional Impression: Elevated transaminase level Disposition: ADMITTED TO HOSPITAL Discharge Condition All VS Reviewed: Yes Condition: Stable Referrals: Yessi Dallas MD (PCP) Attending Statement I personally took a history performed a physical examination. I concur with the assessment and plan. I suspect that this young lady's developing early pneumonia. She has been recently hospitalized or treated for healthcare associated pneumonia. copies to: Yessi Dallas MD, Erika R DO May 28, 2017 20:57 Abebe Cassidy DO May 29, 2017 18:18 Few/hpf (NONE-FEW) Urine Hyaline Casts None/lpf (NONE) Urine Granular Casts None seen (NONE SEEN) Urine Waxy Casts None seen (NONE SEEN) Urine Red Blood Cell Casts None seen (NONE SEEN) Urine White Blood Cell Casts None seen (NONE SEEN) Urine Mucus None seen (None Seen) Urine Trichomonas None seen (NONE SEEN) Urine Yeast None (NONE SEEN) Urinalysis Comment None Urine Culture Reflexed Not indicated ECG Interpretation ECG Interpretation: Sinus tachycardia at a rate of [address] changes Time: 18:36 Interpreted by: ED physician X-Ray Chest Interpretation Chest Xray Interpretation: Left basilar opacity, atelectasis versus early pneumonia View: Portable Interpretation / Wet Read by: Interpret - Radiologist CT Chest Interpretation IMPRESSION: 1. Study limited by suboptimal contrast opacification of the segmental and subsegmental pulmonary arteries. 2. A large central pulmonary embolus. Small pulmonary emboli involving the segmental and subsegmental pulmonary arteries cannot be excluded. 3. Status post gastric bypass. 4. Small hiatal hernia with concentric distal esophageal thickening. The esophagus is diffusely patulous and fluid-filled. Distal esophageal obstructing mass or benign stricture cannot be excluded. Recommend either endoscopy or barium contrast upper GI series for further evaluation. 5. Splenomegaly. Dictated by: Annie Martell MD, PhD on 05/28/2017 at 21:09 Re-Eval/Medical Decision Med Decision/Clinical Course Patient is a 41-year-old woman with breast cancer currently on radiation, fibromyalgia, depression, and myoclonus who presents to the emergency department with acute onset shortness of breath, fever, cough, chest and back pain that started this morning. She continues to be febrile, tachypneic, and tachycardic in the emergency department. She was given her home dose of pain medication, Zosyn, 1 L normal saline, CT angiogram shows no large PE though was a suboptimal exam. Additionally she has fluid in her esophagus with a hiatal hernia, Patient may need endoscopy. She has elevated transaminases since her last admission which is unknown determined etiology. Patient is not having any right upper quadrant pain. Respiratory viral PCR, and broad-spectrum antibiotics for HCAP were initiated. Lab, imaging results, and need for admission were discussed with patient, questions were answered. Discussed patient's case with hospitalist who accepted admit. Consultation : Referral / Consult Name: Alba Vaughn MD Consulted With: Hospitalist Call Returned at: 10:30 Scruff Worker: Agrees with eval, Agrees with plan, Accepts admit Counseled Regarding: Diagnosis, Lab results, Need for admission Discharge & Departure Primary Impression: HCAP (healthcare-associated pneumonia) Additional Impression: Elevated transaminase level Disposition: ADMITTED TO HOSPITAL Discharge Condition All VS Reviewed: Yes Condition: Stable Referrals: Yessi Dallas MD (PCP) copies to: Yessi Dallas MD, Erika R DO May 28, 2017 20:57
--- NOTE | 2017-05-28 21:18 | DRSVH ---
PROCEDURE: CT ANGIO CHEST PULMONARY EMBOLISM ([id number]) INDICATIONS: tachycardia, tacypnea, breast cancer TECHNIQUE: After the administration of intravenous contrast, 2 mm thick sections acquired from the pulmonary api felipe to the posterior costophrenic angles. 3-dimensional maximum intensity projection (MIP) coronal a nd sagittal reformats were then acquired through the thorax. For radiation dose reduction, the follo wing was used: automated exposure control, adjustment of mA and/or kV according to patient size. COMPARISON: [facility], CT, CT KUB, 02/09/2016, 20:14. [facility], CT, CT AN KEYLA CHEST PE, 05/03/2017, 12:29. [facility], CT, CT ANGIO CHEST PE, 12/07/2016, 7:55. FINDINGS: Image quality: Limited by suboptimal contrast opacification of the segmental and subsegmental pulmon joanie arteries. Pulmonary arteries: Pulmonary arteries are normal in size, and demonstrate no intraluminal filling d efects to suggest central pulmonary embolism. Lungs and pleura: Atelectasis noted in the dependent portions of the lungs. No pleural effusions or pneumothorax. Central and peripheral airways are patent. Mediastinum: Heart size is normal, without pericardial effusion. No mediastinal or hilar adenopathy . Thoracic aorta is normal in caliber and enhancement. Esophagus is normal in caliber, without hiat al hernia. Bones and chest wall: Postsurgical changes noted in the right breast. No suspicious bony lesions. Ribs and thoracic spine appear intact throughout. Thyroid gland is within normal limits where visual ized. No axillary or supraclavicular adenopathy. Presence of neurostimulator leads noted. Abdomen: Postsurgical changes compatible with gastric bypass surgery noted. Hiatal hernia is noted. The esophagus is patulous and distal obstructing lesion cannot be excluded. Gallbladder is surgica lly absent. Spleen is enlarged. IMPRESSION: 1. Study limited by suboptimal contrast opacification of the segmental and subsegmental pulmonary ar teries. 2. A large central pulmonary embolus. Small pulmonary emboli involving the segmental and subsegment al pulmonary arteries cannot be excluded. 3. Status post gastric bypass. 4. Small hiatal hernia with concentric distal esophageal thickening. The esophagus is diffusely pat ulous and fluid-filled. Distal esophageal obstructing mass or benign stricture cannot be excluded. Recommend either endoscopy or barium contrast upper GI series for further evaluation. 5. Splenomegaly. Dictated by: Annie Martell MD, PhD on 05/28/2017 at 21:09 Approved by: Annie Martell MD, PhD on 05/28/2017 at 21:16
[2017-05-28] MEDS ORDERED: levoFLOXacin Inj 750 MG in IV Premix 1 EACH IV ONE (21:45)
[2017-05-28 21:50] LABS: APPEARANCE,URINE CLEAR (CLEAR,HAZY); COLOR,URINE YELLOW (YELLOW); OCCULT BLOOD,URINE NEGATIVE (NEGATIVE); UROBILINOGEN,URINE NORMAL (NORMAL)
[2017-05-28] MEDS ORDERED: Ketorolac 15 mg/mL Inj IVPUSH ONE (21:55)
[2017-05-28] MEDS ORDERED: oxyCODONE ER 20 mg ER12 Tablet PO SCH (22:05)
[2017-05-28] MEDS ORDERED: Vancomycin Inj 2,000 MG in 0.9% Sodium Chloride 500 ML IV ONE (22:17)
[2017-05-28] MEDS: oxyCODONE ER 10 mg ER12 Tablet PO SCH (22:54)
[2017-05-28 23:41] VITALS: BP 85/52; PULSE 99; RESP 22; O2SAT 96
[2017-05-28] MEDS ORDERED: Alum-Mag Hydrox-Simeth 30 mL Suspension PO PRN (23:50)
[2017-05-28] MEDS ORDERED: Polyethylene Glycol (PEG) 17 Gm Powder PO PRN (23:50)
[2017-05-29] MEDS ORDERED: 0.9% Sodium Chloride 1,000 ML IV ONE (00:05)
[2017-05-29 00:24] VITALS: BP 96/62; PULSE 87; RESP 18; O2SAT 95
[2017-05-29] MEDS ORDERED: Heparin 5,000 Unit/mL Inj SUBQ SCH (00:30)
[2017-05-29] MEDS: Sodium Chloride LOK Flush 10 mL Syringe IVFLUSH SCH ×3 (00:30→16:39)
[2017-05-29] MEDS: 0.9% Sodium Chloride 1,000 ML IV SCH ×2 (01:07→07:56)
[2017-05-29 01:21] LABS: Magnesium 1.7 mg/dL (1.6-2.6); Phosphorus 3.6 mg/dL (2.5-4.9)
--- NOTE | 2017-05-29 01:33 | PCM.HPMED ---
Subjective Date of Service May 28, 2017 Primary Provider: Admitting Physician: Primary Care Physician: Yessi Dallas MD Attending Physician: Admit Status: From the Emergency Department, Full Admit Chief Complaint: Dyspnea, productive cough with fever and chills. . History of Present Illness: Liliane Guzman is a 41-year-old woman with breast cancer currently on radiation, fibromyalgia, depression, and myoclonus who presents to [facility] emergency department with acute onset shortness of breath, fever, productive cough, chest and back pain that started this morning. She describes waking up with wheezing and a sensation of "drowning." She then used her albuterol nebulizer 2 with mild relief. She reports associated fever and chills with the highest temperature reading of 103.5F. She was diagnosed with pneumonia 2 weeks ago had a 3 day hospital stay discharged on azithromycin and cefuroxime at home. She was not able to take her last 2 doses as cefuroxime due to GI upset. She has had a productive cough since her pneumonia started 2 weeks ago and reports that it was improving until today. Her cough is productive of srivastava sputum. Her chest and back pain are described as a deep ache without radiation. She additionally endorses a mild headache, sinus pain and congestion. She denies vision changes, sore throat, abdominal pain, nausea, vomiting, dysuria, diarrhea, melena, or hematochezia. She does endorse chronic constipation. She has had no sick contacts. She does not use oxygen at home. Of note, she does occasionally choke while eating and endorses mild dysphagia. Vital signs in the ER: Temperature 38.6. Pulse 131. Respiratory rate 36. Blood pressure 126/77. Pulse ox 95% on room air. She was given in the ER: Oxycodone 30 mg, vancomycin with dosing per pharmacist, levofloxacin IV 750 mg 1, ketorolac IV 15 mg 1, Keppra IV 1000 mg 1, Zosyn IV 3.375 g 1, ondansetron IV 8 mg 1, diphenhydramine IV 50 mg 1 and 2 L of NS. PCP is Dr. Yessi Dallas. Oncologist Dr. Weber. . Review of Systems: A comprehensive review of systems was conducted with the patient and found to be negative except as above in the History of Present Illness. . Allergies Coded Allergies: Cantaloupe (Verified Allergy, Mild, 05/29/17) Makes ears itch Influenza Virus Vaccines (Verified Allergy, Unknown, 05/29/17) hydromorphone (Verified Allergy, Unknown, MAKES HER SICK, 05/29/17) meperidine (Verified Allergy, Unknown, IV - RUINS IV SITES, 05/29/17) metoclopramide (Verified Allergy, Unknown, MAKES HER FEEL LIKE SKIN CRAWLS BAD, 05/29/17) prochlorperazine (Verified Allergy, Unknown, 05/29/17) prochlorperazine edisylate (Verified Allergy, Unknown, 05/29/17) prochlorperazine maleate (Verified Allergy, Unknown, 05/29/17) promethazine (Verified Allergy, Unknown, 05/29/17) Uncoded Allergies: Honey Dew Melon (Allergy, Mild, 12/28/16) Makes ears itch Home Medications Albuterol 1-2 puffs inhaled every 4 hours as needed for shortness of breath. Ascorbic acid 250 mg daily. Baclofen 10 mg 4 times a day. Cetirizine 10 mg daily at bedtime. Colace 200 mg daily as needed for constipation. Diphenhydramine 25 mg 3 times a day as needed for pruritus. Doxepin 20 mg daily at bedtime. Duloxetine 60 mg daily. Ferrous sulfate 325 mg daily. Ibuprofen 600 mg 3 times a day as needed for pain. Keppra 1000 mg twice a day. Levothyroxine 112 g daily. Lyrica 50 mg 3 times a day. Nexium 40 mg daily. Ondansetron 8 mg 3 times a day as needed for nausea. Oxycodone 10 mg every 6 hours as needed for pain. OxyContin 30 mg twice a day. Simvastatin 40 mg daily at bedtime. Sumatriptan 100 mg as needed for migraine. . PMH 1. 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 2. Fibromyalgia. 3. Obstructive sleep apnea on CPAP. 4. IBS. 5. Hypothyroidism. 6. Nephrolithiasis. 7. History of pyelonephritis. 8. History of seizures on Keppra. 9. Asthma. 10. GERD. 11. Depression and anxiety. 12. Migraines. 13. Recent pneumonia. 14. Chronic pain with opiate habituation. 15. Hyperlipidemia. 16. Muscle spasticity on baclofen. 17. Insomnia. . Surgical History 1. Lithotripsy. 2. Breast reduction 2007. 3. Spinal chord stimulator 04/2015. 4. Gastric sleeve 2014. 5. R partial mastectomy. 6. Cholecystectomy. . Family History Father with hyperthyroidism. Mother with hypothyroidism. Two brothers who are healthy. . Social History Hx Alcohol Use: No Hx Substance Use: No Hx Tobacco Use: No Smoking Status: Never Smoker Additional Information The patient is single and has no children. She is a former [employer] 1-2 years. She also worked as an RN. . Exam Vital Signs Vital Sign - Last Date Time Temp Pulse Resp B/P Pulse Ox O2 Delivery O2 Flow Rate FiO2 05/28/17 19:25 112 05/28/17 17:39 38.6 36 126/77 95 Room Air Exam General: Middle-aged female lying in bed and in no acute distress, well- developed, well-nourished, appropriately interactive. HEENT: Normocephalic, atraumatic. External ears without defect. Pupils equal, round, and reactive to light. Anicteric sclerae, moist conjunctivae, and no lid lag. Oropharynx free of erythema and cobble stoning. Dry mucous membranes. Mild tenderness to palpation over maxillary sinus. Neck: Supple with full range of motion. No jugular venous distension. No bruits. No lymphadenopathy or thyromegaly. Cardiovascular: Regular rhythm, tachycardic without murmurs, rubs, or gallops appreciated. Pulmonary: Diminished breath sounds at left base. Clear to auscultation bilaterally without crackles, wheezes, or rhonchi. Normal respiratory effort with no use of accessory muscles. Abdomen: Soft, obese nontender, nondistended, bowel sounds present. No hepatosplenomegaly or masses appreciated. Extremities: No clubbing, cyanosis, or edema. Skin: Normal temperature, turgor, and texture; no rash, ulcers, or subcutaneous nodules appreciated. Neurological: Cranial nerves grossly intact. Normal muscle strength, tone, and bulk. Reflexes, coordination, and sensory function within normal limits. No known gait impairment. Psychiatric: Normal mood and affect. Alert and oriented to person, place, and time. . Lab and Diagnostics Labs Item Value Date Time Lactic Acid Level 2.0 mmol/L 05/28/171856 Calcium Level 8.9 mg/dL 05/28/171856 Total Bilirubin 0.6 mg/dL 05/28/171856 Aspartate Amino Transf (AST/SGOT) 106 U/L H 05/28/171856 Alanine Aminotransferase (ALT/SGPT) 54 U/L H 05/28/171856 Alkaline Phosphatase 161 U/L H 05/28/171856 Troponin T 0.010 ug/L 05/28/171856 Total Protein 6.8 g/dL 05/28/171856 Albumin 4.1 g/dL 05/28/171856 Procalcitonin 1.46 ng/mL H 05/28/171856 Result Diagram: 05/28/17185605/28/171856 Microbiology Blood cultures 2 pending. . X-Rays, CTs and MRIs X-RAY CHEST ONE VIEW, PORTABLE IMPRESSION: Left basilar opacity compatible atelectasis versus early pneumonia. Please correlate with clinical and laboratory findings. Dictated by: Annie Martell MD, PhD on 05/28/2017 at 18:12 CT ANGIO CHEST PULMONARY EMBOLISM IMPRESSION: 1. Study limited by suboptimal contrast opacification of the segmental and subsegmental pulmonary arteries. 2. No large central pulmonary embolus. Small pulmonary emboli involving the segmental and subsegmental pulmonary arteries cannot be excluded. 3. Status post gastric bypass. 4. Small hiatal hernia with concentric distal esophageal thickening. The esophagus is diffusely patulous and fluid-filled. Distal esophageal obstructing mass or benign stricture cannot be excluded. Recommend either endoscopy or barium contrast upper GI series for further evaluation. 5. Splenomegaly. Dictated by: Annie Martell MD, PhD on 05/28/2017 at 21:09 . 12-lead ECG EKG: Sinus tachycardia, heart rate 118, normal axis, prolonged QTC at 477 ms otherwise normal intervals, normal R-wave progression, no pathological Q waves or acute ischemic changes such as ST elevation or depression. . Assessment & Plan Liliane Guzman is a 41-year-old woman with breast cancer currently on radiation, fibromyalgia, depression, and myoclonus who presents to [facility] emergency department with acute onset shortness of breath, fever, productive cough, chest and back pain that started this morning. 1. Acute sepsis due to healthcare associated pneumonia, present on admission. Active. - Patient presented with shortness of breath, febrile (T 38.6), tachypnea (RR 36 ), and tachycardic (131) without leukocytosis. - Early goal-directed therapy met including: Broad-spectrum IV antibiotics and early fluid resuscitation. - Initial lactic acid normal at 2.0. 2. Acute left basilar healthcare associated pneumonia, present on admission. Active. - The patient presented with presented with shortness of breath, febrile (T 38.6), tachypnea (RR 36), and tachycardic (131) without leukocytosis. - The patient was recently hospitalized for community-acquired pneumonia 2016-05/05/2017. May be a component of aspiration pneumonia due to distal esophageal thickening as below. - Chest x-ray demonstrated Left basilar opacity compatible atelectasis versus early pneumonia, as above. - CTA did not demonstrate any central pulmonary emboli, as above - Blood cultures 2 pending. - Ordered complete pneumonia workup including: Blood cultures 2, sputum Gram stain and culture if obtainable, respiratory viral PCR, and strep pneumoniae and legionella urine antigens, pending. - Ordered MRSA screen, pending. - Placed patient in droplet isolation. - Initial pro-calcitonin elevated at 1.46. Continue to trend daily. - Received 2 L of NS in the ED. Ordered additional 1 L of NS then start IV maintenance fluids with NS at 100 mL/hr. - Received Zosyn, levofloxacin, and vancomycin. Continue Zosyn, levofloxacin ( likely can be discontinued once legionella results), and vancomycin with dosing per pharmacy. - Day team to consider infectious disease consult tomorrow morning. 3. Concentric distal esophageal thickening, acuity unknown, present on admission. Active. - Patient endorses mild dysphagia and infrequent choking while eating - CTA demonstrated small hiatal hernia with concentric distal esophageal thickening, esophagus is diffusely patulous and fluid-filled, distal esophageal obstructing mass or benign stricture cannot be excluded, as above. - Ordered speech therapy evaluation. - Ordered a modified barium swallow with distal follow through for tomorrow morning. - Day team to consider gastroenterology consult tomorrow morning. 4. Acute transaminitis, present on admission. Active. - Unclear etiology but likely secondary to acute sepsis. May also be from medications such as recent antibiotics. - Continue to monitor CMP daily. - Avoid toxic liver metabolites. Chronic problems: 5. Invasive right breast cancer, present on admission. Presumed stable. - Finished chemotherapy 02/2017 and currently undergoing radiation. - We will notify oncology and radiation oncology of patient's admission. Of note the patient did not receive radiation on 05/28/2017. 6. History of seizures, present on admission. Stable. - Continue Keppra 1000 mg twice a day. 7. Asthma, present on admission. Stable. - Ordered albuterol nebulizers every 4 hours as needed for shortness of breath. - Continue Cetirizine 10 mg daily at bedtime and diphenhydramine 25 mg 3 times a day as needed. 8. Chronic pain with opiate habituation, present on admission. Stable. - Continue OxyContin 30 mg twice a day and oxycodone 10 mg every 6 hours as needed for breakthrough pain. - Continue Lyrica 50 mg 3 times a day. - Continue spinal cord stimulator. - Continue Colace 200 mg daily as needed for opiate-induced constipation. 9. GERD, present on admission. Presumed stable. - Continue Protonix 40 mg daily. 10. Depression and anxiety, present on admission. Stable. - Continue duloxetine 60 mg daily. 11. Hyperlipidemia, present on admission. Stable. - Continue simvastatin 40 mg daily at bedtime. 12. Hypothyroidism present on admission. Stable. - Continue levothyroxine 112 g daily. 13. Migraines, not present on admission. Stable. - Continue sumatriptan 100 mg as needed for migraine. 14. Obstructive sleep apnea on CPAP, present on admission. Stable. - Recommended patient have CPAP brought in. 15. Muscle spasticity, present on admission. Stable. - Continue baclofen 10 mg 4 times a day. 16. Insomnia, present on admission. Stable. - Continue doxepin 20 mg at bedtime as needed. 17. Anemia present on admission. Stable. - Microcytic anemia which likely represents iron deficiency anemia and anemia of chronic disease. - Hold ferrous sulfate 325 mg daily due to acute infection. PRN antiemetics: Zofran and Maalox. PRN bowel regimen: Senna and MiraLAX. PRN analgesics: Tylenol. Patient is admitted under inpatient status with expected length of stay greater than 2 midnights due to severity of presenting symptoms, risk of adverse event, and complexity of treatment plan. . VTE Prophylaxis: Sub-Q Enoxaparin Resuscitation Status: DNR/DNI:Do Not Resuscitate/Intubate Attending Statement Patient has been seen and examined by myself with medical collector and agree with above history, physical, assessment and plan. copies to: Yessi Dallas MD; Kel Santiago MD; Scott Weber MD, Georgia M DO May 28, 2017 23:40 Alba Vaughn MD May 29, 2017 07:08
[2017-05-29] MEDS ORDERED: Albuterol 2.5 mg/3 mL Inhalation Solution NEB PRN (01:40)
--- NOTE | 2017-05-29 01:44 | PCM.CONPHA ---
Subjective Date of Service: May 29, 2017 Requesting Provider: Estela Cardenas DO Dyspnea, productive cough with fever and chills. . Reason for Pharmacy Consult: Vancomycin Dosing Objective Vital Signs Date Time Temp Pulse Resp B/P Pulse Ox O2 Delivery O2 Flow Rate FiO2 05/29/17 00:24 36.8 87 18 96/62 95 Room Air 05/29/17 00:22 37.5 99 22 85/52 96 Room Air 05/28/17 23:41 37.5 99 22 85/52 96 Room Air 05/28/17 19:25 112 05/28/17 17:39 38.6 131 36 126/77 95 Room Air Intake and Output 05/27/17 05/28/17 05/29/17 00:00 00:00 00:00 Intake Total 1997 ml Balance 1997 ml Weight (Kilograms): 101.200 Height (Feet): 5 Height (Inches): 4.00 Test 05/28/17 18:57 05/28/17 20:25 05/28/17 21:43 White Blood Count 4.5th/mm3 (3.8-10.1) Red Blood Count 3.85mil/mm3 (3.90-5.20) Hemoglobin 9.2g/dL (12.0-15.6) Hematocrit 29.1% (35.0-46.0) Mean Corpuscular Volume 75.6fL (81-100) Mean Corpuscular Hemoglobin 23.9pg (27.0-35.0) Mean Corpuscular Hemoglobin Concent 31.6% (32.0-37.0) Red Cell Distribution Width 14.9% (12.3-15.4) Platelet Count 179bil/L (150-400) Neutrophils (%) (Auto) 79.1% (40-74) Lymphocytes (%) (Auto) 8.8% (14-46) Monocytes (%) (Auto) 10.6% (4-12) Eosinophils (%) (Auto) 0.4% (0-5) Basophils (%) (Auto) 0.7% (0-3) D-Dimer 1.81mg/L FEU (<0.50) Sodium Level 140mEq/L (134-144) Potassium Level 3.7mEq/L (3.5-5.2) Chloride Level 103mEq/L (97-108) Carbon Dioxide Level 23mmol/L (18-29) Blood Urea Nitrogen 9mg/dL (6-24) Creatinine 0.83mg/dL (0.57-1.00) Estimat Glomerular Filtration Rate 107mL/min (>59) Glucose Level 111mg/dL (60-99) Lactic Acid Level 2.0mmol/L (0.4-2.0) Calcium Level 8.9mg/dL (8.5-10.1) Phosphorus Level 3.6mg/dL (2.5-4.9) Magnesium Level 1.7mg/dL (1.6-2.6) Total Bilirubin 0.6mg/dL (0.0-1.2) Aspartate Amino Transf (AST/SGOT) 106U/L (0-50) Alanine Aminotransferase (ALT/SGPT) 54U/L (0-32) Alkaline Phosphatase 161U/L (25-150) Troponin T 0.010ug/L (0.0-0.011) Total Protein 6.8g/dL (6.4-8.4) Albumin 4.1g/dL (3.4-5.0) Procalcitonin 1.46ng/mL (0.00-0.08) Hold Urine Received (Received) Urine Color Yellow (YELLOW) Urine Appearance Clear (CLEAR,HAZY) Urine pH 7.0 (5.0-8.0) Urine Specific Hume 1.005 (1.003-1.035) Urine Protein Negativemg/dL (NEG,TRACE) Urine Glucose (UA) Negativemg/dL (NEGATIVE) Urine Ketones Negativemg/dL (NEGATIVE) Urine Occult Blood Negative (NEGATIVE) Urine Nitrite Negative (NEGATIVE) Urine Bilirubin Negative (NEGATIVE) Urine Urobilinogen Normalmg/dL (NORMAL) Urine Leukocyte Esterase Negative (NEGATIVE) Urine RBC 0-2/hpf (0-2) Urine WBC 0-5/hpf (0-5) Urine Epithelial Cells Few/hpf (NONE-MOD) Urine Crystals None seen (NONE SEEN) Urine Bacteria Few/hpf (NONE-FEW) Urine Hyaline Casts None/lpf (NONE) Urine Granular Casts None seen (NONE SEEN) Urine Waxy Casts None seen (NONE SEEN) Urine Red Blood Cell Casts None seen (NONE SEEN) Urine White Blood Cell Casts None seen (NONE SEEN) Urine Mucus None seen (None Seen) Urine Trichomonas None seen (NONE SEEN) Urine Yeast None (NONE SEEN) Urinalysis Comment None Urine Culture Reflexed Not indicated Assessment/Plan Assessment/Plan A: * Vancomycin dosing by pharmacy for 41 y/o woman with healthcare associated pneumonia and sepsis * She was given 2000 mg of IV vancomycin in the ED * She is also being started on Levaquin and Zosyn * Estimated CrCl for this patient is 98 mL/min (Cockcroft & Gault using AdjBW) * Estimated vancomycin half-life is 8 hours and estimated volume of distribution if 67 liters P: * Start vancomycin 2000 mg IV every 12 hours * Target a vancomycin trough range of 15 - 20 mcg/mL * Draw a trough level prior to the fourth dose Thank you. Pharmacy will continue to follow this patient. Bing Cardozo May 29, 2017 01:44
--- NOTE | 2017-05-29 02:02 | NUR ---
Admit: Pt arrived around 0015 from ED via stretcher, no family at bedside. Pt AOx3, ambulated self to scale, BR and bed. C/o chronic general pain, did note some chest pain radiating to back which pt states is from fibromyalgia; aware. RA, no tele, cont pulse ox for MILLY, pt asked to have someone bring in CPAP. Placed on droplet precautions. Pt pleasant and cooperative with care. Addendum: 05/29/17 at 0619 by DAMON BAUER RN Home Medications: Home medications reviewed with patient using patient's memory; no list provided.
[2017-05-29] MEDS: Piperacillin-Tazo 3.375 Gm Inj 3.375 GM in Dextrose 5% Minibag Plus 50 ML IV SCH ×3 (02:16→17:36)
[2017-05-29] MEDS ORDERED: ASCO250T7 PO (02:39)
[2017-05-29] MEDS ORDERED: FERR325T40 PO (02:39)
[2017-05-29] MEDS: diphenhydrAMINE 25 mg Capsule PO PRN ×2 (04:04→09:04)
[2017-05-29 05:05] VITALS: BP 89/55; PULSE 76; RESP 18; O2SAT 95
[2017-05-29 05:50] LABS: BASOPHILS % (AUTO) 0.3 % (0-3); EOSINOPHILS % (AUTO) 1.7 % (0-5); MONOCYTES % (AUTO) 13.8 % (4-12); Mean Corpuscular Hemoglobin 23.5 pg (27.0-35.0); Mean Corpuscular Volume 77.4 fL (81-100); NEUTROPHILS % (AUTO) 64.5 % (40-74); Platelet Count 172 bil/L (150-400)
--- NOTE | 2017-05-29 05:56 | NUR ---
Pain: Pt c/o chronic generalized pain 04/23, medication administered; effective. Denied SOB, pleasant and cooperative with care.
--- NOTE | 2017-05-29 07:20 | NUR ---
0630 Med: Pt requested not to be woke up if she was sleeping for 0630 medications. Pt informed RN that if she felt she needed it she would let RN know.
[2017-05-29] MEDS: Pantoprazole 40 mg ER24 Tablet PO SCH (07:54)
[2017-05-29] MEDS: DULoxetine 30 mg DR Capsule PO SCH (07:54)
[2017-05-29] MEDS: oxyCODONE ER 10 mg ER12 Tablet PO SCH ×3 (07:55→21:09)
[2017-05-29] MEDS: levETIRAcetam 500 mg Tablet PO SCH ×2 (07:55→21:09)
[2017-05-29 08:00] VITALS: PULSE 81; RESP 18; O2SAT 96
[2017-05-29] MEDS ORDERED: Vancomycin Inj 2,000 MG in 0.9% Sodium Chloride 500 ML IV SCH (08:30)
[2017-05-29] MEDS ORDERED: Vancomycin Dose per Pharmacist XX SCH (08:30)
[2017-05-29 08:54] VITALS: BP 86/56; PULSE 80; RESP 24; O2SAT 98
--- NOTE | 2017-05-29 10:31 | NUR ---
Social Work-initial assessment: Data:See initial assessment. Pt is a 41 y/o female who was admitted on 05/28/17 for HCAP per H&P. Pt's insurance is [employer] and PCP is Yessi Dallas MD. EMR reviewed. SW met with pt at bedside, SW role explained. Pt is alert and oriented x3. Pt resides at home alone in [place] where she remains independent with ADLs. Pt drives and does not use any DME. Pt has no HH or SNF history. pt has no detention care insurance or VA benefits. SW discussed DPOA/ advanced directive, pt confirms this has been completed. Pt discussed in multidisciplinary rounds, no concerns noted around pt's capacity for self care per RN and MD. pt has been up independent in her room. SW provided pt with discharge planning checklist booklet and encouraged her to call with any questions, phone number provided. Pt confirms she has her car here to provide transport home. No anticipated discharge needs. SW will continue to follow if needs arise. Assessment:Pt who is independent at baseline. Plan:Pt to discharge home when medically stable via POV. No anticipated discharge needs. SW will continue to follow if needs arise. DEEPA Lozada Addendum: 05/29/17 at 1036 by ALYSSA STOCK Amended: Links added.
[2017-05-29 14:00] VITALS: BP 116/77; PULSE 97; RESP 20; O2SAT 96
--- NOTE | 2017-05-29 15:43 | NUR ---
Itching Patient had complaints of general all over itching. PO Benadryl was administered as ordered and requested. Patient continued to itch, but slightly less frequently. Patient continued to complain of itching and requested IV Benadryl. MD was notified after rounds and awaiting response.
--- NOTE | 2017-05-29 15:45 | DRSVH ---
PROCEDURE: X-RAY BARIUM SWALLOW WITH FOOD & VIDEOGRAPHY ([id number]) INDICATIONS: possible aspiration, distal look through if poss TECHNIQUE: Examination was conducted in conjunction with speech pathology per standard protocol. In the lateral projection, filming was performed of the patient swallowing. AP projection filming may also be performed with patient swallowing. COMPARISON: None. FINDINGS: Function: The oral preparatory phase appears normal, with proper containment. Flash penetration of th in liquids ingested via a straw. Otherwise the subsequent oral propulsive phase, pharyngeal phase, an d esophageal phase of swallowing also appear normal with all proffered substances. No laryngotrachea l penetration or aspiration. No pathologic vallecular pooling. Morphology: No cricopharyngeal bar is identified. No cervical esophageal webs. No Zenker's diverti culum. No strictures. IMPRESSION: Flash penetration with ingestion connected through a straw. Please refer to the speech pathology note for further evaluation. Dictated by: Obey Riddle M.D. on 05/29/2017 at 15:43 Approved by: Obey Riddle M.D. on 05/29/2017 at 15:44
[2017-05-29] MEDS ORDERED: diphenhydrAMINE 25 mg Capsule PO PRN (18:20)
[2017-05-29] MEDS ORDERED: Heparin 5,000 Unit/mL Inj IVPUSH PRN (20:20)
[2017-05-29] MEDS ORDERED: Heparin 5,000 Unit/mL Inj IVPUSH ONE (20:20)
[2017-05-29 20:47] VITALS: BP 98/64; PULSE 73; RESP 20; O2SAT 96
[2017-05-29] MEDS: Heparin 25K Unit/500mL 0.45 NS 25,000 UNIT in IV Premix 1 EACH IV SCH (21:30)
[2017-05-29] MEDS: levoFLOXacin Inj 750 MG in IV Premix 1 EACH IV SCH (22:08)
--- NOTE | 2017-05-29 22:08 | PCM.PNMED ---
Subjective Date of Service May 29, 2017 Subjective Patient is seen and examined. She states that she has already called her radiation clinic to let them know about her missed appointment on Sunday. She states this is her third pneumonia since her cancer diagnosis she does feel a bit short of breath. She is complaining of itching from vancomycin.. Exam Vital Signs Vital Sign - Last Date Time Temp Pulse Resp B/P Pulse Ox O2 Delivery O2 Flow Rate FiO2 05/29/17 08:54 36.5 80 24 86/56 98 Room Air Intake and Output 05/28/17 05/28/17 05/29/17 Cumulative From/Thru 15:00 23:00 07:00 05/28/17 17:39 - 05/29/17 06:24 Intake Total 999 ml 2265 ml 3264 ml Output Total 650 ml 650 ml Balance 999 ml 1615 ml 2614 ml Intake Oral 960 ml 960 ml IV Total 999 ml 1305 ml 2304 ml Output Urine Total 650 ml 650 ml Exam Gen.: Pleasant no Acute distress HEENT: Normocephalic atraumatic she is awaiting bandanna to cover her hair or scalp Heart: Regular rate and rhythm assessment murmurs Lungs: Clear to auscultation no crackles or wheezes Abdomen: Nontender nondistended Extremities: No edema MSK: Moving extremities without Neck: Negative for JVD, trachea central, no thyromegaly Psych: Negative for agitation Neuro no focal deficits IVs and Medications IV Fluids Discontinued Medications Reviewed: Medications were reviewed in detail Lab and Diagnostics Result Diagram: 05/29/17 0520 05/29/17 0520 Microbiology Blood cultures 2 pending. . X-Rays, CTs and MRIs X-RAY CHEST ONE VIEW, PORTABLE IMPRESSION: Left basilar opacity compatible atelectasis versus early pneumonia. Please correlate with clinical and laboratory findings. Dictated by: Annie Martell MD, PhD on 05/28/2017 at 18:12 CT ANGIO CHEST PULMONARY EMBOLISM IMPRESSION: 1. Study limited by suboptimal contrast opacification of the segmental and subsegmental pulmonary arteries. 2. No large central pulmonary embolus. Small pulmonary emboli involving the segmental and subsegmental pulmonary arteries cannot be excluded. 3. Status post gastric bypass. 4. Small hiatal hernia with concentric distal esophageal thickening. The esophagus is diffusely patulous and fluid-filled. Distal esophageal obstructing mass or benign stricture cannot be excluded. Recommend either endoscopy or barium contrast upper GI series for further evaluation. 5. Splenomegaly. Dictated by: Annie Martell MD, PhD on 05/28/2017 at 21:09 . 12-lead ECG EKG: Sinus tachycardia, heart rate 118, normal axis, prolonged QTC at 477 ms otherwise normal intervals, normal R-wave progression, no pathological Q waves or acute ischemic changes such as ST elevation or depression. . Assessment & Plan Liliane Guzman is a 41-year-old woman with breast cancer currently on radiation, fibromyalgia, depression, and myoclonus who presents to [facility] emergency department with acute onset shortness of breath, fever, productive cough, chest and back pain that started this morning. Acute sepsis due to healthcare associated pneumonia, present on admission. Active. - Patient presented with shortness of breath, febrile (T 38.6), tachypnea (RR 36 ), and tachycardic (131) without leukocytosis. - Early goal-directed therapy met including: Broad-spectrum IV antibiotics and early fluid resuscitation. - Initial lactic acid normal at 2.0. Acute left basilar healthcare associated pneumonia, present on admission. Active. - The patient presented with presented with shortness of breath, febrile (T 38.6), tachypnea (RR 36), and tachycardic (131) without leukocytosis. - The patient was recently hospitalized for community-acquired pneumonia 2016-05/05/2017. May be a component of aspiration pneumonia due to distal esophageal thickening as below. - Chest x-ray demonstrated Left basilar opacity compatible atelectasis versus early pneumonia, as above. - CTA did not demonstrate any central pulmonary emboli, as above - Blood cultures 2 pending. - sputum cultures showed rare gram-positive cocci, blood cultures are negative, urine strep pneumonia antigen negative, PCR negative, Legionella antigen negative - Initial pro-calcitonin elevated at 1.46-->1.70. Continue to trend every 2-3 days - Received 2 L of NS in the ED. Ordered additional 1 L of NS then start IV maintenance fluids with NS at 100 mL/hr. - Received Zosyn, levofloxacin, and vancomycin. Continue Zosyn, levofloxacin ( likely can be discontinued once legionella results), and vancomycin with dosing per pharmacy. - Discontinued vancomycin, MRSA PCR nares is negative, she is itching from it Acute pulmonary embolism, present on admission active -- As indicated by the CTA of chest, there is suspicion for this. -- Contacted Dr. Jenkins, who agreed with the plan to place patient on heparin drip, have discussed this with patient -- DVT/PE protocol heparin drip -- Touch base with the radiology again to see if she will need a follow-up CTA to clarify. May have to repeat the CTA prior to deciding and final treatment Concentric distal esophageal thickening, acuity unknown, present on admission. Active. - CTA demonstrated small hiatal hernia with concentric distal esophageal thickening, esophagus is diffusely patulous and fluid-filled, distal esophageal obstructing mass or benign stricture cannot be excluded, as above. - Patient denied trouble swallowing today. Please check with her again in the a.m. as she appears to have given her different account to the admitting team - Ordered speech therapy evaluation. - Modified barium swallow with distal follow through, results appear normal - Called gastroenterology, as patient can swallow currently Dr. Liriano feels she can be followed up as an outpatient Acute transaminitis, present on admission. Active. - Unclear etiology but likely secondary to acute sepsis. May also be from medications such as recent antibiotics. - Continue to monitor CMP daily. - Avoid toxic liver metabolites. Chronic problems: Invasive right breast cancer, present on admission. Presumed stable. - Finished chemotherapy 02/2017 and currently undergoing radiation. - We will notify oncology and radiation oncology of patient's admission. Of note the patient did not receive radiation on 05/28/2017. -- Unable to get through oncology answering service in the evening 05/29, try it again on 05/30 Myoclonus chronic stable. -- Patient said she does not have seizure disorder, she has myoclonus -- Continue Keppra 1000 mg twice a day. Asthma, present on admission. Stable. - Ordered albuterol nebulizers every 4 hours as needed for shortness of breath. - Continue Cetirizine 10 mg daily at bedtime and diphenhydramine 25 mg 3 times a day as needed. Chronic pain with opiate habituation, present on admission. Stable. - Continue OxyContin 30 mg twice a day and oxycodone 10 mg every 6 hours as needed for breakthrough pain. - Continue Lyrica 50 mg 3 times a day. - Continue spinal cord stimulator. - Continue Colace 200 mg daily as needed for opiate-induced constipation. GERD, present on admission. Presumed stable. - Continue Protonix 40 mg daily. Depression and anxiety, present on admission. Stable. - Continue duloxetine 60 mg daily. Hyperlipidemia, present on admission. Stable. - Continue simvastatin 40 mg daily at bedtime. Hypothyroidism present on admission. Stable. - Continue levothyroxine 112 g daily. Migraines, not present on admission. Stable. - Continue sumatriptan 100 mg as needed for migraine. Obstructive sleep apnea on CPAP, present on admission. Stable. - Recommended patient have CPAP brought in. Muscle spasticity, present on admission. Stable. - Continue baclofen 10 mg 4 times a day. Insomnia, present on admission. Stable. - Continue doxepin 20 mg at bedtime as needed. Anemia present on admission. Stable. - Microcytic anemia which likely represents iron deficiency anemia and anemia of chronic disease. - Hold ferrous sulfate 325 mg daily due to acute infection. PRN antiemetics: Zofran and Maalox. PRN bowel regimen: Senna and MiraLAX. PRN analgesics: Tylenol. High risk medications: Heparin drip Patient is admitted under inpatient status with expected length of stay greater than 2 midnights due to severity of presenting symptoms, risk of adverse event, and complexity of treatment plan. . Pain Evaluation: Adequate Pain Control VTE Prophylaxis: Sub-Q Enoxaparin VTE Mechanical Devices: Venous Foot Pump Resuscitation Status: DNR/DNI:Do Not Resuscitate/Intubate Time spent 30 minutes Yasmeen Garrett DO May 29, 2017 08:57
[2017-05-30] MEDS: Piperacillin-Tazo 3.375 Gm Inj 3.375 GM in Dextrose 5% Minibag Plus 50 ML IV SCH ×3 (00:44→15:57)
[2017-05-30] MEDS: Sodium Chloride LOK Flush 10 mL Syringe IVFLUSH SCH ×3 (00:45→15:58)
--- NOTE | 2017-05-30 03:38 | NUR ---
hep gtt heparin bolus given and heparin gtt started per MD order. no s/s of bleeding. 1st PTT was critically high. Repeat PTT was just drawn. will adjust heparin gtt per PTT results. Addendum: 05/30/17 at 0641 by CHIARA ESCAMILLA RN PTT now in goal range. Heparin gtt restarted at 18u/kg/hr. Guaiac x1 sent from small hard, formed stool; pt c/o constipation, 1 Zelalem given per pt's request.
[2017-05-30 04:40] VITALS: PULSE 85; RESP 18; O2SAT 97
[2017-05-30 04:56] VITALS: BP 95/62; PULSE 84; RESP 20; O2SAT 97
[2017-05-30 08:00] VITALS: PULSE 93; RESP 18; O2SAT 100
[2017-05-30] MEDS: oxyCODONE ER 10 mg ER12 Tablet PO SCH ×5 (08:00→21:31)
[2017-05-30] MEDS ORDERED: Vancomycin Serum Trough XX ONE (08:00)
[2017-05-30] MEDS: DULoxetine 30 mg DR Capsule PO SCH (08:01)
[2017-05-30] MEDS: levETIRAcetam 500 mg Tablet PO SCH ×2 (08:01→21:31)
[2017-05-30] MEDS: diphenhydrAMINE 25 mg Capsule PO PRN (08:01)
[2017-05-30] MEDS: Pantoprazole 40 mg ER24 Tablet PO SCH (08:01)
--- NOTE | 2017-05-30 11:53 | NUR ---
Social Work-readiness for discharge: Data:EMR reviewed. Pt is on day 2 of hospitalization for HCAP per H&P. Pt is not medically stable anticipate 1-2 more days. Pt resides at home alone and has been up independent in her room. No concerns around pt's capacity for self care per RN or MD. SW confirmed plan with pt.No discharge needs identified. SW will continue to follow if needs arise. Assessment:pt who is independent at baseline. Plan:Pt to discharge home when medically stable via POV. No discharge needs identified. SW will continue to follow if needs arise. DEEPA Lozada
--- NOTE | 2017-05-30 13:19 | PCM.PNMED ---
Subjective Date of Service May 30, 2017 Subjective Pt started on Heparin gtt for PE. No evidence of bleeding. Exam Vital Signs Vital Sign - Last Date Time Temp Pulse Resp B/P Pulse Ox O2 Delivery O2 Flow Rate FiO2 05/30/17 08:00 93 18 100 Room Air 05/30/17 04:56 36.6 95/62 Intake and Output 05/29/17 05/29/17 05/30/17 Cumulative From/Thru 15:00 23:00 07:00 05/28/17 17:39 - 05/30/17 05:49 Intake Total 2205 ml 908 ml 6377 ml Output Total 4680 ml 1000 ml 6330 ml Balance -2475 ml -92 ml 47 ml Intake Oral 1100 ml 480 ml 2540 ml IV Total 1105 ml 428 ml 3837 ml Output Urine Total 4680 ml 1000 ml 6330 ml Exam Gen.: Pleasant no Acute distress HEENT: Normocephalic atraumatic she is awaiting bandanna to cover her hair or scalp Heart: Regular rate and rhythm assessment murmurs Lungs: Clear to auscultation no crackles or wheezes Abdomen: Nontender nondistended Extremities: No edema MSK: Moving extremities without Neck: Negative for JVD, trachea central, no thyromegaly Psych: Negative for agitation Neuro no focal deficits IVs and Medications Medications Reviewed: Medications were reviewed in detail Lab and Diagnostics Result Diagram: 05/29/17 0520 05/30/17 0220 Microbiology Blood cultures 2 pending. . X-Rays, CTs and MRIs X-RAY CHEST ONE VIEW, PORTABLE IMPRESSION: Left basilar opacity compatible atelectasis versus early pneumonia. Please correlate with clinical and laboratory findings. Dictated by: Annie Martell MD, PhD on 05/28/2017 at 18:12 CT ANGIO CHEST PULMONARY EMBOLISM IMPRESSION: 1. Study limited by suboptimal contrast opacification of the segmental and subsegmental pulmonary arteries. 2. No large central pulmonary embolus. Small pulmonary emboli involving the segmental and subsegmental pulmonary arteries cannot be excluded. 3. Status post gastric bypass. 4. Small hiatal hernia with concentric distal esophageal thickening. The esophagus is diffusely patulous and fluid-filled. Distal esophageal obstructing mass or benign stricture cannot be excluded. Recommend either endoscopy or barium contrast upper GI series for further evaluation. 5. Splenomegaly. Dictated by: Annie Martell MD, PhD on 05/28/2017 at 21:09 . 12-lead ECG EKG: Sinus tachycardia, heart rate 118, normal axis, prolonged QTC at 477 ms otherwise normal intervals, normal R-wave progression, no pathological Q waves or acute ischemic changes such as ST elevation or depression. . Assessment & Plan Liliane Guzman is a 41-year-old woman with breast cancer currently on radiation, fibromyalgia, depression, and myoclonus who presents to [facility] emergency department with acute onset shortness of breath, fever, productive cough, chest and back pain that started this morning. Acute sepsis due to healthcare associated pneumonia, present on admission. Active. - Patient presented with shortness of breath, febrile (T 38.6), tachypnea (RR 36 ), and tachycardic (131) without leukocytosis. - Broad-spectrum IV antibiotics and early fluid resuscitation. Started on Vancomycin, Zosyn, Levofloxacin. - MRSA negative, vanco dc/d. Procalcitonin 1.7. - IV maintenance fluids with NS at 100 mL/hr. Acute left basilar healthcare associated pneumonia, present on admission. Active. - The patient presented with presented with shortness of breath, febrile (T 38.6), tachypnea (RR 36), and tachycardic (131) without leukocytosis. - The patient was recently hospitalized for community-acquired pneumonia 2016-05/05/2017. May be a component of aspiration pneumonia due to distal esophageal thickening as below. - Chest x-ray demonstrated Left basilar opacity compatible atelectasis versus early pneumonia, as above. - CTA did not comment on pneumonia or infiltrate. - Blood cultures- NGTD. Viral Panel- neg. Strep Ag- neg. MRSA- neg. Sputum- NGTD. - Initial pro-calcitonin elevated at 1.46-->1.70. Continue to trend every 2-3 days - Discontinued vancomycin, MRSA PCR nares is negative. Acute pulmonary embolism, present on admission active -- As indicated by the CTA of chest, can't rule out subsegmental Pulm Embolism. -- Contacted Dr. Jenkins, who agreed with the plan to place patient on heparin drip, have discussed this with patient -- DVT/PE protocol heparin drip -- Touch base with the radiology again to see if she will need a follow-up CTA to clarify. May have to repeat the CTA prior to deciding on final treatment Concentric distal esophageal thickening, acuity unknown, present on admission. Active. - CTA demonstrated small hiatal hernia with concentric distal esophageal thickening, esophagus is diffusely patulous and fluid-filled, distal esophageal obstructing mass or benign stricture cannot be excluded, as above. - Patient denied trouble swallowing - speech therapy evaluation- Modified barium swallow with distal follow through , results appear normal - Called gastroenterology, as patient can swallow currently Dr. Liriano feels she can be followed up as an outpatient Anemia of chronic disease present on admission. Stable. - Microcytic anemia which likely represents iron deficiency anemia and anemia of chronic disease. - Hold ferrous sulfate 325 mg daily due to acute infection. -- H&H dropped today to 7.7, consider transfusion if it is below 7 -- She is also now on heparin drip, monitor carefully Acute transaminitis, present on admission. Active. - Unclear etiology but likely secondary to acute sepsis. May also be from medications such as recent antibiotics. - Continue to monitor CMP daily. - Avoid toxic liver metabolites. Chronic problems: Invasive right breast cancer, present on admission. Presumed stable. - Finished chemotherapy 02/2017 and currently undergoing radiation. - We will notify oncology and radiation oncology of patient's admission. Of note the patient did not receive radiation on 05/28/2017. Myoclonus chronic stable. -- Patient said she does not have seizure disorder, she has myoclonus -- Continue Keppra 1000 mg twice a day. Asthma, present on admission. Stable. - Ordered albuterol nebulizers every 4 hours as needed for shortness of breath. - Continue Cetirizine 10 mg daily at bedtime and diphenhydramine 25 mg 3 times a day as needed. Chronic pain with opiate habituation, present on admission. Stable. - Continue OxyContin 30 mg twice a day and oxycodone 10 mg every 6 hours as needed for breakthrough pain. - Continue Lyrica 50 mg 3 times a day. - Continue spinal cord stimulator. - Continue Colace 200 mg daily as needed for opiate-induced constipation. GERD, present on admission. Presumed stable. - Continue Protonix 40 mg daily. Depression and anxiety, present on admission. Stable. - Continue duloxetine 60 mg daily. Hyperlipidemia, present on admission. Stable. - Continue simvastatin 40 mg daily at bedtime. Hypothyroidism present on admission. Stable. - Continue levothyroxine 112 g daily. Migraines, not present on admission. Stable. - Continue sumatriptan 100 mg as needed for migraine. Obstructive sleep apnea on CPAP, present on admission. Stable. - Recommended patient have CPAP brought in. Muscle spasticity, present on admission. Stable. - Continue baclofen 10 mg 4 times a day. Insomnia, present on admission. Stable. - Continue doxepin 20 mg at bedtime as needed. PRN antiemetics: Zofran and Maalox. PRN bowel regimen: Senna and MiraLAX. PRN analgesics: Tylenol. High risk medications: Heparin drip Patient is admitted under inpatient status with expected length of stay greater than 2 midnights due to severity of presenting symptoms, risk of adverse event, and complexity of treatment plan. . VTE Prophylaxis: Other (heparin gtt) VTE Mechanical Devices: Venous Foot Pump Resuscitation Status: DNR/DNI:Do Not Resuscitate/Intubate Sukh Villa MD May 30, 2017 13:19 Resuscitation Status: DNR/DNI:Do Not Resuscitate/Intubate Sukh Villa MD May 30, 2017 13:19
[2017-05-30] MEDS: Heparin 25K Unit/500mL 0.45 NS 25,000 UNIT in IV Premix 1 EACH IV SCH (14:35)
--- NOTE | 2017-05-30 14:48 | NUR ---
Pre-medicate for CT angio Patient had order for repeat CT angio. Patient informed nurse she needed to pre premedicated with Benadryl and Zofran before procedure. MD notified and order for one time dose of 50mg IV push Benadryl was ordered.
[2017-05-30 16:17] LABS: BASOPHILS % (AUTO) 0.5 % (0-3); EOSINOPHILS % (AUTO) 10.8 % (0-5); MONOCYTES % (AUTO) 10.8 % (4-12); NEUTROPHILS % (AUTO) 50.9 % (40-74); Platelet Count 165 bil/L (150-400)
[2017-05-30] MEDS: Ondansetron 2 mg/mL 2 mL Inj IVPUSH PRN (16:57)
[2017-05-30 17:38] VITALS: BP 121/80; PULSE 86; O2SAT 97
--- NOTE | 2017-05-30 17:44 | DRSVH ---
PROCEDURE: CT ANGIO CHEST PULMONARY EMBOLISM ([id number]) INDICATIONS: Pulmonary Embolism rule out TECHNIQUE: After the administration of intravenous contrast, 2 mm thick sections acquired from the pulmonary api felipe to the posterior costophrenic angles. 3-dimensional maximum intensity projection (MIP) coronal a nd sagittal reformats were then acquired through the thorax. For radiation dose reduction, the follo wing was used: automated exposure control, adjustment of mA and/or kV according to patient size. COMPARISON: [facility], CT, CT ANGIO CHEST PE, 05/03/2017, 12:29. [facility] , CT, CT ANGIO CHEST PE, 05/28/2017, 20:56. FINDINGS: Image quality: Excellent. Pulmonary arteries: Pulmonary arteries are normal in size, and demonstrate no intraluminal filling d efects to suggest central pulmonary embolism. Lungs and pleura: Small, patchy airspace opacities in the left lung base have decreased in size and number in interval since prior CT scan obtained 05/28/17. New, patchy groundglass opacities have deve loped in the right upper lobe in the interval since the prior CT scan. No pleural effusions or pneum othorax. Central and peripheral airways are patent. Mediastinum: Heart size is normal, without pericardial effusion. No mediastinal or hilar adenopathy . Thoracic aorta is normal in caliber and enhancement. Patulous esophagus is again noted. Bones and chest wall: Surgical clips noted in the right breast. No suspicious bony lesions. Ribs an d thoracic spine appear intact throughout. Presence of neurostimulator leads noted in the thoracic sp ine. Thyroid gland is within normal limits where visualized. No axillary or supraclavicular adenopat hy. Abdomen: Patient status post gastric bypass. Visualized spleen is enlarged, but stable compared to prior exams. The gallbladder surgically absent. Visualized upper abdominal solid organs appear norm al in the early arterial phase of enhancement. IMPRESSION: 1. No pulmonary embolus. 2. Small, patchy alveolar opacities in the posterior left lung base decreased in size and number com pared to 05/28/17. Few new, scattered, groundglass opacities have developed in the right upper lobe w hich is a nonspecific finding, but may represent pneumonia. Dictated by: Annie Martell MD, PhD on 05/30/2017 at 17:39 Approved by: Annie Martell MD, PhD on 05/30/2017 at 17:43
[2017-05-30 21:14] VITALS: BP 95/65; PULSE 87; RESP 18; O2SAT 97
[2017-05-30] MEDS: levoFLOXacin Inj 750 MG in IV Premix 1 EACH IV SCH (21:32)
[2017-05-31] MEDS: Piperacillin-Tazo 3.375 Gm Inj 3.375 GM in Dextrose 5% Minibag Plus 50 ML IV SCH ×3 (00:42→16:13)
[2017-05-31] MEDS: Sodium Chloride LOK Flush 10 mL Syringe IVFLUSH SCH ×3 (00:42→15:54)
--- NOTE | 2017-05-31 03:58 | NUR ---
respiratory Pt reports slight SOB still with exertion. independent in the room; gait steady. Scheduled Oxycontin and PRN oxycodone given for 810 generalized pain with good relief. slept most of the night. hourly rounding done.
[2017-05-31 04:57] VITALS: BP 84/55; PULSE 79; RESP 18; O2SAT 96
[2017-05-31 05:18] VITALS: PULSE 88; RESP 18; O2SAT 99
[2017-05-31 07:37] LABS: BASOPHILS % (AUTO) 1.6 % (0-3); EOSINOPHILS % (AUTO) 9.4 % (0-5); MONOCYTES % (AUTO) 13.6 % (4-12); Mean Corpuscular Hemoglobin 23.7 pg (27.0-35.0); Mean Corpuscular Volume 78.2 fL (81-100); NEUTROPHILS % (AUTO) 51.8 % (40-74); Platelet Count 191 bil/L (150-400)
[2017-05-31] MEDS: levETIRAcetam 500 mg Tablet PO SCH ×2 (08:05→20:31)
[2017-05-31] MEDS: oxyCODONE ER 10 mg ER12 Tablet PO SCH ×2 (08:06→20:32)
[2017-05-31] MEDS: Pantoprazole 40 mg ER24 Tablet PO SCH (08:08)
[2017-05-31] MEDS: DULoxetine 30 mg DR Capsule PO SCH (08:08)
[2017-05-31] MEDS: 0.9% Sodium Chloride 1,000 ML IV SCH ×2 (08:15→16:13)
--- NOTE | 2017-05-31 10:13 | PCM.PNMED ---
Subjective Date of Service May 31, 2017 Subjective Pt reports SOB and Productive Cough overnight. Denies fever/chills. Exam Vital Signs Vital Sign - Last Date Time Temp Pulse Resp B/P Pulse Ox O2 Delivery O2 Flow Rate FiO2 05/31/17 05:18 88 18 99 Room Air 05/31/17 04:57 36.3 84/55 Intake and Output 05/30/17 05/30/17 05/31/17 Cumulative From/Thru 15:00 23:00 07:00 05/28/17 17:39 - 05/30/17 18:19 Intake Total 1476 ml 7853 ml Output Total 2150 ml 8480 ml Balance -674 ml -627 ml Intake Oral 920 ml 3460 ml IV Total 556 ml 4393 ml Output Urine Total 2150 ml 8480 ml # Bowel Movements 1 1 Exam Gen.: Pleasant, no Acute distress. +Cough HEENT: Normocephalic atraumatic she is awaiting bandanna to cover her hair or scalp Heart: Regular rate and rhythm assessment murmurs Lungs: Dec BS Left Base, No wheeze. Abdomen: Nontender nondistended Extremities: No edema MSK: Moving extremities without Neck: Negative for JVD, trachea central, no thyromegaly Psych: Negative for agitation Neuro no focal deficits IVs and Medications Medications Reviewed: Medications were reviewed in detail Lab and Diagnostics Result Diagram: 05/31/17 0719 05/31/17 0702 Microbiology Blood cultures 2 pending. . X-Rays, CTs and MRIs 05/31- CTA Chest PE- 1. No pulmonary embolus. 2. Small, patchy alveolar opacities in the posterior left lung base decreased in size and number compared to 05/28/17. Few new, scattered, groundglass opacities have developed in the right upper lobe which is a nonspecific finding , but may represent pneumonia. X-RAY CHEST ONE VIEW, PORTABLE IMPRESSION: Left basilar opacity compatible atelectasis versus early pneumonia. Please correlate with clinical and laboratory findings. Dictated by: Annie Martell MD, PhD on 05/28/2017 at 18:12 CT ANGIO CHEST PULMONARY EMBOLISM IMPRESSION: 1. Study limited by suboptimal contrast opacification of the segmental and subsegmental pulmonary arteries. 2. No large central pulmonary embolus. Small pulmonary emboli involving the segmental and subsegmental pulmonary arteries cannot be excluded. 3. Status post gastric bypass. 4. Small hiatal hernia with concentric distal esophageal thickening. The esophagus is diffusely patulous and fluid-filled. Distal esophageal obstructing mass or benign stricture cannot be excluded. Recommend either endoscopy or barium contrast upper GI series for further evaluation. 5. Splenomegaly. Dictated by: Annie Martell MD, PhD on 05/28/2017 at 21:09 . 12-lead ECG EKG: Sinus tachycardia, heart rate 118, normal axis, prolonged QTC at 477 ms otherwise normal intervals, normal R-wave progression, no pathological Q waves or acute ischemic changes such as ST elevation or depression. . Assessment & Plan Liliane Guzman is a 41-year-old woman with breast cancer currently on radiation, fibromyalgia, depression, and myoclonus who presents to [facility] emergency department with acute onset shortness of breath, fever, productive cough, chest and back pain that started this morning. Acute sepsis due to healthcare associated pneumonia, present on admission. Active. - Patient presented with shortness of breath, febrile (T 38.6), tachypnea (RR 36 ), and tachycardic (131) without leukocytosis. - Broad-spectrum IV antibiotics and early fluid resuscitation. Started on Vancomycin, Zosyn, Levofloxacin. - MRSA negative, vanco dc/d. Procalcitonin 1.7. - IV maintenance fluids with NS at 100 mL/hr. Acute left basilar healthcare associated pneumonia, present on admission. Active. - The patient presented with presented with shortness of breath, febrile (T 38.6), tachypnea (RR 36), and tachycardic (131) without leukocytosis. - The patient was recently hospitalized for community-acquired pneumonia 2016-05/05/2017. May be a component of aspiration pneumonia due to distal esophageal thickening as below. - Chest x-ray demonstrated Left basilar opacity compatible atelectasis versus early pneumonia, as above. - 05/31- CTA Chest PE- No pulmonary embolus. Small, patchy alveolar opacities in the posterior left lung base decreased in size and number compared to . Few new, scattered, groundglass opacities have developed in the right upper lobe which is a nonspecific finding, but may represent pneumonia. - Blood cultures- NGTD. Viral Panel- neg. Strep Ag- neg. MRSA- neg. Sputum- NGTD. - Initial pro-calcitonin elevated at 1.46-->1.70. Continue to trend every 2-3 days - Discontinued vancomycin, MRSA PCR nares is negative. Acute pulmonary embolism, present on admission, ruled out. Repeat 05/31- CTA Chest PE- No pulmonary embolus. -- As indicated by the CTA of chest, can't rule out subsegmental Pulm Embolism. -- Contacted Dr. Jenkins, who agreed with the plan to place patient on heparin drip, have discussed this with patient -- radiology again to see if she will need a follow-up CTA to clarify. May have to repeat the CTA prior to deciding on final treatment Concentric distal esophageal thickening, acuity unknown, present on admission. Active. - CTA demonstrated small hiatal hernia with concentric distal esophageal thickening, esophagus is diffusely patulous and fluid-filled, distal esophageal obstructing mass or benign stricture cannot be excluded, as above. - Patient denied trouble swallowing - speech therapy evaluation- Modified barium swallow with distal follow through , results appear normal - Called gastroenterology, as patient can swallow currently Dr. Liriano feels she can be followed up as an outpatient Anemia of chronic disease present on admission. Stable. - Microcytic anemia which likely represents iron deficiency anemia and anemia of chronic disease. - Hold ferrous sulfate 325 mg daily due to acute infection. -- H&H dropped today to 7.7, consider transfusion if it is below 7 -- She is also now on heparin drip, monitor carefully Acute transaminitis, present on admission. Active. - Unclear etiology but likely secondary to acute sepsis. May also be from medications such as recent antibiotics. - Continue to monitor CMP daily. - Avoid toxic liver metabolites. Chronic problems: Invasive right breast cancer, present on admission. Presumed stable. - Finished chemotherapy 02/2017 and currently undergoing radiation. - We will notify oncology and radiation oncology of patient's admission. Of note the patient did not receive radiation on 05/28/2017. Myoclonus chronic stable. -- Patient said she does not have seizure disorder, she has myoclonus -- Continue Keppra 1000 mg twice a day. Asthma, present on admission. Stable. - Ordered albuterol nebulizers every 4 hours as needed for shortness of breath. - Continue Cetirizine 10 mg daily at bedtime and diphenhydramine 25 mg 3 times a day as needed. Chronic pain with opiate habituation, present on admission. Stable. - Continue OxyContin 30 mg twice a day and oxycodone 10 mg every 6 hours as needed for breakthrough pain. - Continue Lyrica 50 mg 3 times a day. - Continue spinal cord stimulator. - Continue Colace 200 mg daily as needed for opiate-induced constipation. GERD, present on admission. Presumed stable. - Continue Protonix 40 mg daily. Depression and anxiety, present on admission. Stable. - Continue duloxetine 60 mg daily. Hyperlipidemia, present on admission. Stable. - Continue simvastatin 40 mg daily at bedtime. Hypothyroidism present on admission. Stable. - Continue levothyroxine 112 g daily. Migraines, not present on admission. Stable. - Continue sumatriptan 100 mg as needed for migraine. Obstructive sleep apnea on CPAP, present on admission. Stable. - Recommended patient have CPAP brought in. Muscle spasticity, present on admission. Stable. - Continue baclofen 10 mg 4 times a day. Insomnia, present on admission. Stable. - Continue doxepin 20 mg at bedtime as needed. PRN antiemetics: Zofran and Maalox. PRN bowel regimen: Senna and MiraLAX. PRN analgesics: Tylenol. High risk medications: Heparin drip Patient is admitted under inpatient status with expected length of stay greater than 2 midnights due to severity of presenting symptoms, risk of adverse event, and complexity of treatment plan. . VTE Prophylaxis: Other (heparin gtt) VTE Mechanical Devices: Venous Foot Pump Resuscitation Status: DNR/DNI:Do Not Resuscitate/Intubate Sukh Villa MD May 31, 2017 10:13
[2017-05-31 16:30] VITALS: BP 95/67; PULSE 97; RESP 18; O2SAT 95
--- NOTE | 2017-05-31 18:41 | NUR ---
Pain Oxycontin 30 mg BID and and 10 mg oxycodone Q 6 hrs given for generalized pain 8/10 on pain scale, pt reports pain level decreased to 6/10 ,which is tolerable for pt. Pt reports resolution of sinus pain with administration of Pseudafed this AM. Call light in reach, will continue to monitor.
[2017-05-31 20:19] VITALS: BP 103/70; PULSE 86; RESP 18; O2SAT 98
[2017-06-01] MEDS: Piperacillin-Tazo 3.375 Gm Inj 3.375 GM in Dextrose 5% Minibag Plus 50 ML IV SCH ×3 (00:05→16:35)
--- NOTE | 2017-06-01 00:12 | PROG NOTE ---
[address] [address] PROGRESS NOTE PATIENT: MATTHEW PALOMARES : 1975 MR#: [id number] ADMIT: 05/28/2017 JOB ID: [id number] DATE: 05/31/2017 INPATIENT MEDICAL ONCOLOGY PROGRESS REPORT: HISTORY OF PRESENT ILLNESS: The patient is a pleasant 41-year-old female with multiple chronic comorbid conditions including fibromyalgia, chronic pain, chronic depression, generalized anxiety disorder, myoclonus, hypothyroidism, migraine, degenerative spine disease and recent diagnosis of stage IA ER positive breast cancer with a high a risk Oncotype DX recurrence score. She was treated with partial mastectomy with axillary sentinel lymph node biopsy in October 2016, followed by four cycles of TC chemotherapy, and adjuvant breast radiotherapy. She was admitted to hospital a month ago with an episode of community-acquired pneumonia. She is readmitted with recurrent pneumonia associated with sepsis syndrome. She woke up two days ago with high fever, 103.5, chills, productive cough, chest and back pain, and dyspnea. At the emergency department, she was febrile with temperature 38.6, tachycardic and tachypneic. Blood pressure was normal. She has been started on vancomycin, levofloxacin and Zosyn. Given negative MRSA screen, vancomycin has been stopped. Blood cultures have been negative so far after two days. Viral respiratory panel was negative. She has been afebrile since admission. She had a CT chest angiogram on May 28 which was an inadequate study, and had a repeat CT chest angiogram yesterday, May 30. This shows patchy alveolar opacities in posterior left lung base and a few new scattered ground-glass opacities in right upper lobe. A modified barium swallow study was done two days ago and that shows flash penetration with thin liquids. Currently, she is still somewhat ill, but gradually starting to feel better. She is still having cough with turbid sputum. She does not feel dyspneic at rest. OBJECTIVE: Awake, alert and oriented x3. Vital signs have normalized, although she has been mostly hypotensive during this admission. LABORATORIES: Chemistry is completely normal. Procalcitonin is trending down. Leukocyte count has dropped to 1900 with 52% neutrophils. Hemoglobin is low at 8.4. IMPRESSION AND RECOMMENDATIONS: This is the second or third episode of pneumonia in this young woman over the past two months. This episode of pneumonia is especially severe and associated with sepsis syndrome. Her modified barium swallow study does show flash penetration with thin liquids, and I suspect these are episodes of aspiration pneumonia. I think it is important to repeat this swallow study after about a month and see if her swallowing dysfunction persists. It is not clear why she would aspirate given that she does not have any central nervous system disease, prior stroke or known laryngeal dysfunction. Nonetheless, she has been advised to avoid drinking thin liquids by straw, and she would follow that. Her leukopenia is related to antibiotics and sepsis syndrome. As long as absolute neutrophil count is over 500, G-CSF is not recommended. Even if it drops under 500, but quickly reverses, I would not use G-CSF. I would consider stopping the Zosyn if tomorrow her neutrophil count continues to drop. I think one alternative antibiotic regimen for her recurrent aspiration pneumonia could be a combination of clindamycin and levofloxacin to complete a 10-14 day course of antibiotic therapy.
[2017-06-01] MEDS: Sodium Chloride LOK Flush 10 mL Syringe IVFLUSH SCH ×3 (00:30→16:30)
[2017-06-01 04:01] VITALS: PULSE 101; RESP 18; O2SAT 99
[2017-06-01 04:47] VITALS: BP 87/60; PULSE 77; RESP 18; O2SAT 96
[2017-06-01 06:12] LABS: BASOPHILS % (AUTO) 1.1 % (0-3); MONOCYTES % (AUTO) 12.2 % (4-12); Mean Corpuscular Hemoglobin 24.1 pg (27.0-35.0); Mean Corpuscular Volume 77.8 fL (81-100); NEUTROPHILS % (AUTO) 51.6 % (40-74); Platelet Count 190 bil/L (150-400)
[2017-06-01] MEDS: 0.9% Sodium Chloride 1,000 ML IV SCH ×2 (06:16→16:35)
--- NOTE | 2017-06-01 06:31 | NUR ---
Pain c/o chronic pain throughout shift. Prn oxycodone and routine oxycontin administered and patient states pain is tolerable. Currently resting without complaints.
[2017-06-01] MEDS: levETIRAcetam 500 mg Tablet PO SCH ×2 (07:57→20:32)
[2017-06-01] MEDS: DULoxetine 30 mg DR Capsule PO SCH (07:57)
[2017-06-01] MEDS: oxyCODONE ER 10 mg ER12 Tablet PO SCH ×2 (07:57→20:33)
[2017-06-01] MEDS: Pantoprazole 40 mg ER24 Tablet PO SCH (07:58)
[2017-06-01 12:00] VITALS: BP 104/65; PULSE 84; RESP 14; O2SAT 94
[2017-06-01] MEDS: Ondansetron 2 mg/mL 2 mL Inj IVPUSH PRN (12:33)
--- NOTE | 2017-06-01 12:55 | PCM.PNMED ---
Subjective Date of Service Jun 01, 2017 Subjective Pt reports continue cough/sob. Denies fever/chills. Ambulating wo assistance. Exam Vital Signs Vital Sign - Last Date Time Temp Pulse Resp B/P Pulse Ox O2 Delivery O2 Flow Rate FiO2 06/01/17 04:47 36.7 77 18 87/60 96 Room Air Intake and Output 05/31/17 05/31/17 06/01/17 Cumulative From/Thru 15:00 23:00 07:00 05/28/17 17:39 - 06/01/17 06:38 Intake Total 340 ml 411 ml 1673 ml 24510 ml Output Total 1900 ml 2500 ml 60032 ml Balance -1560 ml 411 ml -827 ml -2603 ml Intake Oral 340 ml 572 ml 4372 ml IV Total 411 ml 1101 ml 5905 ml Output Urine Total 1900 ml 2500 ml 71800 ml # Bowel Movements 1 Exam Gen.: Pleasant, no Acute distress. HEENT: Normocephalic atraumatic she is awaiting bandanna to cover her hair or scalp Heart: Regular rate and rhythm assessment murmurs Lungs: Dec BS Left Base, No wheeze. Abdomen: Nontender nondistended Extremities: No edema MSK: Moving extremities without Neck: Negative for JVD, trachea central, no thyromegaly Psych: Negative for agitation Neuro no focal deficits IVs and Medications Medications Reviewed: Medications were reviewed in detail Lab and Diagnostics Result Diagram: 06/01/17 0523 05/31/17 0702 Microbiology Blood cultures 2 pending. . X-Rays, CTs and MRIs 05/31- CTA Chest PE- 1. No pulmonary embolus. 2. Small, patchy alveolar opacities in the posterior left lung base decreased in size and number compared to 05/28/17. Few new, scattered, groundglass opacities have developed in the right upper lobe which is a nonspecific finding , but may represent pneumonia. X-RAY CHEST ONE VIEW, PORTABLE IMPRESSION: Left basilar opacity compatible atelectasis versus early pneumonia. Please correlate with clinical and laboratory findings. Dictated by: Annie Martell MD, PhD on 05/28/2017 at 18:12 CT ANGIO CHEST PULMONARY EMBOLISM IMPRESSION: 1. Study limited by suboptimal contrast opacification of the segmental and subsegmental pulmonary arteries. 2. No large central pulmonary embolus. Small pulmonary emboli involving the segmental and subsegmental pulmonary arteries cannot be excluded. 3. Status post gastric bypass. 4. Small hiatal hernia with concentric distal esophageal thickening. The esophagus is diffusely patulous and fluid-filled. Distal esophageal obstructing mass or benign stricture cannot be excluded. Recommend either endoscopy or barium contrast upper GI series for further evaluation. 5. Splenomegaly. Dictated by: Annie Martell MD, PhD on 05/28/2017 at 21:09 . 12-lead ECG EKG: Sinus tachycardia, heart rate 118, normal axis, prolonged QTC at 477 ms otherwise normal intervals, normal R-wave progression, no pathological Q waves or acute ischemic changes such as ST elevation or depression. . Assessment & Plan Liliane Guzman is a 41-year-old woman with breast cancer currently on radiation, fibromyalgia, depression, and myoclonus who presents to [facility] emergency department with acute onset shortness of breath, fever, productive cough, chest and back pain that started this morning currently being treated for HCAP w/ Zosyn since 05/29. Acute sepsis due to healthcare associated pneumonia, present on admission. Active. - Patient presented with shortness of breath, febrile (T 38.6), tachypnea (RR 36 ), and tachycardic (131) with persistent Luekopenia. - Started on Vancomycin, Zosyn, Levofloxacin. - MRSA negative, vanco dc/d. Procalcitonin 1.7-> 0.54 on repeat. - Continued on Zosyn since 05/29. Plan to eventually transition to PO Levofloxacin/Clindamycin for 10-. . Acute left basilar healthcare associated pneumonia, present on admission. Active. - The patient presented with presented with shortness of breath, febrile (T 38.6), tachypnea (RR 36), and tachycardic (131) without leukocytosis. - The patient was recently hospitalized for community-acquired pneumonia 2016-05/05/2017. May be a component of aspiration pneumonia due to distal esophageal thickening as below. - Chest x-ray demonstrated Left basilar opacity compatible atelectasis versus early pneumonia, as above. - 05/31- CTA Chest PE- No pulmonary embolus. Small, patchy alveolar opacities in the posterior left lung base decreased in size and number compared to . Few new, scattered, groundglass opacities have developed in the right upper lobe which is a nonspecific finding, but may represent pneumonia. - Blood cultures- NGTD. Viral Panel- neg. Strep Ag- neg. MRSA- neg. Sputum- NGTD. - Initial pro-calcitonin elevated at 1.46-->1.70. Continue to trend every 2-3 days - Discontinued vancomycin, MRSA PCR nares is negative. Invasive right breast cancer, present on admission. Active. - Finished chemotherapy 02/2017 and currently undergoing radiation. - patient did not receive radiation on 05/28/2017. - Outpatient Oncologist, Dr. Cotto- saw pt on 06/01. Concern for aspiration pna and would like repeat MBS in 1 month. per note below leukopenia is related to antibiotics and sepsis syndrome. As long as absolute neutrophil count is over 500, G-CSF is not recommended. Even if it drops under 500, but quickly reverses, I would not use G-CSF. I would consider stopping the Zosyn if tomorrow her neutrophil count continues to drop. I think one alternative antibiotic regimen for her recurrent aspiration pneumonia could be a combination of clindamycin and levofloxacin to complete a 10-14 day course of antibiotic therapy. Concentric distal esophageal thickening, acuity unknown, present on admission. Active. - CTA demonstrated small hiatal hernia with concentric distal esophageal thickening, esophagus is diffusely patulous and fluid-filled, distal esophageal obstructing mass or benign stricture cannot be excluded, as above. - Patient denied trouble swallowing but suspect may be having repeat episodes of pneumonia due to aspiration. - THERMOMETER TESTER Recs- Aspiration and Reflux precautions reviewed with pt.Recommend continue current diet- Regular diet with thin liquids. No further skilled gear shaper set up operator services indicated, f/u GI as OP. - Called gastroenterology, as patient can swallow currently Dr. Liriano feels she can be followed up as an outpatient in his office. May need repeat MBS in 1 month. Anemia of chronic disease present on admission. Stable. - Microcytic anemia which likely represents iron deficiency anemia and anemia of chronic disease. - Hold ferrous sulfate 325 mg daily due to acute infection. - Hb stable. Acute transaminitis, present on admission. Resolved. - Unclear etiology but likely secondary to acute sepsis. Has had CCK surgery. No known liver mets. May also be from medications such as recent antibiotics. Consider MA. - Avoid toxic liver metabolites. Chronic problems: Myoclonus chronic stable. -- Patient said she does not have seizure disorder, she has myoclonus -- Continue Keppra 1000 mg twice a day. Asthma, present on admission. Stable. - Ordered albuterol nebulizers every 4 hours as needed for shortness of breath. - Continue Cetirizine 10 mg daily at bedtime and diphenhydramine 25 mg 3 times a day as needed. Chronic pain with opiate habituation, present on admission. Stable. - Continue OxyContin 30 mg twice a day and oxycodone 10 mg every 6 hours as needed for breakthrough pain. - Continue Lyrica 50 mg 3 times a day. - Continue spinal cord stimulator. - Continue Colace 200 mg daily as needed for opiate-induced constipation. GERD, present on admission. Presumed stable. - Continue Protonix 40 mg daily. Depression and anxiety, present on admission. Stable. - Continue duloxetine 60 mg daily. Hyperlipidemia, present on admission. Stable. - Continue simvastatin 40 mg daily at bedtime. Hypothyroidism present on admission. Stable. - Continue levothyroxine 112 g daily. Migraines, not present on admission. Stable. - Continue sumatriptan 100 mg as needed for migraine. Obstructive sleep apnea on CPAP, present on admission. Stable. - Suspected Acute pulmonary embolism, present on admission, ruled out. Repeat - CTA Chest PE- No pulmonary embolus. - Recommended patient have CPAP brought in. Muscle spasticity, present on admission. Stable. - Continue baclofen 10 mg 4 times a day. Insomnia, present on admission. Stable. - Continue doxepin 20 mg at bedtime as needed. PRN antiemetics: Zofran and Maalox. PRN bowel regimen: Senna and MiraLAX. PRN analgesics: Tylenol. High risk medications: Heparin drip Patient is admitted under inpatient status with expected length of stay greater than 2 midnights due to severity of presenting symptoms, risk of adverse event, and complexity of treatment plan. . VTE Prophylaxis: Other (heparin gtt) VTE Mechanical Devices: Venous Foot Pump Resuscitation Status: DNR/DNI:Do Not Resuscitate/Intubate Sukh Villa MD Jun 01, 2017 12:55
[2017-06-01 15:02] VITALS: PULSE 96; RESP 20; O2SAT 98
[2017-06-01 16:31] VITALS: BP 106/63; PULSE 83; RESP 16; O2SAT 94
--- NOTE | 2017-06-01 18:25 | NUR ---
Pain/congestion Pt c/o of chronic pain through out shift, scheduled and PRN pain meds keep pain at tolerable level. Pt reported sinus/DUQUE and neck pain. Pseudafed, Tylenol and heating pad given with resolutions of discomfort. Call light in reach.
[2017-06-01 20:22] VITALS: BP 115/73; PULSE 81; RESP 16; O2SAT 96
[2017-06-02] MEDS: Sodium Chloride LOK Flush 10 mL Syringe IVFLUSH SCH ×3 (00:30→16:30)
[2017-06-02] MEDS: Piperacillin-Tazo 3.375 Gm Inj 3.375 GM in Dextrose 5% Minibag Plus 50 ML IV SCH ×2 (00:53→09:06)
[2017-06-02] MEDS: 0.9% Sodium Chloride 1,000 ML IV SCH ×2 (02:46→10:15)
[2017-06-02 05:02] VITALS: BP 108/70; PULSE 78; RESP 18; O2SAT 98
[2017-06-02 08:56] VITALS: BP 112/71; PULSE 87; RESP 16; O2SAT 97
[2017-06-02] MEDS: levETIRAcetam 500 mg Tablet PO SCH ×2 (09:04→20:44)
[2017-06-02] MEDS: Pantoprazole 40 mg ER24 Tablet PO SCH (09:04)
[2017-06-02] MEDS: DULoxetine 30 mg DR Capsule PO SCH (09:04)
[2017-06-02] MEDS: oxyCODONE ER 10 mg ER12 Tablet PO SCH ×2 (09:05→20:44)
[2017-06-02 09:56] LABS: BASOPHILS % (AUTO) 0.5 % (0-3); MONOCYTES % (AUTO) 11.4 % (4-12); Mean Corpuscular Hemoglobin 24.1 pg (27.0-35.0); Mean Corpuscular Volume 77.3 fL (81-100); NEUTROPHILS % (AUTO) 56.2 % (40-74); Platelet Count 204 bil/L (150-400)
[2017-06-02] MEDS: levoFLOXacin 750 mg Tablet PO SCH (10:38)
--- NOTE | 2017-06-02 11:41 | PCM.PNMED ---
Subjective Date of Service Jun 02, 2017 Subjective Pt still c/o cough overnight. Denies fever/chills. c/o of back pain, heating pad helps. Exam Vital Signs Vital Sign - Last Date Time Temp Pulse Resp B/P Pulse Ox O2 Delivery O2 Flow Rate FiO2 06/02/17 08:56 36.7 87 16 112/71 97 Room Air Intake and Output 06/01/17 06/01/17 06/02/17 Cumulative From/Thru 15:00 23:00 07:00 05/28/17 17:39 - 06/02/17 06:12 Intake Total 1949 ml 1302 ml 20648 ml Output Total 2200 ml 2800 ml 10404 ml Balance -251 ml -1498 ml -4352 ml Intake Oral 952 ml 1302 ml 6626 ml IV Total 997 ml 6902 ml Output Urine Total 2200 ml 2800 ml 65918 ml # Bowel Movements 1 1 3 Exam Gen.: Pleasant, no Acute distress. HEENT: Normocephalic atraumatic she is awaiting bandanna to cover her hair or scalp Heart: Regular rate and rhythm assessment murmurs Lungs: +coarse BS bilat. Abdomen: Nontender nondistended Extremities: No edema MSK: Moving extremities without Neck: Negative for JVD, trachea central, no thyromegaly Psych: Negative for agitation Neuro no focal deficits IVs and Medications Medications Reviewed: Medications were reviewed in detail Lab and Diagnostics Result Diagram: 06/02/17 0950 05/31/17 0702 Microbiology Blood cultures 2 pending. . X-Rays, CTs and MRIs 05/31- CTA Chest PE- 1. No pulmonary embolus. 2. Small, patchy alveolar opacities in the posterior left lung base decreased in size and number compared to 05/28/17. Few new, scattered, groundglass opacities have developed in the right upper lobe which is a nonspecific finding , but may represent pneumonia. X-RAY CHEST ONE VIEW, PORTABLE IMPRESSION: Left basilar opacity compatible atelectasis versus early pneumonia. Please correlate with clinical and laboratory findings. Dictated by: Annie Martell MD, PhD on 05/28/2017 at 18:12 CT ANGIO CHEST PULMONARY EMBOLISM IMPRESSION: 1. Study limited by suboptimal contrast opacification of the segmental and subsegmental pulmonary arteries. 2. No large central pulmonary embolus. Small pulmonary emboli involving the segmental and subsegmental pulmonary arteries cannot be excluded. 3. Status post gastric bypass. 4. Small hiatal hernia with concentric distal esophageal thickening. The esophagus is diffusely patulous and fluid-filled. Distal esophageal obstructing mass or benign stricture cannot be excluded. Recommend either endoscopy or barium contrast upper GI series for further evaluation. 5. Splenomegaly. Dictated by: Annie Martell MD, PhD on 05/28/2017 at 21:09 . 12-lead ECG EKG: Sinus tachycardia, heart rate 118, normal axis, prolonged QTC at 477 ms otherwise normal intervals, normal R-wave progression, no pathological Q waves or acute ischemic changes such as ST elevation or depression. . Assessment & Plan Liliane Guzman is a 41-year-old woman with breast cancer currently on radiation, fibromyalgia, depression, and myoclonus who presents to [facility] emergency department with acute onset shortness of breath, fever, productive cough, chest and back pain that started this morning currently being treated for HCAP w/ Zosyn since 05/29, changed to PO Levofloxacin/Clindamycin Acute sepsis due to healthcare associated pneumonia, present on admission. Active. - Patient presented with shortness of breath, febrile (T 38.6), tachypnea (RR 36 ), and tachycardic (131) with persistent Luekopenia. - Started on Vancomycin, Zosyn, Levofloxacin. - MRSA negative, vanco dc/d. Procalcitonin 1.7-> 0.54 on repeat. - Continued on Zosyn since 05/29. On 06/02 changed to PO Levofloxacin/Clindamycin , plan to discharge with total treatment for 10-14 days until June 12. Acute left basilar healthcare associated pneumonia, present on admission. Active. - The patient presented with presented with shortness of breath, febrile (T 38.6), tachypnea (RR 36), and tachycardic (131) without leukocytosis. - The patient was recently hospitalized for community-acquired pneumonia 2016-05/05/2017. May be a component of aspiration pneumonia due to distal esophageal thickening as below. - Chest x-ray demonstrated Left basilar opacity compatible atelectasis versus early pneumonia, as above. - 05/31- CTA Chest PE- No pulmonary embolus. Small, patchy alveolar opacities in the posterior left lung base decreased in size and number compared to . Few new, scattered, groundglass opacities have developed in the right upper lobe which is a nonspecific finding, but may represent pneumonia. - Blood cultures- NGTD. Viral Panel- neg. Strep Ag- neg. MRSA- neg. Sputum- NGTD. - Initial pro-calcitonin elevated at 1.46-->1.70. Continue to trend every 2-3 days - Discontinued vancomycin, MRSA PCR nares is negative. Invasive right breast cancer, present on admission. Active. - Finished chemotherapy 02/2017 and currently undergoing radiation. - patient did not receive radiation on 05/28/2017. - Outpatient Oncologist, Dr. Cotto- saw pt on 06/01. Concern for aspiration pna and would like repeat MBS in 1 month. per note below leukopenia is related to antibiotics and sepsis syndrome. As long as absolute neutrophil count is over 500, G-CSF is not recommended. Even if it drops under 500, but quickly reverses, I would not use G-CSF. I would consider stopping the Zosyn if tomorrow her neutrophil count continues to drop. I think one alternative antibiotic regimen for her recurrent aspiration pneumonia could be a combination of clindamycin and levofloxacin to complete a 10-14 day course of antibiotic therapy. Concentric distal esophageal thickening, acuity unknown, present on admission. Active. - CTA demonstrated small hiatal hernia with concentric distal esophageal thickening, esophagus is diffusely patulous and fluid-filled, distal esophageal obstructing mass or benign stricture cannot be excluded, as above. - Patient denied trouble swallowing but suspect may be having repeat episodes of pneumonia due to aspiration. - CHIEF RADIOLOGY Recs- Aspiration and Reflux precautions reviewed with pt.Recommend continue current diet- Regular diet with thin liquids. No further skilled aircraft accessories mechanic services indicated, f/u GI as OP. - Called gastroenterology, as patient can swallow currently Dr. Liriano feels she can be followed up as an outpatient in his office. May need repeat MBS in 1 month. Anemia of chronic disease present on admission. Stable. - Microcytic anemia which likely represents iron deficiency anemia and anemia of chronic disease. - Hold ferrous sulfate 325 mg daily due to acute infection. - Hb stable. Acute transaminitis, present on admission. Resolved. - Unclear etiology but likely secondary to acute sepsis. Has had CCK surgery. No known liver mets. May also be from medications such as recent antibiotics. Consider MA. - Avoid toxic liver metabolites. Chronic problems: Myoclonus chronic stable. -- Patient said she does not have seizure disorder, she has myoclonus -- Continue Keppra 1000 mg twice a day. Asthma, present on admission. Stable. - Ordered albuterol nebulizers every 4 hours as needed for shortness of breath. - Continue Cetirizine 10 mg daily at bedtime and diphenhydramine 25 mg 3 times a day as needed. Chronic pain with opiate habituation, present on admission. Stable. - Continue OxyContin 30 mg twice a day and oxycodone 10 mg every 6 hours as needed for breakthrough pain. - Continue Lyrica 50 mg 3 times a day. - Continue spinal cord stimulator. - Continue Colace 200 mg daily as needed for opiate-induced constipation. GERD, present on admission. Presumed stable. - Continue Protonix 40 mg daily. Depression and anxiety, present on admission. Stable. - Continue duloxetine 60 mg daily. Hyperlipidemia, present on admission. Stable. - Continue simvastatin 40 mg daily at bedtime. Hypothyroidism present on admission. Stable. - Continue levothyroxine 112 g daily. Migraines, not present on admission. Stable. - Continue sumatriptan 100 mg as needed for migraine. Obstructive sleep apnea on CPAP, present on admission. Stable. - Suspected Acute pulmonary embolism, present on admission, ruled out. Repeat - CTA Chest PE- No pulmonary embolus. - Recommended patient have CPAP brought in. Muscle spasticity, present on admission. Stable. - Continue baclofen 10 mg 4 times a day. Insomnia, present on admission. Stable. - Continue doxepin 20 mg at bedtime as needed. PRN antiemetics: Zofran and Maalox. PRN bowel regimen: Senna and MiraLAX. PRN analgesics: Tylenol. Dispo- Anticipate discharge 06/03. - For Pneumonia- Continue Levofloxacin and Clindamycin with total treatment for 10-14 days until June 12. - Follow up with Oncology, Dr. Roldan's office Sunday, to determine when to resume treatment. - Follow up with Gastroenterology, Dr. Liriano, for dysphagia and esophageal thickening seen on CAT Scan. Oncology recommending repeat Modified Barium Swallow in 4 weeks. Pain Evaluation: Adequate Pain Control VTE Prophylaxis: Sub-Q Enoxaparin, Other (heparin gtt) VTE Mechanical Devices: Venous Foot Pump Resuscitation Status: DNR/DNI:Do Not Resuscitate/Intubate Sukh Villa MD Jun 02, 2017 11:41
--- NOTE | 2017-06-02 14:12 | NUR ---
Multidisciplinary Communication 2302 - Discussed her care with Dr. Villa and the rest of the multidisciplinary care team during morning rounds. Informed them that she had requested her home Doxepin for a bedtime sleeping aide. Dr. Villa said he would order it which he did. He also said that she will likely discharge tomorrow. Care continues.
[2017-06-02 16:11] VITALS: PULSE 87; RESP 16; O2SAT 97
[2017-06-02 17:20] VITALS: BP 101/69; PULSE 79; RESP 16; O2SAT 97
[2017-06-02] MEDS: Ondansetron 2 mg/mL 2 mL Inj IVPUSH PRN (19:12)
[2017-06-02 21:29] VITALS: BP 109/70; PULSE 84; RESP 20; O2SAT 99
[2017-06-03] MEDS: Sodium Chloride LOK Flush 10 mL Syringe IVFLUSH SCH ×2 (00:42→09:19)
[2017-06-03 06:02] VITALS: BP 131/78; PULSE 76; RESP 18; O2SAT 98
[2017-06-03 06:45] LABS: Mean Corpuscular Volume 75.5 fL (81-100)
[2017-06-03 07:17] LABS: BASOPHILS % (AUTO) 0.8 % (0-3); EOSINOPHILS % (AUTO) 12.4 % (0-5); MONOCYTES % (AUTO) 10.8 % (4-12); Mean Corpuscular Hemoglobin 24.3 pg (27.0-35.0); NEUTROPHILS % (AUTO) 47.5 % (40-74)
[2017-06-03 09:15] VITALS: BP 105/67; PULSE 91; RESP 14; O2SAT 97
[2017-06-03] MEDS: levoFLOXacin 750 mg Tablet PO SCH (09:17)
[2017-06-03] MEDS: DULoxetine 30 mg DR Capsule PO SCH (09:17)
[2017-06-03] MEDS: oxyCODONE ER 10 mg ER12 Tablet PO SCH (09:18)
[2017-06-03] MEDS: levETIRAcetam 500 mg Tablet PO SCH (09:18)
[2017-06-03] MEDS: Pantoprazole 40 mg ER24 Tablet PO SCH (09:19)
[2017-06-03] MEDS ORDERED: CLIN-77 PO (11:21)
[2017-06-03] MEDS ORDERED: LEVO750T9 PO (11:21)
--- NOTE | 2017-06-03 11:22 | PCM.DC.MED ---
Discharge Summary Date of Service Jun 03, 2017 Dates of Hospitalization Date of Hospital Admission May 28, 2017 at 23:54 Date of Discharge: Jun 03, 2017 Providers: Admitting Physician: Alba Vaughn MD Primary Care Physician: Yessi Dallas MD Attending Physician: Sukh Villa MD Diagnosis at Time of Discharge Diagnosis at Time of Discharge Acute sepsis due to healthcare associated pneumonia, present on admission. Active. Acute left basilar healthcare associated pneumonia, present on admission. Active. Invasive right breast cancer, present on admission. Active. Concentric distal esophageal thickening, acuity unknown, present on admission. Active. Anemia of chronic disease present on admission. Stable. Acute transaminitis, present on admission. Resolved. Chronic problems: Myoclonus chronic stable. Asthma, present on admission. Stable. Chronic pain with opiate habituation, present on admission. Stable. GERD, present on admission. Presumed stable. Depression and anxiety, present on admission. Stable. Hyperlipidemia, present on admission. Stable. Hypothyroidism present on admission. Stable. Migraines, not present on admission. Stable. Obstructive sleep apnea on CPAP, present on admission. Stable. Consultations Oncology- Dr. Weber Procedures XRay, CTs & MRIs 05/31- CTA Chest PE- 1. No pulmonary embolus. 2. Small, patchy alveolar opacities in the posterior left lung base decreased in size and number compared to 05/28/17. Few new, scattered, groundglass opacities have developed in the right upper lobe which is a nonspecific finding , but may represent pneumonia. X-RAY CHEST ONE VIEW, PORTABLE IMPRESSION: Left basilar opacity compatible atelectasis versus early pneumonia. Please correlate with clinical and laboratory findings. Dictated by: Annie Martell MD, PhD on 05/28/2017 at 18:12 CT ANGIO CHEST PULMONARY EMBOLISM IMPRESSION: 1. Study limited by suboptimal contrast opacification of the segmental and subsegmental pulmonary arteries. 2. No large central pulmonary embolus. Small pulmonary emboli involving the segmental and subsegmental pulmonary arteries cannot be excluded. 3. Status post gastric bypass. 4. Small hiatal hernia with concentric distal esophageal thickening. The esophagus is diffusely patulous and fluid-filled. Distal esophageal obstructing mass or benign stricture cannot be excluded. Recommend either endoscopy or barium contrast upper GI series for further evaluation. 5. Splenomegaly. Dictated by: Annie Martell MD, PhD on 05/28/2017 at 21:09 . ECG 12 Lead EKG: Sinus tachycardia, heart rate 118, normal axis, prolonged QTC at 477 ms otherwise normal intervals, normal R-wave progression, no pathological Q waves or acute ischemic changes such as ST elevation or depression. . Brief History Liliane Guzman is a 41-year-old woman with breast cancer currently on radiation, fibromyalgia, depression, and myoclonus who presents to [facility] emergency department with acute onset shortness of breath, fever, productive cough, chest and back pain that started this morning. She describes waking up with wheezing and a sensation of "drowning." She then used her albuterol nebulizer 2 with mild relief. She reports associated fever and chills with the highest temperature reading of 103.5F. She was diagnosed with pneumonia 2 weeks ago had a 3 day hospital stay discharged on azithromycin and cefuroxime at home. She was not able to take her last 2 doses as cefuroxime due to GI upset. She has had a productive cough since her pneumonia started 2 weeks ago and reports that it was improving until today. Her cough is productive of srivastava sputum. Her chest and back pain are described as a deep ache without radiation. She additionally endorses a mild headache, sinus pain and congestion. She denies vision changes, sore throat, abdominal pain, nausea, vomiting, dysuria, diarrhea, melena, or hematochezia. She does endorse chronic constipation. She has had no sick contacts. She does not use oxygen at home. Of note, she does occasionally choke while eating and endorses mild dysphagia. Vital signs in the ER: Temperature 38.6. Pulse 131. Respiratory rate 36. Blood pressure 126/77. Pulse ox 95% on room air. She was given in the ER: Oxycodone 30 mg, vancomycin with dosing per pharmacist, levofloxacin IV 750 mg 1, ketorolac IV 15 mg 1, Keppra IV 1000 mg 1, Zosyn IV 3.375 g 1, ondansetron IV 8 mg 1, diphenhydramine IV 50 mg 1 and 2 L of NS. PCP is Dr. Yessi Dallas. Oncologist Dr. Weber. . Hospital Course Liliane Guzman is a 41-year-old woman with breast cancer currently on radiation, fibromyalgia, depression, and myoclonus who presents to [facility] emergency department with acute onset shortness of breath, fever, productive cough, chest and back pain that started this morning currently being treated for HCAP w/ Zosyn since 05/29, changed to PO Levofloxacin/Clindamycin Acute sepsis due to healthcare associated pneumonia, present on admission. Active. - Patient presented with shortness of breath, febrile (T 38.6), tachypnea (RR 36 ), and tachycardic (131) with persistent Luekopenia which is improving from low of 1.9 to 2.5. - Started on Vancomycin, Zosyn, Levofloxacin. - MRSA negative, vanco dc/d. Procalcitonin 1.7-> 0.54 on repeat. - Continued on Zosyn since 05/29. On 06/02 changed to PO Levofloxacin/Clindamycin , plan to discharge with total treatment for 10-14 days until June 12. Acute left basilar healthcare associated pneumonia, present on admission. Active. - The patient presented with presented with shortness of breath, febrile (T 38.6), tachypnea (RR 36), and tachycardic (131) without leukocytosis. - The patient was recently hospitalized for community-acquired pneumonia 2016-05/05/2017. May be a component of aspiration pneumonia due to distal esophageal thickening as below. - Chest x-ray demonstrated Left basilar opacity compatible atelectasis versus early pneumonia, as above. - 05/31- CTA Chest PE- No pulmonary embolus. Small, patchy alveolar opacities in the posterior left lung base decreased in size and number compared to . Few new, scattered, groundglass opacities have developed in the right upper lobe which is a nonspecific finding, but may represent pneumonia. - Blood cultures- NGTD. Viral Panel- neg. Strep Ag- neg. MRSA- neg. Sputum- NGTD. - Initial pro-calcitonin elevated at 1.46-->1.70->0.13 on discharge. - Discontinued vancomycin, MRSA PCR nares is negative. - Continued on Zosyn since 05/29. On 06/02 changed to PO Levofloxacin/Clindamycin , plan to discharge with total treatment for 10-14 days until June 12 Invasive right breast cancer, present on admission. Active. - Finished chemotherapy 02/2017 and currently undergoing radiation. - patient did not receive radiation on 05/28/2017. - Outpatient Oncologist, Dr. Cotto- saw pt on 06/01. Concern for aspiration pna and would like repeat MBS in 1 month. - Follow up with Rad-Onc and Oncology, Dr. Weber's, Sunday, to determine when to resume treatment. Concentric distal esophageal thickening, acuity unknown, present on admission. Active. - CTA demonstrated small hiatal hernia with concentric distal esophageal thickening, esophagus is diffusely patulous and fluid-filled, distal esophageal obstructing mass or benign stricture cannot be excluded, as above. - Patient denied trouble swallowing but suspect may be having repeat episodes of pneumonia due to aspiration. - RECEIVING ROOM CLERK Recs- Aspiration and Reflux precautions reviewed with pt.Recommend continue current diet- Regular diet with thin liquids. No further skilled machining engineer services indicated, f/u GI as OP. - Called gastroenterology, as patient can swallow currently Dr. Liriano feels she can be followed up as an outpatient in his office. May need repeat MBS in 1 month. Anemia of chronic disease present on admission. Stable. - Microcytic anemia which likely represents iron deficiency anemia and anemia of chronic disease. - Hold ferrous sulfate 325 mg daily due to acute infection. Resume per oncology. - Hb stable. Acute transaminitis, present on admission. Resolved. - Unclear etiology but likely secondary to acute sepsis. Has had CCK surgery. No known liver mets. May also be from medications such as recent antibiotics. Consider MA. - Avoid toxic liver metabolites. Chronic problems: Myoclonus chronic stable. -- Patient said she does not have seizure disorder, she has myoclonus -- Continue Keppra 1000 mg twice a day. Asthma, present on admission. Stable. - Ordered albuterol nebulizers every 4 hours as needed for shortness of breath. - Continue Cetirizine 10 mg daily at bedtime and diphenhydramine 25 mg 3 times a day as needed. Chronic pain with opiate habituation, present on admission. Stable. - Continue OxyContin 30 mg twice a day and oxycodone 10 mg every 6 hours as needed for breakthrough pain. - Continue Lyrica 50 mg 3 times a day. - Continue spinal cord stimulator. - Continue Colace 200 mg daily as needed for opiate-induced constipation. GERD, present on admission. Presumed stable. - Continue Protonix 40 mg daily. Depression and anxiety, present on admission. Stable. - Continue duloxetine 60 mg daily. Hyperlipidemia, present on admission. Stable. - Continue simvastatin 40 mg daily at bedtime. Hypothyroidism present on admission. Stable. - Continue levothyroxine 112 g daily. Migraines, not present on admission. Stable. - Continue sumatriptan 100 mg as needed for migraine. Obstructive sleep apnea on CPAP, present on admission. Stable. - Suspected Acute pulmonary embolism, present on admission, ruled out. Repeat - CTA Chest PE- No pulmonary embolus. - Recommended patient have CPAP brought in. Muscle spasticity, present on admission. Stable. - Continue baclofen 10 mg 4 times a day. Insomnia, present on admission. Stable. - Continue doxepin 20 mg at bedtime as needed. PRN antiemetics: Zofran and Maalox. PRN bowel regimen: Senna and MiraLAX. PRN analgesics: Tylenol. Dispo- Anticipate discharge 06/03. - For Pneumonia- Continue Levofloxacin and Clindamycin with total treatment for 10-14 days until June 12. - Hold ferrous sulfate 325 mg daily due to acute infection. Resume per oncology. - Follow up with Radiation Oncology and Oncology, Dr. Weber's office, Sunday, to determine when to resume treatment. - Follow up with Gastroenterology, Dr. Liriano, for dysphagia and esophageal thickening seen on CAT Scan. Oncology recommending repeat Modified Barium Swallow in 4 weeks. Exam Vital Signs (Last) Date Time Temp Pulse Resp B/P Pulse Ox O2 Delivery O2 Flow Rate FiO2 06/03/17 09:15 36.8 91 14 105/67 97 Room Air Test 05/28/17 18:57 05/28/17 20:25 05/28/17 21:43 05/30/17 16:14 D-Dimer 1.81mg/L FEU (<0.50) Hemoglobin A1c 5.3% (4.8-5.6) Lactic Acid Level 2.0mmol/L (0.4-2.0) Phosphorus Level 3.6mg/dL (2.5-4.9) Magnesium Level 1.7mg/dL (1.6-2.6) Troponin T 0.010ug/L (0.0-0.011) Hold Urine Received (Received) Urine Color Yellow (YELLOW) Urine Appearance Clear (CLEAR,HAZY) Urine pH 7.0 (5.0-8.0) Urine Specific Thornton 1.005 (1.003-1.035) Urine Protein Negativemg/dL (NEG,TRACE) Urine Glucose (UA) Negativemg/dL (NEGATIVE) Urine Ketones Negativemg/dL (NEGATIVE) Urine Occult Blood Negative (NEGATIVE) Urine Nitrite Negative (NEGATIVE) Urine Bilirubin Negative (NEGATIVE) Urine Urobilinogen Normalmg/dL (NORMAL) Urine Leukocyte Esterase Negative (NEGATIVE) Urine RBC 0-2/hpf (0-2) Urine WBC 0-5/hpf (0-5) Urine Epithelial Cells Few/hpf (NONE-MOD) Urine Crystals None seen (NONE SEEN) Urine Bacteria Few/hpf (NONE-FEW) Urine Hyaline Casts None/lpf (NONE) Urine Granular Casts None seen (NONE SEEN) Urine Waxy Casts None seen (NONE SEEN) Urine Red Blood Cell Casts None seen (NONE SEEN) Urine White Blood Cell Casts None seen (NONE SEEN) Urine Mucus None seen (None Seen) Urine Trichomonas None seen (NONE SEEN) Urine Yeast None (NONE SEEN) Urinalysis Comment None Urine Culture Reflexed Not indicated Urine Legionella pneumophilia Ag Negative (Negative) Activated Partial Thromboplast Time 106.2sec (22.8-33.0) Test 05/31/17 07:02 06/03/17 06:30 Sodium Level 140mEq/L (134-144) Potassium Level 4.5mEq/L (3.5-5.2) Chloride Level 101mEq/L (97-108) Carbon Dioxide Level 21mmol/L (18-29) Blood Urea Nitrogen 8mg/dL (6-24) Creatinine 0.82mg/dL (0.57-1.00) Estimat Glomerular Filtration Rate 109mL/min (>59) Glucose Level 104mg/dL (60-99) Calcium Level 8.8mg/dL (8.5-10.1) Total Bilirubin 0.2mg/dL (0.0-1.2) Aspartate Amino Transf (AST/SGOT) 19U/L (0-50) Alanine Aminotransferase (ALT/SGPT) 21U/L (0-32) Alkaline Phosphatase 111U/L (25-150) Total Protein 5.8g/dL (6.4-8.4) Albumin 3.6g/dL (3.4-5.0) White Blood Count 2.5th/mm3 (3.8-10.1) Red Blood Count 3.83mil/mm3 (3.90-5.20) Hemoglobin 9.3g/dL (12.0-15.6) Hematocrit 28.9% (35.0-46.0) Mean Corpuscular Volume 75.5fL (81-100) Mean Corpuscular Hemoglobin 24.3pg (27.0-35.0) Mean Corpuscular Hemoglobin Concent 32.2% (32.0-37.0) Red Cell Distribution Width 15.4% (12.3-15.4) Platelet Count ely/L (150-400) Neutrophils (%) (Auto) 47.5% (40-74) Lymphocytes (%) (Auto) 25.3% (14-46) Monocytes (%) (Auto) 10.8% (4-12) Eosinophils (%) (Auto) 12.4% (0-5) Basophils (%) (Auto) 0.8% (0-3) Procalcitonin 0.13ng/mL (0.00-0.08) Microbiology Results Blood cultures 2 pending. . Discharge Medications Discharge Medications Ascorbic Acid (Vitamin C) 250 Mg Tab.chew 250 MG PO DAILY (Reported) Baclofen (Baclofen) 10 Mg Tablet 10 MG PO QID (Reported) Cetirizine HCl (Zyrtec) 10 Mg Capsule 10 MG PO prn (Reported) Doxepin (Doxepin) 10 Mg Capsule 20 MG PO HS (Reported) Duloxetine (Cymbalta) 60 Mg Capsule.dr 60 MG PO DAILY (Reported) Esomeprazole Magnesium (Nexium) 40 Mg Capsule.dr 40 MG PO DAILY (Reported) Ferrous Sulfate (Iron) 325 Mg Tablet 325 MG PO DAILY (Reported) Levetiracetam (Levetiracetam) 500 Mg Tablet 1,000 MG PO BID (Reported) Levothyroxine (Levothyroxine) 112 Mcg Tablet 112 MCG PO DAILY (Reported) Oxycodone ER (Oxycontin) 30 Mg Tab.er.12h 30 MG PO BID (Reported) Pregabalin (Lyrica) 150 Mg Capsule 150 MG PO TID (Reported) Simvastatin (Simvastatin) 40 Mg Tablet 40 MG PO HS (Reported) As needed Albuterol Neb Soln (Albuterol Neb Soln) 1.25 Mg/3 Ml Vial.neb Unknown Dose INHALATION Q4H PRN PRN For Shortness of Breath (Reported) Docusate Sodium (Colace) 100 Mg Capsule 200 MG PO DAILY PRN PRN For Constipation (Reported) Ibuprofen (Ibuprofen) 600 Mg Tablet 600 MG PO TID PRN PRN For Pain (Reported) Ondansetron (Ondansetron) 8 Mg Tablet 8 MG PO TID PRN PRN For Nausea (Reported) Sumatriptan Succinate (Sumatriptan Succinate) 100 Mg Tablet 100 MG PO PRN PRN PRN headache (Reported) Please verify dose/frequency, patient states 250mg QID. Maximum daily dosage is 200mg of sumatriptan succinate. diphenhydrAMINE HCl (Benadryl) 25 Mg Capsule 25 MG PO TID PRN PRN For Itching ( Reported) oxyCODONE (oxyCODONE) 10 Mg Tablet 10 MG PO Q6H PRN PRN For Pain (Reported) Additional med instructions - For Pneumonia- Continue Levofloxacin and Clindamycin with total treatment for 10-14 days until June 12. - Hold ferrous sulfate 325 mg daily due to acute infection. Resume per oncology. Followup Plan Disposition: Home Follow-up plan - Follow up with Radiation Oncology and Oncology, Dr. Weber's office, Sunday, to determine when to resume treatment. - Follow up with Gastroenterology, Dr. Liriano, for dysphagia and esophageal thickening seen on CAT Scan. Oncology recommending repeat Modified Barium Swallow in 4 weeks. Provider: Sarbjit Liriano MD Follow-up in: 4 weeks Time spent Greater than 30 minutes was spent in preparation of discharge with greater than 50% of that time dedicated to patient counseling and coordination of care. copies to: Yessi Dallas MD, Navdeep MD Jun 03, 2017 11:22
--- NOTE | 2017-06-03 11:27 | PCM.DIMED ---
Discharge Instructions Date of Service Jun 03, 2017 Dates of Hospitalization May 28, 2017 at 23:54 Discharge Diagnosis Discharge Diagnosis Acute sepsis due to healthcare associated pneumonia, present on admission. Active. Acute left basilar healthcare associated pneumonia, present on admission. Active. Invasive right breast cancer, present on admission. Active. Concentric distal esophageal thickening, acuity unknown, present on admission. Active. Anemia of chronic disease present on admission. Stable. Acute transaminitis, present on admission. Resolved. Chronic problems: Myoclonus chronic stable. Asthma, present on admission. Stable. Chronic pain with opiate habituation, present on admission. Stable. GERD, present on admission. Presumed stable. Depression and anxiety, present on admission. Stable. Hyperlipidemia, present on admission. Stable. Hypothyroidism present on admission. Stable. Migraines, not present on admission. Stable. Obstructive sleep apnea on CPAP, present on admission. Stable. Medication Instructions Additional med instructions - For Pneumonia- Continue Levofloxacin and Clindamycin with total treatment for 10-14 days until June 12. - Hold ferrous sulfate 325 mg daily due to acute infection. Resume per oncology. Diet Discharge Diet: No restrictions Activity Discharge Activity: No restrictions Call your provider Call your provider for: Fever or Chills, Shortness of breath Patient Instructions Follow-up plan - Follow up with Radiation Oncology and Oncology, Dr. Weber's office, Sunday, to determine when to resume treatment. - Follow up with Gastroenterology, Dr. Liriano, for dysphagia and esophageal thickening seen on CAT Scan. Oncology recommending repeat Modified Barium Swallow in 4 weeks. Provider: Sarbjit Liriano MD Follow-up in: 4 weeks Sukh Villa MD Jun 03, 2017 11:27
--- NOTE | 2017-06-03 12:24 | NUR ---
Discharge Pt. discharged to home at 1205 in stable condition. Walking with steady gait. All belongings, scripts and instructions with pt. She states understanding of f/u appointment and medication schedule. IV dc'd prior to discharge.
--- NOTE | 2017-06-03 16:12 | NUR ---
Social Work Note: Discharge Data: EMR reviewed. Patient is on day 6 of hospitalization for HCAP per H&P. Patient was discussed in morning rounds. Patient has been deemed medically stable for discharge today per MD. Prior to admission, patient resided at home alone. Patient was evaluated by ST during hospitalization and recommendation was made for patient to DC home. Transportation to be arranged by patient via POV. Patient to discharge home with no needs. Assessment: Patient to discharge home. Plan: Patient will discharge home today. Patient will arrange transportation needs via POV. Patient has no additional needs at this time. DEEPA Shukla
== END 2017-06-03 12:00 | disposition home or self-care (01) | DRG 871 ==
LOC: SED 17:36 → MPC 23:54
PROVIDERS: ADMIT Specialist; ATTEND Specialist
DX: A41.9 Sepsis, unspecified organism (principal); J18.9 Pneumonia, unspecified organism; F11.20 Opioid dependence, uncomplicated; J45.909 Unspecified asthma, uncomplicated; F41.8 Other specified anxiety disorders; E78.5 Hyperlipidemia, unspecified; E03.9 Hypothyroidism, unspecified; G47.33 Obstructive sleep apnea (adult) (pediatric); C50.911 Malignant neoplasm of unspecified site of right female breast; Z17.0 Estrogen receptor positive status [ER+]; G89.29 Other chronic pain; K21.9 Gastro-esophageal reflux disease without esophagitis; G47.00 Insomnia, unspecified; Y95 Nosocomial condition; G25.3 Myoclonus; D50.9 Iron deficiency anemia, unspecified

== ENCOUNTER 2017-06-08 12:06 | Emergency (ER) | payer OTHER ==
[~2017-06-08] VITALS: Ht 162.6 cm; Wt 100.0 kg
[~2017-06-08 12:06] MED LIST changes: +ASCO250T7 PO; -AZIT500T5 PO; -CEFU500T61 PO; +CLIN-77 PO; +LEVO750T9 PO
[2017-06-08 12:13] VITALS: BP 123/63; PULSE 110; RESP 18; O2SAT 98
--- NOTE | 2017-06-08 12:51 | ED.REPORT ---
HPI-Dyspnea / Wheezing Date of Service Jun 08, 2017 ED Provider: Carlos Liang MD The patient is a 41 year old female with a history of DCIS and invasive breast cancer on radiation and chemotherapy, fibromyalgia, hypothyroid, and recent healthcare acquired pneumonia (05/28) who presents to the ED with dyspnea that began at 0915 this morning. She was recently admitted to the hospital for healthcare associated pneumonia on 05/28. Most recent episode of pneumonia was treated with ceftriaxone and azithromycin and she was discharged in good condition following improvement. The patient currently endorses a productive cough with white sputum, chest pain, back pain, nausea and one episode of emesis (last night). She also reports recent lower extremity edema that she attributes to fluids given while admitted. Her current discomfort feels similar to her previous episodes of pneumonia. The patient's nebulizer has been ineffective. Her current chest and back pain feel similar to her chronic fibromyalgia pains. She denies any recent fever, chills, or diaphoresis. Last radiation treatment was this morning prior to symptom onset. Patient currently takes morphine for her pain. Nursing Notes Stated Complaint: CHEST/BACK PAIN WEAKNESS Chief Complaint: General Complaint Nursing Notes Reviewed: Yes (Knowledge Factor, Replises not reconciled) Allergies: Coded Allergies: Cantaloupe (Verified Allergy, Mild, 05/29/17) Makes ears itch Influenza Virus Vaccines (Verified Allergy, Unknown, 05/29/17) hydromorphone (Verified Allergy, Unknown, MAKES HER SICK, 05/29/17) meperidine (Verified Allergy, Unknown, IV - RUINS IV SITES, 05/29/17) metoclopramide (Verified Allergy, Unknown, MAKES HER FEEL LIKE SKIN CRAWLS BAD, 05/29/17) prochlorperazine (Verified Allergy, Unknown, 05/29/17) prochlorperazine edisylate (Verified Allergy, Unknown, 05/29/17) prochlorperazine maleate (Verified Allergy, Unknown, 05/29/17) promethazine (Verified Allergy, Unknown, 05/29/17) Uncoded Allergies: Honey Dew Melon (Allergy, Mild, 12/28/16) Makes ears itch Scheduled Ascorbic Acid (Vitamin C) 250 Mg Tab.chew 250 MG PO DAILY Baclofen (Baclofen) 10 Mg Tablet 10 MG PO QID Cetirizine HCl (Zyrtec) 10 Mg Capsule 10 MG PO prn Clindamycin (Clindamycin) 150 Mg Capsule 300 MG PO QID Doxepin (Doxepin) 10 Mg Capsule 20 MG PO HS Duloxetine (Cymbalta) 60 Mg Capsule.dr 60 MG PO DAILY Esomeprazole Magnesium (Nexium) 40 Mg Capsule.dr 40 MG PO DAILY Levetiracetam (Levetiracetam) 500 Mg Tablet 1,000 MG PO BID Levofloxacin (Levaquin) 750 Mg Tablet 750 MG PO DAILYAC Levothyroxine (Levothyroxine) 112 Mcg Tablet 112 MCG PO DAILY Oxycodone ER (Oxycontin) 30 Mg Tab.er.12h 30 MG PO BID Pregabalin (Lyrica) 150 Mg Capsule 150 MG PO TID Simvastatin (Simvastatin) 40 Mg Tablet 40 MG PO HS Scheduled PRN Albuterol Neb Soln (Albuterol Neb Soln) 1.25 Mg/3 Ml Vial.neb Unknown Dose INHALATION Q4H PRN PRN For Shortness of Breath Docusate Sodium (Colace) 100 Mg Capsule 200 MG PO DAILY PRN PRN For Constipation Ibuprofen (Ibuprofen) 600 Mg Tablet 600 MG PO TID PRN PRN For Pain Ondansetron (Ondansetron) 8 Mg Tablet 8 MG PO TID PRN PRN For Nausea Sumatriptan Succinate (Sumatriptan Succinate) 100 Mg Tablet 100 MG PO PRN PRN PRN headache Please verify dose/frequency, patient states 250mg QID. Maximum daily dosage is 200mg of sumatriptan succinate. diphenhydrAMINE HCl (Benadryl) 25 Mg Capsule 25 MG PO TID PRN PRN For Itching oxyCODONE (oxyCODONE) 10 Mg Tablet 10 MG PO Q6H PRN PRN For Pain General Time Seen by MD: 12:25 Chief Complaint Shortness of breath Hx Obtained From: Patient Arrived By: Walk-in Sudden in Onset?: No Onset Occurred: 1 - 4 hours ago Symptom Duration: Since onset Location: : Chest left: Chest right Quality: Painful Severity: Current: Mild Severity: Maximum: Mild Associated with: Reports: Chest pain, Cough, Leg swelling, Nausea, Vomiting, Denies: Diaphoresis, Fever Pertinent Negative: Pt denies other symptoms Recent Healthcare: Recent doctor visit, Recent hospitalization Similar Sx Previous: Yes Past Medical History Past Medical History Notes: Code status DNR Oncologist Dr. 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, on radiation Fibromyalgia Sleep apnea IBS Hypothyroid Kidney stones hiatal hernia recent pyelonephritis colonic seizures chronic pain/opioid use migraines Reports: Asthma, GERD Reports: Depression, Migraines, Thyroid disease, Urinary tract infection Past Surgical History Lithotripsy Breast reduction 2007 spinal chord stimulator 04/2015 gastric sleeve 2015 R partial mastectomy Reports: Cholecystectomy Family History A-fib Smoking History Never Smoker Social History Previous suicide attempt Alcohol Use: Denies alcohol use Drug Use: Denies drug use Other Social History: Local resident Ambulatory Status Independent Review of Systems Constitutional: Denies: Chills, Fever Respiratory: Reports: Prod cough, white, Shortness of breath Cardiovascular: Reports: Chest pain Musculoskeletal: Reports: Back pain Skin: Denies Diaphoresis Complete sys rev & neg: except as marked. GI: Reports: Nausea, Vomiting (1 episode) Physical Exam Initial Vital Signs Vital Signs (First) Date Time Temp Pulse Resp B/P Pulse Ox O2 Delivery O2 Flow Rate FiO2 06/08/17 12:13 36.2 110 18 123/63 98 Room Air Initial VS: Reviewed, Vital signs abnormal Head / Eyes: Atraumatic, Normocephalic, PERRL Extremities: Vascular intact, Neuro intact, No swelling, No tenderness Skin: Warm, Dry, No cyanosis Neurologic: Alert, Oriented, Nonfocal Psychiatric: Mood/affect normal, Behavior normal, Normal thought content General/Constitutional: Awake, Alert, No acute distress GENERAL: Alopecia secondary to chemo treatment Neck: Atraumatic, Supple, Full range of motion Respiratory / Chest: Atraumatic, Breath sounds NL, Breath sounds = bilat, No respiratory distress Cardiovascular: Regular rhythm, Heart sounds NL Heart Rate / Rhythm: Positive: Tachycardia Lower Ext Edema: Positive: Non-Pitting (Trace edema in LE) Abdomen: Atraumatic, Soft, Non-tender Interpretation & Diagnostics Lab Results Interpretation Result Diagram: 06/08/17 1314 06/08/17 1314 Test 06/08/17 12:58 06/08/17 13:14 Hold Urine Received (Received) White Blood Count 3.4th/mm3 (3.8-10.1) Red Blood Count 3.91mil/mm3 (3.90-5.20) Hemoglobin 9.2g/dL (12.0-15.6) Hematocrit 29.5% (35.0-46.0) Mean Corpuscular Volume 75.4fL (81-100) Mean Corpuscular Hemoglobin 23.5pg (27.0-35.0) Mean Corpuscular Hemoglobin Concent 31.2% (32.0-37.0) Red Cell Distribution Width 15.7% (12.3-15.4) Platelet Count 200bil/L (150-400) Neutrophils (%) (Auto) 67.9% (40-74) Lymphocytes (%) (Auto) 18.4% (14-46) Monocytes (%) (Auto) 8.9% (4-12) Eosinophils (%) (Auto) 3.6% (0-5) Basophils (%) (Auto) 0.6% (0-3) D-Dimer 2.30mg/L FEU (<0.50) Sodium Level 139mEq/L (134-144) Potassium Level 4.0mEq/L (3.5-5.2) Chloride Level 102mEq/L (97-108) Carbon Dioxide Level 25mmol/L (18-29) Blood Urea Nitrogen 8mg/dL (6-24) Creatinine 0.75mg/dL (0.57-1.00) Estimat Glomerular Filtration Rate 121mL/min (>59) Glucose Level 90mg/dL (60-99) Lactic Acid Level 0.9mmol/L (0.4-2.0) Calcium Level 8.7mg/dL (8.5-10.1) Total Bilirubin 0.2mg/dL (0.0-1.2) Aspartate Amino Transf (AST/SGOT) 17U/L (0-50) Alanine Aminotransferase (ALT/SGPT) 12U/L (0-32) Alkaline Phosphatase 132U/L (25-150) Total Protein 6.5g/dL (6.4-8.4) Albumin 3.9g/dL (3.4-5.0) Lab Results Interpretation: CBC mild anemia CMP normal D-dimer elavated ECG Interpretation ECG Interpretation: Sinus Rhythm Rate 97 bpm No abnormalities Time: 13:08 Interpreted by: ED physician X-Ray Chest Interpretation Chest Xray Interpretation: IMPRESSION: No acute process. Dictated by: Damian Andrea M.D. on 06/08/2017 at 13:09 Interpretation / Wet Read by: Interpret - Radiologist CT Chest Interpretation IMPRESSION: 1. Poor contrast opacification of the pulmonary arteries. Pulmonary embolus cannot be excluded. 2. No acute lung opacities. 3. Hiatal hernia. 4. Postsurgical changes. Findings telephoned to Dr. Carlos Liang on 06/08/2017 at 1537 hrs. Dictated by: Annie Martell MD, PhD on 06/08/2017 at 15:31 Study type: CT pulm angiogram Interpretation / Wet Read by: Interpret - Radiologist Re-Eval/Medical Decision Med Decision/Clinical Course This is a 41-year-old female breast cancer recently hospitalized for a possible aspiration pneumonia who presents complaining of a sense of shortness breath or worsening this morning. She also has chronic pain complicating things anxiety. She denies fevers chills or change cough. She has no pleuritic discomfort. On arrival she is afebrile, oxygenating, but is low-grade tachycardia. Aside from those findings her physical exam is normal. Two-view chest x-ray was negative, blood work was normal, EKG was normal. Given her risk factors emesis in the differential so d-dimer was sent and returned elevated. CT angios attempted, but was technically inadequate. The radiologist indicates the study could be repeated next day. However the patient 's in the meantime was observed for a number of hours, did quite well. She clinically looks well in no visible distress. When I review the records it turns out that the patient's had multiple CT angiograms and she has in recent weeks, all previously negative. The diagnosis out is one of exclusion, but my overall suspicion for PE is fairly low. I therefore discussed the case with the collagenase agrees in holding off on further angiograms or imaging at this time. The plan is discharge with close follow-up with oncology, return precautions reviewed. At this time and definitive or dangerous etiology of the patient's symptoms was not identified, but they have also completely resolved. She is discharged in good condition. Source of Hx: Old records Re-Evaluation/Progress #1: Time of Eval: 15:41 Patient Status: Condition improved Re-Evaluation/Progress Note: Patient condition is re-evaluated. Will consult oncology Re-Evaluation/Progress #2: Time of Eval: 16:14 )( Re-Eval Resp / Chest: Breath sounds normal Patient Status: Condition improved Re-Evaluation/Progress Note: Symptoms have improved upon recheck. She is informed of her results and the intended treatment plan. The patient understands and agrees with the current plan. Consultation : Referral / Consult Name: Scott Weber MD Call Returned at: 17:24 All Around Gear Machine Operator: Will see patient, Will see in office, Agrees with eval, Agrees with plan Note: Oncology - Discussed patient condition. Agrees that CT is not indicated at this time. Differential Diagnosis: Negative: Acute coronary syndrome, Airway obstruction, COPD exacerbation, Cardiogenic shock, Dysrhythmia, Myocardial infarction, Pneumonia, Pneumothorax, Respiratory insufficiency Counseled Regarding: Diagnosis, Lab results, Need for follow-up, When/why to return to ED Discharge & Departure Impression: Primary Impression: Shortness of breath Disposition: Home Discharge Condition All VS Reviewed: Yes Condition: Improved Patient Instructions: Dyspnea (ED), Shortness of Breath (ED) Additional Instructions: 1. A dangerous cause of the shortness of breath was not identified today. 2. No pneumonia was appreciated on chest x-ray or on CT scan. 3. Your blood tests were normal. 4. You had another tests for a blood clot (PE) that was "non-diagnostic" for technical reasons. If there were a strong concern for PE then we could consider a repeat CT scan tomorrow (the dye is hard on the kidneys), however your exam and findings in the ED are re-assuring and you have had multiple negative scans in recent weeks. I have talked with the oncologist and we agree that we would not jump to repeat your scan and radiation exposure at this time. However if you develop worsening symptoms, return again to the emergency department. Referrals: Yessi Dallas MD (PCP) Scribe Attestation Portions of this note were transcribed by Cesar Cantu. I, Dr. Liang, personally performed the history, physical exam and medical decision-making; I reviewed and confirmed the accuracy of the information in the transcribed note. Signed by: Cesar Cantu, 06/08/17. copies to: Yessi Dallas MD, Matthew F MD Jun 08, 2017 12:51 CESAR CANTU Jun 08, 2017 12:59
--- NOTE | 2017-06-08 13:11 | DRSVH ---
PROCEDURE: X-RAY CHEST, TWO VIEWS ([id number]) INDICATIONS: SOB, cough - recent pneumonia TECHNIQUE: 2 views of the chest were acquired. COMPARISON: [facility], CR, XR CHEST 1VW (PORTABLE), 05/28/2017, 18:00. [facility], CR, XR CHEST 2VW, 12/28/2016, 0:19. [facility], CR, XR CHEST 2VW, 09/15/2016, 12 :57. FINDINGS: Surgical changes and devices: None. Lungs and pleura: No pleural effusions or pneumothorax. Lungs are clear. Mediastinum: Mediastinal contours are normal. Heart size is normal. Bones and chest wall: No suspicious bony abnormalities. Soft tissues appear unremarkable. IMPRESSION: No acute process. Dictated by: Damian Andrea M.D. on 06/08/2017 at 13:09 Approved by: Damian Andrea M.D. on 06/08/2017 at 13:10
[2017-06-08 13:29] LABS: BASOPHILS % (AUTO) 0.6 % (0-3); EOSINOPHILS % (AUTO) 3.6 % (0-5); MONOCYTES % (AUTO) 8.9 % (4-12); Mean Corpuscular Hemoglobin 23.5 pg (27.0-35.0); Mean Corpuscular Volume 75.4 fL (81-100); NEUTROPHILS % (AUTO) 67.9 % (40-74); Platelet Count 200 bil/L (150-400)
[2017-06-08] MEDS ORDERED: Ondansetron 2 mg/mL 2 mL Inj IVPUSH ONE (14:35)
[2017-06-08] MEDS ORDERED: 0.9% Sodium Chloride 1,000 ML IV ONE (15:40)
--- NOTE | 2017-06-08 15:40 | DRSVH ---
PROCEDURE: CT ANGIO CHEST PULMONARY EMBOLISM ([id number]) INDICATIONS: CP SOB, Dimer + TECHNIQUE: After the administration of intravenous contrast, 2 mm thick sections acquired from the pulmonary api felipe to the posterior costophrenic angles. 3-dimensional maximum intensity projection (MIP) coronal a nd sagittal reformats were then acquired through the thorax. For radiation dose reduction, the follo wing was used: automated exposure control, adjustment of mA and/or kV according to patient size. COMPARISON: [facility], CT, CT ANGIO CHEST PE, 05/30/2017, 17:12. FINDINGS: Image quality: Study is nondiagnostic for pulmonary embolus 22 very poor contrast opacification of th e pulmonary arteries. Pulmonary arteries: Pulmonary arteries are normal in size.. Due to poor contrast opacification, pulm onary embolus cannot be excluded. Lungs and pleura: Lungs are clear. No pleural effusions or pneumothorax. Central and peripheral ai rways are patent. Mediastinum: Heart size is normal, without pericardial effusion. No mediastinal or hilar adenopathy . Thoracic aorta is normal in caliber and enhancement. No aortic dissection identified. Esophagus is normal in caliber. Small hiatal hernia is noted. Bones and chest wall: Surgical clips noted in the right breast. No suspicious bony lesions. Ribs an d thoracic spine appear intact throughout. Presence of the neurostimulator leads noted in the thoraci c spine. Thyroid gland within normal limits. No axillary or supraclavicular adenopathy. Abdomen: Postsurgical changes compatible with gastric stapling noted. Gallbladder is surgically abse nt. Mild intrahepatic and extrahepatic biliary dilatation noted likely related prior cholecystectomy. IMPRESSION: 1. Poor contrast opacification of the pulmonary arteries. Pulmonary embolus cannot be excluded. 2. No acute lung opacities. 3. Hiatal hernia. 4. Postsurgical changes. Findings telephoned to Dr. Carlos Liang on 06/08/2017 at 1537 hrs. Dictated by: Annie Martell MD, PhD on 06/08/2017 at 15:31 Approved by: Annie Martell MD, PhD on 06/08/2017 at 15:38
[2017-06-08 18:26] VITALS: BP 100/49; PULSE 103; RESP 18; O2SAT 97
== END 2017-06-08 18:31 | disposition home or self-care (01) ==
LOC: SED 12:06
DX: R06.02 Shortness of breath (principal); R07.9 Chest pain, unspecified; M54.9 Dorsalgia, unspecified; I10 Essential (primary) hypertension; K21.9 Gastro-esophageal reflux disease without esophagitis; F32.9 Major depressive disorder, single episode, unspecified; G43.909 Migraine, unspecified, not intractable, without status migrainosus; E03.9 Hypothyroidism, unspecified; J45.909 Unspecified asthma, uncomplicated; M79.7 Fibromyalgia; Z87.440 Personal history of urinary (tract) infections; Z87.442 Personal history of urinary calculi; Z88.1 Allergy status to other antibiotic agents; Z88.8 Allergy status to other drugs, medicaments and biological substances
CPT/HCPCS: 36415; 71020; 71275; 80053; 83605; 85025; 85378; 93005; 96361; 96374; 96375; 99285; J1200; J2270; J2405; J7030; Q9967

== ENCOUNTER 2017-06-14 13:05 | Emergency (ER) | payer OTHER ==
[~2017-06-14] VITALS: Ht 162.6 cm; Wt 100.0 kg
[2017-06-14 13:12] VITALS: BP 114/75; PULSE 74; RESP 18; O2SAT 100
[2017-06-14] MEDS ORDERED: 0.9% Sodium Chloride 1,000 ML IV ONE (14:44)
[2017-06-14 14:51] LABS: BASOPHILS % (AUTO) 0.8 % (0-3); EOSINOPHILS % (AUTO) 1.1 % (0-5); MONOCYTES % (AUTO) 6.8 % (4-12); Mean Corpuscular Hemoglobin 23.4 pg (27.0-35.0); Mean Corpuscular Volume 74.6 fL (81-100); NEUTROPHILS % (AUTO) 77.1 % (40-74); Platelet Count 206 bil/L (150-400)
[2017-06-14 15:07] LABS: APPEARANCE,URINE HAZY (CLEAR,HAZY); COLOR,URINE YELLOW (YELLOW); OCCULT BLOOD,URINE SMALL (NEGATIVE); UROBILINOGEN,URINE NORMAL (NORMAL)
[2017-06-14] MEDS ORDERED: Ondansetron 2 mg/mL 2 mL Inj IVPUSH ONE (15:50)
--- NOTE | 2017-06-14 16:32 | DRSVH ---
PROCEDURE: CT KUB ([id number]) INDICATIONS: abdominal pain, history nephrolithiasis TECHNIQUE: Noncontrast 5 mm thick sections acquired from the diaphragms to the symphysis. 5 mm thick coronal an d sagittal reformats were then performed. For radiation dose reduction, the following was used: aut omated exposure control, adjustment of mA and/or kV according to patient size. COMPARISON: [facility], CT, CT KUB, 02/09/2016, 20:14. FINDINGS: Image quality: Excellent. Lung bases: There is minimal dependent atelectasis. Heart size is normal. A small hiatal hernia is present. Urinary system: There are multiple bilateral renal stones, including the stones on the right with th e largest measuring up to 3 mm and 6 stones on the left with the largest measuring up to 4 mm. There is no hydronephrosis. 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 The ureters appear non-dilat ed throughout their expected courses. Bladder wall thickness is normal; no calcified bladder stones. Other solid organs: Noncontrast images demonstrate no focal hepatic lesions. The spleen is enlarged , measuring 14.2 cm. Gallbladder is surgically absent. Pancreas is normal in contours. No adrenal nodules. Peritoneum and bowel: Stomach and small bowel loops demonstrate normal wall thickness and caliber. T he appendix is normal in appearance. There is moderate colonic stool distention suggesting constipat ion. No free fluid or air. Nodes and vessels: No retroperitoneal or mesenteric adenopathy by size criteria. Aorta and inferior vena cava are normal in caliber. Abdominal wall: No ventral hernias. There is a left posterior implanted neurostimulator with the ep idural lead tips not included on the current study. Pelvis: No free pelvic fluid. No inguinal hernias or adenopathy. Bones: No suspicious bony lesions. No vertebral body compression fractures. IMPRESSION: 1. Bilateral nephrolithiasis without evidence of hydronephrosis. 2. Nonspecific splenomegaly. Dictated by: Bhupendra Cheng M.D. on 06/14/2017 at 16:14 Approved by: Bhupendra Cheng M.D. on 06/14/2017 at 16:31
--- NOTE | 2017-06-14 16:41 | ED.REPORT ---
HPI-Abd Pain F 40 and Over Date of Service Jun 14, 2017 ED Provider: Richard Maier PA-C Liliane is a 41-year-old female with history of breast cancer, nephrolithiasis, asthma presenting to the emergency department with a chief complaint of right flank pain. Patient reports that it began suddenly a day and a half ago. Associated with nausea and vomiting. Denies fever, shaking chills, bowel changes, vaginal bleeding/discharge, urinary symptoms, chest pain, shortness of breath, cough, wheeze. Seen earlier today at the [facility] in [place]. Treated with ketorolac, ondansetron, tamsulosin. No CT was performed. Patient presents to the emergency department due to continuing severe pain. Patient takes chronic opiates for fibromyalgia. Nursing Notes Stated Complaint: KIDNEY STONE Chief Complaint: Female Abdominal Pain Nursing Notes Reviewed: Yes Allergies: Coded Allergies: Cantaloupe (Verified Allergy, Mild, 05/29/17) Makes ears itch Influenza Virus Vaccines (Verified Allergy, Unknown, 05/29/17) hydromorphone (Verified Allergy, Unknown, MAKES HER SICK, 05/29/17) meperidine (Verified Allergy, Unknown, IV - RUINS IV SITES, 05/29/17) metoclopramide (Verified Allergy, Unknown, MAKES HER FEEL LIKE SKIN CRAWLS BAD, 05/29/17) prochlorperazine (Verified Allergy, Unknown, 05/29/17) prochlorperazine edisylate (Verified Allergy, Unknown, 05/29/17) prochlorperazine maleate (Verified Allergy, Unknown, 05/29/17) promethazine (Verified Allergy, Unknown, 05/29/17) Uncoded Allergies: Honey Dew Melon (Allergy, Mild, 12/28/16) Makes ears itch Scheduled Ascorbic Acid (Vitamin C) 250 Mg Tab.chew 250 MG PO DAILY Baclofen (Baclofen) 10 Mg Tablet 10 MG PO QID Cetirizine HCl (Zyrtec) 10 Mg Capsule 10 MG PO prn Clindamycin (Clindamycin) 150 Mg Capsule 300 MG PO QID Doxepin (Doxepin) 10 Mg Capsule 20 MG PO HS Duloxetine (Cymbalta) 60 Mg Capsule.dr 60 MG PO DAILY Esomeprazole Magnesium (Nexium) 40 Mg Capsule.dr 40 MG PO DAILY Levetiracetam (Levetiracetam) 500 Mg Tablet 1,000 MG PO BID Levofloxacin (Levaquin) 750 Mg Tablet 750 MG PO DAILYAC Levothyroxine (Levothyroxine) 112 Mcg Tablet 112 MCG PO DAILY Oxycodone ER (Oxycontin) 30 Mg Tab.er.12h 30 MG PO BID Pregabalin (Lyrica) 150 Mg Capsule 150 MG PO TID Simvastatin (Simvastatin) 40 Mg Tablet 40 MG PO HS Scheduled PRN Albuterol Neb Soln (Albuterol Neb Soln) 1.25 Mg/3 Ml Vial.neb Unknown Dose INHALATION Q4H PRN PRN For Shortness of Breath Docusate Sodium (Colace) 100 Mg Capsule 200 MG PO DAILY PRN PRN For Constipation Ibuprofen (Ibuprofen) 600 Mg Tablet 600 MG PO TID PRN PRN For Pain Ondansetron (Ondansetron) 8 Mg Tablet 8 MG PO TID PRN PRN For Nausea Sumatriptan Succinate (Sumatriptan Succinate) 100 Mg Tablet 100 MG PO PRN PRN PRN headache Please verify dose/frequency, patient states 250mg QID. Maximum daily dosage is 200mg of sumatriptan succinate. diphenhydrAMINE HCl (Benadryl) 25 Mg Capsule 25 MG PO TID PRN PRN For Itching oxyCODONE (oxyCODONE) 10 Mg Tablet 10 MG PO Q6H PRN PRN For Pain General Time Seen by MD: 14:40 Chief Complaint Flank pain right Sudden in Onset?: Yes Past Medical History Past Medical History Notes: Code status DNR Oncologist Dr. 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, on radiation Fibromyalgia Sleep apnea IBS Hypothyroid Kidney stones hiatal hernia recent pyelonephritis colonic seizures chronic pain/opioid use migraines Reports: Asthma, GERD Reports: Depression, Migraines, Thyroid disease, Urinary tract infection Past Surgical History Lithotripsy Breast reduction 2007 spinal chord stimulator 04/2015 gastric sleeve 2015 R partial mastectomy Reports: Cholecystectomy Family History A-fib Smoking History Never Smoker Social History Previous suicide attempt Alcohol Use: Denies alcohol use Drug Use: Denies drug use Other Social History: Local resident Ambulatory Status Independent Review of Systems General: Denies fever, chills, malaise. HEENT: Denies congestion, headache, sore throat. Respiratory: Denies dyspnea, cough, shortness of breath, wheezing. Cardiovascular: Denies chest pain, palpitations. Gastrointestinal: Admits vomiting,abdominal pain. Denies diarrhea, melena, hematochezia Genitourinary: Denies frequency, urgency, dysuria, hematuria. Denies vaginal bleeding/discharge Otherwise as noted in HPI. Physical Exam General: Well appearing, well developed, well nourished, mild distress. Head: Atraumatic, normocephalic. Eyes: No scleral icterus or injection. No discharge. Vision grossly intact. ENT: Voice clear, hearing grossly intact. Respiratory: Regular rate and rhythm. Breath sounds present, clear to auscultation and equal bilaterally. No respiratory distress. No increased work of breathing, speaks in complete sentences. Cardiovascular: Regular rate and rhythm, without murmur, gallop or rub. No pedal edema. Gastrointestinal: Abdomen flat and non-tender without guarding or rebound. Bowel sounds normoactive. Back: Normal to inspection. Moderate CVA tenderness on the right side to palpation, left side to percussion Skin: Warm and dry. Neurological: Grossly nonfocal. Psychological: Alert and oriented. Speech appropriate, linear and logical. Behavior appropriate. Vital Signs Vital Signs (First) Date Time Temp Pulse Resp B/P Pulse Ox O2 Delivery O2 Flow Rate FiO2 06/14/17 13:12 36.7 74 18 114/75 100 Room Air Normal Interpretation & Diagnostics Interpretation & Diagnostics: test negative. Lab Results Interpretation Result Diagram: 06/14/17 1425 06/14/17 1425 Test 06/14/17 14:15 06/14/17 14:25 Urine Color Yellow (YELLOW) Urine Appearance Hazy (CLEAR,HAZY) Urine pH 6.0 (5.0-8.0) Urine Specific Ulmer 1.030 (1.003-1.035) Urine Protein Tracemg/dL (NEG,TRACE) Urine Glucose (UA) Negativemg/dL (NEGATIVE) Urine Ketones Negativemg/dL (NEGATIVE) Urine Occult Blood Small (NEGATIVE) Urine Nitrite Negative (NEGATIVE) Urine Bilirubin Negative (NEGATIVE) Urine Urobilinogen Normalmg/dL (NORMAL) Urine Leukocyte Esterase Negative (NEGATIVE) Urine RBC 3-10/hpf (0-2) Urine WBC 0-5/hpf (0-5) Urine Epithelial Cells Occasional/hpf (NONE-MOD) Urine Crystals None seen (NONE SEEN) Urine Bacteria Few/hpf (NONE-FEW) Urine Hyaline Casts None/lpf (NONE) Urine Granular Casts None seen (NONE SEEN) Urine Waxy Casts None seen (NONE SEEN) Urine Red Blood Cell Casts None seen (NONE SEEN) Urine White Blood Cell Casts None seen (NONE SEEN) Urine Mucus Present (None Seen) Urine Trichomonas None seen (NONE SEEN) Urine Yeast None (NONE SEEN) Urinalysis Comment None Urine Culture Reflexed Not indicated Hold Urine Received (Received) White Blood Count 3.7th/mm3 (3.8-10.1) Red Blood Count 3.94mil/mm3 (3.90-5.20) Hemoglobin 9.2g/dL (12.0-15.6) Hematocrit 29.4% (35.0-46.0) Mean Corpuscular Volume 74.6fL (81-100) Mean Corpuscular Hemoglobin 23.4pg (27.0-35.0) Mean Corpuscular Hemoglobin Concent 31.3% (32.0-37.0) Red Cell Distribution Width 15.9% (12.3-15.4) Platelet Count 206bil/L (150-400) Neutrophils (%) (Auto) 77.1% (40-74) Lymphocytes (%) (Auto) 13.9% (14-46) Monocytes (%) (Auto) 6.8% (4-12) Eosinophils (%) (Auto) 1.1% (0-5) Basophils (%) (Auto) 0.8% (0-3) Sodium Level 139mEq/L (134-144) Potassium Level 4.0mEq/L (3.5-5.2) Chloride Level 103mEq/L (97-108) Carbon Dioxide Level 23mmol/L (18-29) Blood Urea Nitrogen 9mg/dL (6-24) Creatinine 0.69mg/dL (0.57-1.00) Estimat Glomerular Filtration Rate 133mL/min (>59) Glucose Level 98mg/dL (60-99) Calcium Level 8.8mg/dL (8.5-10.1) Total Bilirubin 0.3mg/dL (0.0-1.2) Aspartate Amino Transf (AST/SGOT) 16U/L (0-50) Alanine Aminotransferase (ALT/SGPT) 8U/L (0-32) Alkaline Phosphatase 122U/L (25-150) Total Protein 6.8g/dL (6.4-8.4) Albumin 3.9g/dL (3.4-5.0) Lipase 22U/L (13-60) Hold Johnson Top Tube Received (Received) CT Abd / Pelvis Interpretation PROCEDURE: CT KUB ([id number]) INDICATIONS: abdominal pain, history nephrolithiasis Urinary system: There are multiple bilateral renal stones, including the stones on the right with the largest measuring up to 3 mm and 6 stones on the left with the largest measuring up to 4 mm. There is no hydronephrosis. 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 The ureters appear non-dilated throughout their expected courses. Bladder wall thickness is normal; no calcified bladder stones. IMPRESSION: 1. Bilateral nephrolithiasis without evidence of hydronephrosis. 2. Nonspecific splenomegaly. Interpretation / Wet Read by: Interpret - Radiologist Re-Eval/Medical Decision Med Decision/Clinical Course 31-year-old female with a history of breast cancer, nephrolithiasis this emergency department with a chief complaint of right flank pain that began approximately one half days ago. [facility] [place] [facility] [place] with ketorolac, Flomax, Zofran to poor affect. Presents to the emergency department due to ongoing pain. Physical examination reveals bilateral CVA tenderness, negative abdominal tenderness. Otherwise benign with normal vital signs. CBC, CMP, lipase, UA and CT KUB ordered after consultation with . CBC reveals a cytopenia at 3.7, mild anemia with a hemoglobin of 9.2, hematocrit 29.4. CMP is unremarkable. Lipase is normal. Urinalysis reveals trace protein and small occult blood, otherwise reassuring against UTI. Culture is not reflexed. CT reveals multiple bilateral kidney stones, the largest 4 mm, nonobstructing without hydronephrosis. And nonspecific splenomegaly. Reassured against pyelonephritis, hydronephrosis, cystitis, appendicitis, diverticulitis, pancreatitis, cholecystitis, AAA. I reviewed these results with Dr. Cassidy, we agree she is stable and safe to be discharged to home. Advised [id number] analgesia, continued on home opiate regimen. Provided urology referral. Advised regarding primary care follow-up, provided emergency return precautions. Patient verbalized understanding of, and consent to, the plan. Discharge & Departure Primary Impression: Nephrolithiasis Disposition: Home Discharge Condition Condition: Stable Patient Instructions: Kidney Stones (ED) Additional Instructions: Evaluation in the emergency department for flank pain includes interview, physical examination, blood work, urinalysis and CT scan all of which indicate that you have small kidney stones in both of your kidneys. It is no indication of infection or obstruction, but this is likely to be causing your pain. I believe you are stable and safe to go home. In addition to your normal home pain regimen, you can take 500 mg of naproxen ( Aleve) every 12 hours, and/or 1000 mg of acetaminophen (Tylenol) every 6 hours. These drugs can be taken at the same time for more severe pain. Treat the nausea with the Zofran you already have. Drink small amounts of fluid throughout the day to maintain hydration. I will provide you with a referral to a urologist. Contact them tomorrow to arrange follow-up. Return to emergency department for any new or worsening symptoms including increasing pain, fever, vomiting that does not respond to medication. Referrals: Liu Gallardo MD EDSupervising Provider for APC: Abebe Cassidy DO copies to: Yessi Dallas MD; Liu Gallardo MD, Seth PA-C Jun 14, 2017 16:41
[2017-06-14 17:34] VITALS: BP 101/37; PULSE 80; RESP 18; O2SAT 98
[2017-06-14 17:45] VITALS: BP 101/37; PULSE 80; RESP 18; O2SAT 98
== END 2017-06-14 17:46 | disposition home or self-care (01) ==
LOC: SED 13:05
DX: N20.0 Calculus of kidney (principal); J45.909 Unspecified asthma, uncomplicated; K21.9 Gastro-esophageal reflux disease without esophagitis; M79.7 Fibromyalgia; E03.9 Hypothyroidism, unspecified; G40.909 Epilepsy, unspecified, not intractable, without status epilepticus; F32.9 Major depressive disorder, single episode, unspecified; Z87.440 Personal history of urinary (tract) infections; Z87.442 Personal history of urinary calculi; Z90.49 Acquired absence of other specified parts of digestive tract; Z98.890 Other specified postprocedural states; Z88.1 Allergy status to other antibiotic agents; Z88.5 Allergy status to narcotic agent; Z88.7 Allergy status to serum and vaccine; Z88.8 Allergy status to other drugs, medicaments and biological substances
CPT/HCPCS: 36415; 74176; 80053; 81000; 81025; 83690; 85025; 96361; 96374; 96375; 99285; J2270; J2405; J7030